=== PATIENT | female | born 1935 | race Caucasian/White ===

== ENCOUNTER 2019-10-23 10:55 | Observation (INO) | payer OTHER ==
[~2019-10-23] VITALS: Ht 160 cm; Wt 64.4 kg
--- OUTSIDE RECORDS SUMMARY | 2019-10-23 10:58 | XMS REPORT ---
Author Author [facility] Address Unknown Phone Unavailable Care Team Providers Care Hop Worker Name Role Phone Unavailable Unavailable Payers Payer Name Policy Type Policy Number Effective Date Expiration Date Problems This patient has no known problems. Allergies, Adverse Reactions, Alerts Allergy Name Allergy Type Status Severity Reaction(s) Onset Date Inactive Date Treating Clinician Comments codeine DA Active U 2018-05-11 00:00:00 alendronate sodium DA Active U 2018-05-11 00:00:00 ibandronate sodium DA Active U 2018-05-11 00:00:00 Medications This patient has no known medications. Results Test Description Test Time Test Comments Text Results Atomic Results Result Comments SCR MAMM BILATERAL JUDITH CAD DIGITAL 2018-09-28 16:03:52 - SCR MAMM BILATERAL JUDITH CAD DIGITALBILATERAL DIGITAL SCREENING MAMMOGRAM 3D/2D WITH CAD: 09/28/2018CLINICAL: Asymptomatic. Digital breast tomosynthesis was performed in addition to routine CC and MLO views. Current mammographic images were evaluated by either a [employer] M-Vu or a [employer] ImageChecker CAD (computer aided detection system). Comparison is made to exams dated 07/12/2017 mammogram, mammogram, and 12/11/2016 mammogram - [facility]. There are scattered fibroglandular tissues in both breasts. No suspicious mass, architectural distortion, malignant type calcification, or lymph node abnormality detected. Breast architecture is stable compared to prior exams.IMPRESSION: NEGATIVEThere is no mammographic evidence of malignancy. Resume annual screening mammography in one year. Elvi bustillo/candace:09/28/2018 16:03:52 copy to: Mario Marie MD, ph: [phone], fax: [phone] Technologist: Katharine Quintero , [facility]: BIRADS 1-2 Normal Mammogram BI-RADS: 1 Negative INTERVERTEBRAL DISC 2018-05-17 14:19:00 RUN DATE: 05/17/18 [place] - [facility] PAGE 1 RUN TIME: 1419 Specimen Inquiry RUN USER: INTERFACE PATIENT: SPENSER ARRINGTON LOC: CARLA U #: [id number] AGE/SX: 83/F ROOM: [facility] RE05/16/18REG DR: Mando Carlson MD : 35 BED: A DIS: 05/17/18 STATUS: DIS Dawood TLOC: SPEC #: [id number] RECD: 05/16/18-1203 STATUS: PATEL CLAYTON #: [id number] LUCILA: 05/16/18-[address]: Mando Carlson MD ENTERED: 05/16/18-1205 SP TYPE: INT DISC OTHR DR: Mario Marie MD ORDERED: GROSS [place]IES [place]: [place] [id number] [place] [address] Mando Carlson MD [id number] [address] PROCEDURES: GROSS (05/17/18-1406) TISSUES: CERVICAL VERTEBRA, NOS - DISC CLINICAL HISTORY COLLECTION DATE: 05/16/18 C3-4, C4-5M C5-6 SPONDYLOSIS FINAL DIAGNOSIS Cervical disc material, C3-C6, discectomy: FRAGMENTS OF CARTILAGE WITH DEGENERATIVE CHANGE NEGATIVE FOR MALIGNANCY RRB/sm D 64039, 04627 MACROSCOPIC The specimen is received in formalin, labeled with the patient's name and identified as "cervical disc". It consists of irregular fragments of moody to light pink fibrous tissue and possible fragments of bone measuring 4.0 X 4.0 X up to 0.9 cm in aggregate. Test Manager portions of tissue are submitted for histologic evaluation in a single cassette after decalcification. CONTINUED ON NEXT PAGE RUN DATE: 05/17/18 [facility] PAGE 2 RUN TIME: 1419 Specimen Inquiry RUN USER: INTERFACE SPEC #: [id number] PATIENT: SPENSER ARRINGTON #[id number] (Continued) MACROSCOPIC (Continued) GROSS PERFORMED AT [facility] [address] [place] [address] (p)[phone] MICROSCOPIC MICROSCOPIC PERFORMED AT [facility] All of the stains, including any controls performed, stain appropriately. [facility] [address] [facility], [place] [address] (p)[phone] PERFORMING SITE Processed at: [facility], [place] [address] [place] [address] Signed SIGNATURE ON FILE Zay Ch 05/17/18 1419 END OF REPORT
[2019-10-23] MEDS ORDERED: SODIUM CHLORIDE 0.9% 1000ML 1,000 ML IV STA (11:13)
[2019-10-23] MEDS ORDERED: PANTOPRAZOLE 40 MG 10ML VIAL IV ONE (11:30)
--- NOTE | 2019-10-23 11:32 | NUR ---
CATH PRN URINE SAMPLE PER MD ORDER
[2019-10-23] MEDS ORDERED: ULTRAM 50MG50 MG (11:36)
[2019-10-23] MEDS ORDERED: GABAPENTIN300 MG (11:36)
[2019-10-23] MEDS ORDERED: ALENDRONATE SOD70 MG PO (11:36)
[2019-10-23] MEDS ORDERED: PRAVASTATIN SOD20 MG PO (11:36)
[2019-10-23] MEDS ORDERED: MYRBETRIQ25 MG PO (11:36)
[2019-10-23] MEDS ORDERED: METOPROLOL TART50 MG PO (11:36)
[2019-10-23] MEDS ORDERED: DEXAMETHASONE4 MG (11:36)
[2019-10-23] MEDS ORDERED: DORZOLAMIDE-TIM10 ML (11:36)
[2019-10-23] MEDS ORDERED: LISINOPRIL10 MG PO (11:36)
[2019-10-23] MEDS ORDERED: ISOSORBIDE DINI20 MG (11:36)
[2019-10-23] MEDS ORDERED: LATANOPROST2.5 ML OP (11:36)
[2019-10-23] MEDS ORDERED: METFORMIN HCL500 MG PO (11:36)
[2019-10-23] MEDS ORDERED: NOVOLIN 70100 UNIT/3 (11:37)
[2019-10-23 11:46] LABS: BASOPHILS % 0.4 % (0.0-1.0); EOSINOPHILS # (AUTO) 0.2 (0.0-0.4); EOSINOPHILS % 3.2 % (0.0-6.0); HEMATOCRIT 42.3 % (34.2-44.1); HEMOGLOBIN 13.5 g/dL (12.0-16.0); LYMPHOCYTES # (AUTO) 0.7 (1.0-3.2); LYMPHOCYTES % 9.1 % (18.0-39.1); MEAN CORPUSCULAR HEMOGLOBIN 30.4 pg (28-32); MEAN CORPUSCULAR HGB CONC 31.9 g/dL (31-35); MEAN CORPUSCULAR VOLUME 95.3 fL (81-99); MONOCYTES # (AUTO) 0.8 (0.2-0.8); NEUTROPHILS # (AUTO) 5.7 (2.1-6.9); NEUTROPHILS % 75.9 % (38.7-80.0); PLATELET COUNT 148 x10e3/uL (140-360); RED BLOOD COUNT 4.44 x10e6/uL (3.6-5.1); RED CELL DISTRIBUTION WIDTH 13.5 % (11.7-14.4)
[2019-10-23 12:04] LABS: CLARITY,URINE CLEAR (CLEAR); COLOR,URINE YELLOW (YELLOW); LEUKOCYTE ESTERASE ,URINE MODERATE (NEGATIVE)
--- NOTE | 2019-10-23 12:04 | Diagnostic Imaging Report ---
CT BRAIN WO HISTORY: Headache, syncope. COMPARISON: None. Technique: Noncontrast axial scans were obtained from skull base to the vertex. Coronal and sagittal reconstructions obtained from the axial data. One or more of the following dose reduction techniques were used: Automated exposure control, adjustment of the mA and/or kV according to patient size, and/or utilization of iterative reconstruction technique. DISCUSSION: Scalp/Skull: Unremarkable. Brain sulci: Mildly prominent. Ventricles: Compensatory dilatation. Extra-axial spaces: No masses or fluid collections. Carotid and vertebral artery calcifications are present. Parenchyma: Mild bilateral deep white matter hypodensity is likely chronic microvascular ischemic change. Associated old small bilateral striatocapsular lacunar infarcts are present. There is an old small cortical infarct in the right posterior cerebellum. Otherwise, no masses, hemorrhage, or large vascular territory acute infarct. Dural sinuses: No abnormal densities. Sellar/Suprasellar region: Intact. Skull base: Intact. Incidental findings: Bilateral ocular lens replacement. Nonspecific right middle ear and right mastoid effusion. IMPRESSION: 1. No acute intracranial abnormalities. 2. 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 3. Mild generalized cerebral volume loss. 4. 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 Signed by: Dr. Armond Wise M.D. on 10/23/2019 12:02 PM
[2019-10-23 12:05] LABS: BILIRUBIN,URINE NEGATIVE (NEGATIVE); KETONES,URINE NEGATIVE (NEGATIVE); NITRITE,URINE POSITIVE (NEGATIVE); PROTEIN,URINE DIPSTICK NEGATIVE (NEGATIVE); URINE UROBILINOGEN 0.2 mg/dL (0.2 - 1)
[2019-10-23 12:06] LABS: BACTERIA,URINE FEW /HPF; EPITHELIAL CELLS,URINE FEW /LPF
[2019-10-23 12:07] LABS: INR 0.94; PROTHROMBIN TIME 12.7 seconds (11.9-14.5)
--- NOTE | 2019-10-23 12:07 | Diagnostic Imaging Report ---
EXAMINATION: CHEST SINGLE (PORTABLE) INDICATION: Syncope COMPARISON: None FINDINGS: LINES/TUBES:None LUNGS:The lungs are well-inflated. No focal consolidation or pulmonary edema. PLEURA:No pleural effusion or pneumothorax. MEDIASTINUM:The cardiomediastinal silhouette appears normal in size and shape. Atherosclerotic calcifications of the thoracic aorta. BONES/SOFT TISSUES:No acute osseous injury. ABDOMEN:No free air under the diaphragm. IMPRESSION: No focal pneumonia or pulmonary edema. Signed by: Cooper Hernandez MD on 10/23/2019 12:05 PM
[2019-10-23 12:08] LABS: PARTIAL THROMBOPLASTIN TIME 21.6 seconds (23.8-35.5)
[2019-10-23 12:19] LABS: ALANINE AMINOTRANSFERASE 17 IU/L (0-55); ALBUMIN 2.8 g/dL (3.5-5.0); ALBUMIN/GLOBULIN RATIO 1.3 (0.8-2.0); ALKALINE PHOSPHATASE 100 IU/L (40-150); BLOOD UREA NITROGEN 24 mg/dL (7-26); BUN/CREATININE RATIO 32 (6-25); CALCIUM 8.3 mg/dL (8.4-10.2); CHLORIDE 109 mmol/L (98-107); CREATINE KINASE 38 IU/L (29-168); CREATININE, SERUM 0.76 mg/dL (0.57-1.11); EST GLOMERULAR FILTRATION RATE > 60 ML/MIN (60-); GLUCOSE 188 mg/dL (74-118); MAGNESIUM 1.6 MG/DL (1.3-2.1); POTASSIUM 3.8 mmol/L (3.5-5.1); SODIUM 140 mmol/L (136-145)
[2019-10-23 12:31] LABS: ANION GAP 12.8 mmol/L (8-16); CARBON DIOXIDE 23 mmol/L (22-29)
[2019-10-23] MEDS ORDERED: SODIUM CHLORIDE 0.9% 1000ML 1,000 ML IV ONE (13:45)
[2019-10-23] MEDS ORDERED: ONDANSETRON HCL INJ 2MG/ML 2ML 2 MG/ML VIAL IV PRN (13:45)
[2019-10-23] MEDS: CEFTRIAXONE SOD 1 GM/NS 50 ML 50 ML IV SCH (15:03)
[2019-10-23] MEDS: FAMOTIDINE 20 MG/2 ML VIAL IV SCH (15:03)
[2019-10-23 19:24] LABS: CREATINE KINASE 28 IU/L (29-168)
[2019-10-23] MEDS ORDERED: DEXTROSE 50% SYRINGE 50 ML IV PRN (21:30)
[2019-10-23] MEDS: HYDROCODONE/APAP 5MG-325MG TAB PO PRN (21:46)
[2019-10-23] MEDS: INSULIN LISPRO 100 UNIT/1 ML 3ML VIAL SQ SCH (21:51)
[2019-10-23] MEDS ORDERED: HYDRALAZINE HCL 20 MG/ML VIAL IV PRN (22:15)
[2019-10-23] MEDS ORDERED: METOPROLOL TARTRATE 25 MG TAB ONE (22:30)
[2019-10-23] MEDS: METOPROLOL TARTRATE 50 MG TAB PO SCH (22:31)
[2019-10-24] VITALS (7 sets, daily range): BP systolic 153–197; BP diastolic 73–85
[2019-10-24 01:43] LABS: CREATINE KINASE MB 0.8 ng/mL (0-5.0)
--- NOTE | 2019-10-24 01:49 | NUR ---
PT PLACED IN HOSPITAL BED FOR PT COMFORT AND SAFETY. BED IS LOCKED AND IN LOWEST POSITION. CALL LIGHT IS WITHIN REACH IF IN NEED FOR ASSISTANCE. NAD NOTED AT THIS TIME. PT LAYING COMFORTABLY IN BED.
[2019-10-24] MEDS: CEFTRIAXONE SOD 1 GM/NS 50 ML 50 ML IV SCH ×2 (04:18→13:27)
[2019-10-24] MEDS: FAMOTIDINE 20 MG/2 ML VIAL IV SCH ×2 (04:18→13:27)
--- NOTE | 2019-10-24 07:08 | NUR ---
RECEIVED REPORT FROM OFF GOING NURSE. PATIENT IN ROOM IN HOSPITAL BED. AWAKE AND ALERT. NO S/S OF ACUTE DISTRESS. RESP EVEN AND NONLABORED. PENDING ROOM ASSIGNMENT FOR ADMISSION. BED DOWN, CALL LIGHT IN REACH, WILL CONTINUE TO MONITOR.
[2019-10-24 07:12] LABS: ANION GAP 12.9 mmol/L (8-16); BLOOD UREA NITROGEN 19 mg/dL (7-26); CARBON DIOXIDE 23 mmol/L (22-29); CHLORIDE 110 mmol/L (98-107); POTASSIUM 3.9 mmol/L (3.5-5.1); SODIUM 142 mmol/L (136-145)
[2019-10-24 07:13] LABS: ALANINE AMINOTRANSFERASE 15 IU/L (0-55); ALBUMIN 2.9 g/dL (3.5-5.0); ALBUMIN/GLOBULIN RATIO 1.3 (0.8-2.0); ALKALINE PHOSPHATASE 79 IU/L (40-150); BUN/CREATININE RATIO 25 (6-25); CALCIUM 8.6 mg/dL (8.4-10.2); CHOL/HDL RATIO 2.7 (3.0-3.6); CHOLESTEROL 136 MD/DL (0-199); CREATININE, SERUM 0.75 mg/dL (0.57-1.11); EST GLOMERULAR FILTRATION RATE > 60 ML/MIN (60-); GLUCOSE 134 mg/dL (74-118); HDL CHOLESTEROL 50 MG/DL (40-60); LDL CHOLESTEROL 77 MG/DL (60-130); TRIGLYCERIDES 46 MG/DL (0-149)
[2019-10-24] MEDS: INSULIN LISPRO 100 UNIT/1 ML 3ML VIAL SQ SCH ×4 (07:32→22:56)
[2019-10-24] MEDS: METOPROLOL TARTRATE 50 MG TAB PO SCH ×2 (08:06→17:46)
[2019-10-24 08:23] LABS: CREATINE KINASE 23 IU/L (29-168)
[2019-10-24 08:52] LABS: HEMOGLOBIN 13.9 g/dL (12.0-16.0); MEAN CORPUSCULAR HEMOGLOBIN 30.3 pg (28-32); MEAN CORPUSCULAR HGB CONC 32.3 g/dL (31-35); MEAN CORPUSCULAR VOLUME 93.7 fL (81-99); RED BLOOD COUNT 4.59 x10e6/uL (3.6-5.1)
[2019-10-24 08:53] LABS: BASOPHILS % 0.5 % (0.0-1.0); EOSINOPHILS # (AUTO) 0.2 (0.0-0.4); EOSINOPHILS % 2.3 % (0.0-6.0); LYMPHOCYTES # (AUTO) 1.4 (1.0-3.2); LYMPHOCYTES % 15.5 % (18.0-39.1); NEUTROPHILS # (AUTO) 6.1 (2.1-6.9); NEUTROPHILS % 70.4 % (38.7-80.0); PLATELET COUNT 146 x10e3/uL (140-360); RED CELL DISTRIBUTION WIDTH 13.8 % (11.7-14.4)
[2019-10-24] MEDS ORDERED: VITAMIN B122500 MCG PO (10:42)
[2019-10-24] MEDS ORDERED: preser vision OU (10:42)
[2019-10-24] MEDS ORDERED: GABAPENTIN300 MG PO (10:42)
[2019-10-24] MEDS ORDERED: [UNRECOGNIZED DRUG - OTHER] TOP (10:42)
[2019-10-24] MEDS ORDERED: NITROGLYCERIN0.4 MG SL (10:42)
[2019-10-24] MEDS ORDERED: LOW DOSE ASPIRI81 MG PO (10:42)
[2019-10-24] MEDS ORDERED: VITAMIN D32000 UNI1 PO (10:42)
[2019-10-24] MEDS ORDERED: BENADRYL25 M1 PO (10:42)
[2019-10-24] MEDS ORDERED: SODIUM CHLORIDE 0.9% 250ML 250 ML ONE (12:35)
[2019-10-24] MEDS ORDERED: VITAMIN C500 M1 PO (12:55)
[2019-10-24] MEDS ORDERED: NPH (12:55)
--- NOTE | 2019-10-24 13:08 | NUR ---
PATIENT ARRIVED ON THE UNIT AT 1150 PER BED FROM THE ER. PATIENT IS ALERT, AWAKE, AND IN STABLE CONDITION WITH NO S/S OF RESPIRATORY DISTRESS. PATIENT DENIES PAIN. TELEMETRY APPLIED. BRUISES NOTED TO UPPER EXTREMITIES. BED ALARM APPLIED. CALL LIGHT IS WITHIN REACH OF PATIENT- PATIENT INSTRUCTED TO CALL FOR ASSISTANCE NEEDED AND PRIOR TO GETTING OUT OF BED.
[2019-10-24] MEDS ORDERED: ALPRAZOLAM 0.5 MG TAB PO NR (14:30)
[2019-10-24] MEDS: HYDROCODONE/APAP 5MG-325MG TAB PO PRN ×2 (14:38→23:00)
[2019-10-24] MEDS: LOSARTAN POTASSIUM 100 MG TAB PO SCH (14:38)
[2019-10-24] MEDS ORDERED: DORZOLAMIDE-TIM10 ML OP (14:44)
--- NOTE | 2019-10-24 15:00 | NUR ---
Visit made by the Spiritual Care Department Pastoral Visitor, Paige Laurent. PV provided pastoral presence, prayer, hospitality, and supportive listening. Pastoral Visitor informed pt/family of the scope of [facility] and availability. CARLENE LARA Foreign Language Professor Spiritual Care Department O: [phone] Pager: [phone] ([phone] number calling from)
[2019-10-24] MEDS: ASCORBIC ACID 500 MG TAB PO SCH (17:46)
--- NOTE | 2019-10-24 19:05 | NUR ---
PATIENT REPOSITION IN BED- PATIENT IN STABLE CONDITION WITH NO S/S OF RESPIRATORY DISTRESS. NO PAIN VOICED. TELEMETRY APPLIED. BED ALARM APPLIED. CALL LIGHT IS WITHIN REACH, PATIENT INSTRUCTED TO CALL FOR ASSISTANCE NEEDED. BEDSIDE SHIFT REPORT GIVEN TO ONCOMING NURSE.
[2019-10-24] MEDS ORDERED: PRAVASTATIN 20 MG TAB PO SCH (21:00)
[2019-10-24] MEDS ORDERED: LATANOPROST(OPTH) 2.5 ML BTL OP SCH (21:00)
[2019-10-24] MEDS ORDERED: LISINOPRIL 10 MG TAB PO SCH (21:00)
--- NOTE | 2019-10-24 22:20 | History and Physical ---
CHIEF COMPLAINT: Syncopal episode. HISTORY OF PRESENT ILLNESS: This is an 84-year-old female, who presented to the ED with underlying syncopal episode occurred at home. Daughter at bedside reports that her mom this morning was found to be minimally responsive on examination. She reports that her father called her, noticed that her mom was not responsive. She did have a pulse. She was breathing with no issues. She called 911 and the patient became a little bit more responsive. The patient apparently was snoring. There was no reports of any history of seizure-like activity stroke-like symptoms, slurred speech or any facial drooping. No reports of any chest pain or palpitations with this occurred. The patient was seen and evaluated at bedside on the medical floor. She is currently doing well with no other issues at this time. The patient does take Benadryl at home for sleep, which could be contributing overall as well as gabapentin. The patient was evaluated at bedside. She reports doing much better today with no complaints. No reports of any chest pain or any palpitations. No fever, cough, or any recent infection. REVIEW OF SYSTEMS: Pertinent positives syncopal episodes. The rest of the 14-point review of systems have been reviewed with the patient and are negative. Denies any chest pain, palpitation, nausea, vomiting, diarrhea, dysuria, hematuria, frequency, urgency, lightheadedness, dizziness, abdominal pain, headaches, shortness of breath, cough, congestion, fever, or any other complaints. The rest of 14-point review of systems have been reviewed with the patient and are negative. ALLERGIES: NO KNOWN DRUG ALLERGIES. HOME MEDICATIONS: See med reconciliation form. PAST MEDICAL HISTORY: Type 2 diabetes, hypertension, peripheral neuropathy, osteoporosis. PAST SURGICAL HISTORY: Reports none. FAMILY HISTORY: Hypertension diabetes. SOCIAL HISTORY: No drugs, no alcohol, does not smoke. Good social support. PHYSICAL EXAMINATION: VITAL SIGNS: Temperature is 98.5, pulse is 77, respiratory rate is 19, blood pressure is 164/78, pulse ox 100% on room air. LABORATORY FINDINGS: Show white count 8.7, hemoglobin 13.8, hematocrit 43, platelets of 146. Coagulation PT 12, INR 0.94, PTT 21.6. Chemistry sodium 142, potassium 3.9, chloride 110, bicarb 23, anion gap of 12, BUN is 19, creatinine 0.75, glucose 134, calcium 8.6. LFTs within normal range. albumin 2.9, LDL 77. Urinalysis concerning for underlying urinary tract infection with positive nitrite, WBC 6-10. Flu was negative. Group A strep was negative. MICROBIOLOGY: Blood cultures were negative. Throat cultures so far negative. Urine culture shows gram-negative bacilli. IMAGING STUDIES: CT brain, no acute intracranial abnormalities. Mild supratentorial chronic microvascular ischemic changes with old small bilateral capsular lacunar infarct. Nothing acute seen. Mild generalized cerebral volume loss. 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 Chest x-ray was negative. PHYSICAL EXAMINATION: GENERAL: Not in acute distress, alert and oriented x3. Cooperative on examination. HEENT: Head is normocephalic, atraumatic. Eyes; pupils are equal, round, and reactive to light bilaterally. Extraocular movements intact bilaterally. NECK: Supple. Good range of motion. Throat; no evidence of erythema or exudates in the posterior pharynx. Has poor dentition. PULMONARY: Clear to auscultation bilaterally. No wheezing, rales, or rhonchi. No crackles appreciated. CARDIOVASCULAR: Positive S1, S2. No murmurs, rubs, or gallops. ABDOMEN: Soft, nondistended, nontender to palpation. Bowel sounds present. MUSCULOSKELETAL: Strength is 5/5 throughout. No evidence of any muscle deficits on examination. No weakness appreciated. NEUROLOGIC: Cranial nerves 2 through 12 grossly intact. No evidence of any neurologic deficits on exam. SKIN: Intact. Warm to touch. Good cap refill. PSYCHIATRIC: Normal affect and mood. EXTREMITIES: No edema. Good range of motion throughout. IMPRESSION: 1. Syncopal episode, likely secondary to underlying urinary tract infection. 2. Urinary tract infection. 3. Type 2 diabetes. 4. Hypertension. PLAN: At this time as per her syncopal episode it seems to be likely from her UTI despite she had no symptoms. We will monitor the urine culture which is gram-negative bacilli. Blood cultures are negative. IV antibiotic therapy has been initiated. We will go ahead and get a 2D echo. Continue with cardiac telemetry. Troponins have been negative. We will go ahead and consult with Cardiology as well. MRI of the brain and carotid ultrasound has been ordered as well to complete the workup. We will get PT and OT evaluation. Insulin sliding scale, Accu-Cheks, A1c. TSH level. Resume same home medications. Monitor very closely p.r.n. hydralazine. Lovenox for DVT prophylaxis. MD TRENT Johnson/GALINA /[id number]
--- NOTE | 2019-10-24 23:24 | Consultation ---
DATE OF CONSULTATION: 10/24/2019 Cardiology Consult HISTORY OF PRESENT ILLNESS: Myesha Jose is an 84-year-old female with a primary history of hypertension, hyperlipidemia, and diabetes, admitted after a syncopal episode after a walk from the dining room to the kitchen using her walker associated with loss of consciousness that lasted for minutes. Family has witnessed the event and denies any signs of seizure or jerking movements. No reports of incontinence or apnea. However, family reports low systolic blood pressure when EMS took the BP, but no loss of pulse. There is also no report of any complaints from the patient of any chest pains or palpitations or vomiting. The patient also complained of having fast heartbeat sometimes and also she was told she had a heart attack in 1996 from which she had an angioplasty, but never had any problems since then and have not seen any semiconductor engineer since 1996. MEDICAL HISTORY: Hypertension, diabetes, hyperlipidemia, osteoarthritis, heart disease or CAD. SURGICAL HISTORY: She had neck and back surgeries, cataract and tubal ligation. FAMILY HISTORY: Parents are . Dad of pneumonia and kidney problems. Mom of old age. SOCIAL HISTORY: She is nonsmoker. No alcohol or drug use. ALLERGIES: SHE HAS ALLERGY TO CODEINE. HOME MEDICATIONS: She takes: 1. Aspirin. 2. Lisinopril 10 mg daily. 3. Metoprolol 75 mg b.i.d. 4. Aspirin 81 mg daily. 5. Pravastatin 20 mg daily. 6. Metformin 500 mg daily. 7. Insulin NPH. 8. She also takes gabapentin 200 mg three times a day. 9. Vitamin B12. 10. Vitamin D3. 11. Ascorbic acid. PHYSICAL EXAMINATION: VITAL SIGNS: Blood pressure is 164/78, pulse rate of 77, respiratory rate of 19, temperature is 98.5, 100% on room air. GENERAL: The patient is well developed, well nourished, no acute respiratory distress. SKIN: Normal in appearance, texture, and temperature, warm and dry. HEENT: The patient's cranium is normocephalic and atraumatic. Pupils are equally round and reactive to light and accommodation. Sclera is nonicteric. Ears are normal. Mucosa is moist. Throat is clear. NECK: Supple. Full range of motion. No thyromegaly. No JVD. RESPIRATORY: Normal respiratory effort. LUNGS: Clear to auscultation bilaterally. No wheezing or rhonchi or rales or rubs. CARDIOVASCULAR: S1 and S2 audible. Regular rate and rhythm. No significant murmurs. GASTROINTESTINAL: Soft, nontender, nondistended. Bowel sounds are present. EXTREMITIES: No cyanosis or edema. NEUROVASCULAR: Motor is intact. Pulses are palpable 1+ throughout. NEUROLOGIC: Motor and sensory examination of the upper and lower extremities is normal. Reflexes are normal and symmetrical. ASSESSMENT AND PLAN: The patient is an 84-year-old admitted after a syncopal episode, it seems like a vasovagal reflex or maybe orthostatic hypotension or maybe a possible cardiac etiology. ED EKG showed normal sinus rhythm, non-ischemic and no evidence of any heart blocks. However, patient had five beats of ventricular run over night of which patient denies any symptoms. 1. We will monitor on telemetry and monitor hemodynamics and electrolyte imbalances and give replacement if necessary. Continue on aspirin, BUDDY and beta blockers. 2. Echocardiogram. 3. Carotid Doppler. Thank you for this consultation. Further recommendation will follow depending on clinical course. Dictated by Mary Jane Herrera NP MD LUCRECIA Solis/GALINA /[id number]
[2019-10-25] VITALS (9 sets, daily range): BP systolic 104–190; BP diastolic 49–78
[2019-10-25] MEDS: FAMOTIDINE 20 MG/2 ML VIAL IV SCH (01:23)
--- NOTE | 2019-10-25 04:25 | NUR ---
ROUTINE VITAL CHECK PERFORMED, REPORTED BY [facility] SNORKELLING INSTRUCTOR PATIENT BLOOD PRESSURE 190/77, RECHECKED BY THIS NURSE SBP 182/76, PRN HYDRALAZINE GIVEN ORDERED, WILL REASSESS VITALS CA PROTOCOL
[2019-10-25] MEDS: HYDROCODONE/APAP 5MG-325MG TAB PO PRN (04:57)
--- NOTE | 2019-10-25 05:00 | NUR ---
patient c/o chest pressure mid chest pain level 7/10, EKG STAT ORDERED PER PROTOCOL, MD CASTREJON PAGED, INFORMED OF PATIENT COMPLAINT, AND THE EKG RESULT, NO ORDERS GIVEN, STATES "I WILL SEE THE PATIENT DURING ROUNDING, PRN PAIN MEDICATION GIVEN PO FOR RELIEF
[2019-10-25 05:40] LABS: BASOPHILS % 0.4 % (0.0-1.0); EOSINOPHILS # (AUTO) 0.4 (0.0-0.4); EOSINOPHILS % 4.4 % (0.0-6.0); HEMATOCRIT 46.7 % (34.2-44.1); HEMOGLOBIN 15.7 g/dL (12.0-16.0); LYMPHOCYTES # (AUTO) 1.7 (1.0-3.2); LYMPHOCYTES % 18.8 % (18.0-39.1); MEAN CORPUSCULAR HEMOGLOBIN 30.5 pg (28-32); MEAN CORPUSCULAR HGB CONC 33.6 g/dL (31-35); MEAN CORPUSCULAR VOLUME 90.7 fL (81-99); MONOCYTES # (AUTO) 0.9 (0.2-0.8); MONOCYTES % 10.2 % (4.4-11.3); NEUTROPHILS # (AUTO) 5.9 (2.1-6.9); NEUTROPHILS % 65.9 % (38.7-80.0); PLATELET COUNT 166 x10e3/uL (140-360); RED BLOOD COUNT 5.15 x10e6/uL (3.6-5.1); RED CELL DISTRIBUTION WIDTH 13.8 % (11.7-14.4)
[2019-10-25 06:01] LABS: CALCIUM 8.8 mg/dL (8.4-10.2); CREATININE, SERUM 0.96 mg/dL (0.57-1.11)
[2019-10-25 06:24] LABS: THYROID STIMULATING HORMONE 1.642 uIU/mL (0.350-4.940)
--- NOTE | 2019-10-25 07:21 | NUR ---
SBAR REPORT GIVEN TO ONCOMING SHIFT RN CASSANDRA, INFORMED HER OF PATIENT C/O CHEST PAIN, AND MD CASTREJON TO SEE PT, EKG STRIP IN PT CHART
--- NOTE | 2019-10-25 07:45 | NUR ---
Paged Dr. Modesto barnhart for call back.
--- NOTE | 2019-10-25 07:54 | NUR ---
Dr. Juanito Walters here rounding made aware patient c/o of chest pain, and jaw pain, also made aware she c/o eariler of chest pain, ERG showed SR with PVC, received orders to give patient 1mg of Ativan IV.
[2019-10-25] MEDS ORDERED: LORAZEPAM INJ 2 MG/ML VIAL IV PRN (08:00)
[2019-10-25] MEDS: METOPROLOL TARTRATE 50 MG TAB PO SCH (08:17)
[2019-10-25] MEDS: LOSARTAN POTASSIUM 100 MG TAB PO SCH (08:18)
[2019-10-25] MEDS: ASCORBIC ACID 500 MG TAB PO SCH ×2 (08:21→12:02)
[2019-10-25] MEDS ORDERED: LORAZEPAM INJ 2 MG/ML VIAL IV ONE (08:30)
[2019-10-25] MEDS: INSULIN LISPRO 100 UNIT/1 ML 3ML VIAL SQ SCH ×2 (08:32→12:03)
[2019-10-25] MEDS ORDERED: CEFTRIAXONE SOD 1 GM/NS 50 ML 50 ML IV SCH (09:00)
[2019-10-25] MEDS ORDERED: ONDANSETRON HCL 4 MG ORAL DISINTEGRATING TAB PO PRN (09:30)
--- NOTE | 2019-10-25 11:26 | Diagnostic Imaging Report ---
EXAMINATION: MRI of the brain without contrast. HISTORY: Syncope COMPARISON: Head CT 10/23/2019 TECHNIQUE: Sagittal T2; axial DWI, T2, FLAIR, T1-IR, T2 gradient echo; coronal FLAIR. FINDINGS: Parenchyma: 1. Few scattered and mildly confluent periventricular matter T2 and FLAIR hyperintense foci, which most likely corresponds to nonspecific chronic microvascular ischemic changes. 2. Unchanged tiny bilateral striatocapsular lacunar infarcts. 3. Again noted small chronic cortical infarct in the right posterior cerebellum and left superior cerebellum. 4. No mass, hemorrhage, acute or chronic infarcts. Skull: Unremarkable. Vessels: Expected flow voids present in the major arteries and dural sinuses. Extra-axial spaces: No abnormal signal intensity or mass effect. Brain volume: Within normal limits for age. Ventricles: No hydrocephalus or displacement. Foramen magnum: Unremarkable. Sella: Unremarkable. Paranasal / mastoid sinuses: No significant inflammatory disease. Incidental findings: Partially visualized upper cervical spine fusion hardware and associated magnetic susceptibility artifact. IMPRESSION: 1. No acute infarcts, unchanged compared to head CT of 10/23/2019. 2. Stable mild nonspecific white matter chronic microvascular ischemic changes and small chronic infarcts as detail above. Signed by: Dr. Essie Martino M.D. on 10/25/2019 11:23 AM
--- NOTE | 2019-10-25 13:30 | NUR ---
Nutrition Screen Note RD Recommendation for Physician: - Continue current diet - BG and insulin management per MD Plan of Care: RD following, monitoring for tolerance and adequacy Nutrition reason for involvement: Nutrition risk trigger- MST3 Primary Diagnose(s): syncope PMH: DM2, HTN, osteoporosis, peripheral neuropathy Ht: 63 in Wt: 142 lb BMI: 25.2 kg/m2 IBW: [address] Assessment: (10/25/19) 84 YOF admitted for syncope, evaluated today MST screen. 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 Pt with no wt loss per family and no difficulties chewing or swallowing. No reported GI distress. Chart reviewed. Labs and meds reviewed, elevated BG trend- currently on humalog. Current Diet: 1800 ADA Malnutrition Evaluation (10/25/19) The patient does not meet criteria for a specified degree of malnutrition at this time. Will re-evaluate at follow-up as appropriate. Diet Education Needs Assessment: Diet education not indicated. Diet tolerance: tolerating po Nutrition Care Level: low Signed: Neema Camacho RD, LD, [facility]
--- NOTE | 2019-10-25 16:00 | NUR ---
Patient discharged home verbalized understanding of d/c instructions. IV access discontinued prior to discharge, escorted via wheel chair by nursing staff to meet ride in front of hospital.
[2019-10-25] MEDS ORDERED: METOPROLOL TARTRATE 50 MG TAB PO SCH (17:00)
[2019-10-25] MEDS ORDERED: ALPRAZOLAM 0.5 MG TAB PO ONE (18:00)
[2019-10-25] MEDS ORDERED: FAMOTIDINE 20 MG TAB PO SCH (21:00)
--- NOTE | 2019-10-26 05:38 | Discharge Summary ---
FINAL DISCHARGE DIAGNOSES: 1. Syncopal episode, likely vasovagal in nature. 2. Urinary tract infection, which also could explain underlying syncopal episode. 3. Type 2 diabetes. 4. Hypertension. CONSULTANTS: Cardiology. VITAL SIGNS: Temperature 96, pulse 86, respiratory rate is 18, blood pressure 147/65, pulse ox is 96% on room air. LABORATORY FINDINGS: Show white count 8.8, hemoglobin 15, hematocrit 46, platelets of 166. Coagulation; PT 12, INR 0.94, PTT 21. Chemistry; sodium 140, potassium 4, chloride 107, bicarb 20, anion gap of 17, BUN is 27, creatinine is 0.96, glucose is 217, calcium is 8.8, total bilirubin is 0.4. LFTs are within normal range. Ammonia level was 49. Troponins were all negative. LDL found to be 77. TSH is 1.6. Urinalysis concerning for UTI. Serology group A strep negative, influenza negative. MICROBIOLOGY: Urine culture positive for E coli, though cultures were found to be negative. Blood cultures were found to be negative greater than 48 hours. IMAGING STUDIES: Chest x-ray, no focal pneumonia or pulmonary edema. CT brain was found to be negative for any acute findings. MRI of the brain, no acute infarct seen. A 2D echo shows an EF of 45% to 50%. Carotid ultrasound shows no evidence of any carotid stenosis bilaterally. HOSPITAL COURSE: This is an 84-year-old female, who came into the ED after having a syncopal episode that occurred at home. The patient was admitted presumed to have underlying vasovagal nature, underlying urinary tract infection leading to underlying syncopal episode. Full workup was performed. The patient was under observation. MRI of the brain was found to be negative. CT brain found to be negative. Carotid ultrasound found to be negative. A 2D echo shows an EF of 45%. The patient was found to have urinary tract infection, which treated accordingly with IV antibiotics. It seems that the likely etiology of her syncope is likely due to urinary tract infection. She was discharged on oral Omnicef. Cardiology was consulted. As per Cardiology, cardiac enzymes were found to be negative. A 2D echo results above. No further cardiac workup was needed and was cleared for discharge by Cardiology. The patient worked with PT and OT. She was ambulating well with no complaints. She had no overnight events. She had no other complaints. The patient was back to normal baseline prior to being discharged home. I discussed with the family at bedside and they verbalized in agreement that the patient is ready for discharge home. On the day of discharge, vital signs were stable, labs reviewed and stable. The patient seen and evaluated, examined thoroughly on the day of discharge, no other complaints. The patient verbalized understanding and agrees to plan of care to follow up accordingly as an outpatient with primary care physician in 1 week and the paddock judge in 2 weeks' time. MEDICATIONS: See med reconciliation form. DISPOSITION: Home. CONDITION: Stable. DIET: Heart healthy. In the event of any worsening symptoms, the patient was advised to come back to the ED for further evaluation. Discharge summary took greater than 35 minutes. MD TRENT Johnson/MODL /[id number]
== END 2019-10-25 16:00 | disposition home or self-care (01) ==
LOC: ER 10:55 → ERHOLD 13:48 → MED/SURG3 10-24 11:50
PROVIDERS: ADMIT Internal Medicine; ATTEND Internal Medicine
DX: N39.0 Urinary tract infection, site not specified (principal); E11.9 Type 2 diabetes mellitus without complications; I10 Essential (primary) hypertension; E78.5 Hyperlipidemia, unspecified; M19.90 Unspecified osteoarthritis, unspecified site; I25.10 Atherosclerotic heart disease of native coronary artery without angina pectoris
CPT/HCPCS: 36415 ×3; 70450; 70551; 71045; 80048; 80053 ×2; 80061; 81001; 82140; 82550 ×2; 82553 ×2; 82948 ×3; 83518; 83605; 83735; 84443; 84484 ×2; 85025 ×3; 85610; 85730; 87040; 87070; 87086; 87186; 87400; 93005; 93041; 93306; 93880; 99285; C9113; G0378 ×3; J0360; J0696 ×3; J2060; J2405; J7030; J7050

== ENCOUNTER 2022-05-08 07:40 | Inpatient (IN) | payer MEDICARE, OTHER ==
[~2022-05-08] VITALS: Ht 160 cm; Wt 64.4 kg
[~2022-05-08 07:40] MED LIST: ALENDRONATE SOD70 MG PO; BENADRYL25 M1 PO; DEXAMETHASONE4 MG; DORZOLAMIDE-TIM10 ML; DORZOLAMIDE-TIM10 ML OP; GABAPENTIN300 MG; GABAPENTIN300 MG PO; ISOSORBIDE DINI20 MG; LATANOPROST2.5 ML OP; LISINOPRIL10 MG PO; LOW DOSE ASPIRI81 MG PO; METFORMIN HCL500 MG PO; METOPROLOL TART50 MG PO; MYRBETRIQ25 MG PO; NITROGLYCERIN0.4 MG SL; NOVOLIN 70100 UNIT/3; NPH; PRAVASTATIN SOD20 MG PO; ULTRAM 50MG50 MG; VITAMIN B122500 MCG PO; VITAMIN C500 M1 PO; VITAMIN D32000 UNI1 PO; [UNRECOGNIZED DRUG - OTHER] TOP; preser vision OU
[2022-05-08] MEDS ORDERED: SODIUM CHLORIDE 0.9% 1000ML 1,000 ML IV STA (07:57)
[2022-05-08 08:11] LABS: BASOPHILS % 0.1 % (0.0-1.0); LYMPHOCYTES # (AUTO) 0.8 (1.0-3.2); LYMPHOCYTES % 5.2 % (18.0-39.1); MEAN CORPUSCULAR HEMOGLOBIN 29.9 pg (28-32); MEAN CORPUSCULAR HGB CONC 31.8 g/dL (31-35); MONOCYTES # (AUTO) 0.5 (0.2-0.8); MONOCYTES % 3.6 % (4.4-11.3); NEUTROPHILS # (AUTO) 13.2 (2.1-6.9); NEUTROPHILS % 90.5 % (38.7-80.0); PLATELET COUNT 215 x10e3/uL (140-360); RED BLOOD COUNT 4.68 x10e6/uL (3.6-5.1); RED CELL DISTRIBUTION WIDTH 13.2 % (11.7-14.4)
[2022-05-08] MEDS ORDERED: ONDANSETRON HCL INJ 2MG/ML 2ML 2 MG/ML VIAL IV STA ×2 (08:15)
[2022-05-08] MEDS ORDERED: FENTANYL CITRATE/PF 100MCG/2 ML INJ IV ONE ×2 (08:30)
[2022-05-08] MEDS ORDERED: FENTANYL CITRATE/PF 100MCG/2 ML INJ ONE (08:31)
[2022-05-08] MEDS ORDERED: FLONASE ALLERG9.9 ML INH (09:05)
[2022-05-08] MEDS ORDERED: MYRBETRIQ50 MG PO (09:05)
[2022-05-08] MEDS ORDERED: ULTRAM50 MG PO (09:05)
[2022-05-08] MEDS ORDERED: LOSARTAN POTAS100 MG PO (09:05)
[2022-05-08] MEDS ORDERED: CARVEDILOL25 MG PO (09:05)
[2022-05-08 09:16] LABS: INR 0.96; PROTHROMBIN TIME 13.7 seconds (11.9-14.5)
[2022-05-08 09:17] LABS: ALBUMIN 3.7 g/dL (3.5-5.0); ALBUMIN/GLOBULIN RATIO 1.4 (0.8-2.0); ANION GAP 17.6 mmol/L (8-16); CALCIUM 8.8 mg/dL (8.4-10.2); CREATININE, SERUM 0.86 mg/dL (0.57-1.11); MAGNESIUM 2.1 MG/DL (1.3-2.1); PARTIAL THROMBOPLASTIN TIME 26.3 seconds (23.8-35.5); POTASSIUM 4.6 mmol/L (3.5-5.1)
[2022-05-08 09:40] LABS: CREATINE KINASE MB 2.6 ng/mL (0-5.0)
[2022-05-08 10:19] LABS: CLARITY,URINE CLOUDY (CLEAR); COLOR,URINE YELLOW (YELLOW)
[2022-05-08 10:20] LABS: KETONES,URINE NEGATIVE (NEGATIVE); LEUKOCYTE ESTERASE ,URINE NEGATIVE (NEGATIVE); NITRITE,URINE NEGATIVE (NEGATIVE); PROTEIN,URINE DIPSTICK NEGATIVE (NEGATIVE); URINE UROBILINOGEN 0.2 mg/dL (0.2 - 1)
[2022-05-08 10:30] LABS: BACTERIA,URINE MANY /HPF; EPITHELIAL CELLS,URINE RARE /LPF; RBC,URINE 0-5 /HPF (0-5)
[2022-05-08] MEDS: INSULIN LISPRO 100 UNIT/1 ML 3ML VIAL SQ SCH ×3 (12:08→21:00)
[2022-05-08] MEDS: SODIUM CHLORIDE 0.9% 1000ML 1,000 ML IV SCH ×2 (12:14→21:50)
[2022-05-08] MEDS: Morphine 2mg Syringe 2 MG/ML SYR IV PRN ×3 (12:29→21:50)
[2022-05-08] MEDS: ONDANSETRON HCL INJ 2MG/ML 2ML 2 MG/ML VIAL IV PRN ×3 (12:29→21:51)
[2022-05-08 17:05] LABS: CREATINE KINASE MB 2.8 ng/mL (0-5.0)
[2022-05-08 18:03] VITALS: BP 139/63
[2022-05-08 18:26] VITALS: BP 139/63
[2022-05-08 20:00] VITALS: BP 140/59
[2022-05-08 21:37] VITALS: BP 140/59
[2022-05-08] MEDS ORDERED: TRAMADOL/APAP 37.5MG-325MG TAB PO PRN (22:00)
[2022-05-08] MEDS: INSULIN GLARGINE 100 UNITS/ML VIAL SQ SCH (22:00)
[2022-05-08] MEDS: CARVEDILOL 12.5 MG TAB PO SCH (22:00)
[2022-05-09] VITALS (7 sets, daily range): BP systolic 117–172; BP diastolic 58–76
[2022-05-09] MEDS: ONDANSETRON HCL INJ 2MG/ML 2ML 2 MG/ML VIAL IV PRN ×4 (04:54→17:47)
[2022-05-09] MEDS: Morphine 2mg Syringe 2 MG/ML SYR IV PRN ×6 (04:54→21:49)
[2022-05-09] MEDS: HYDRALAZINE HCL 20 MG/ML VIAL IV PRN (04:55)
[2022-05-09 04:59] LABS: BASOPHILS % 0.1 % (0.0-1.0); HEMATOCRIT 43.9 % (34.2-44.1); LYMPHOCYTES # (AUTO) 0.8 (1.0-3.2); LYMPHOCYTES % 5.5 % (18.0-39.1); MEAN CORPUSCULAR HGB CONC 31.9 g/dL (31-35); MEAN CORPUSCULAR VOLUME 94.2 fL (81-99); MONOCYTES # (AUTO) 0.8 (0.2-0.8); MONOCYTES % 5.2 % (4.4-11.3); NEUTROPHILS # (AUTO) 12.9 (2.1-6.9); NEUTROPHILS % 88.4 % (38.7-80.0); PLATELET COUNT 176 x10e3/uL (140-360); RED BLOOD COUNT 4.66 x10e6/uL (3.6-5.1); RED CELL DISTRIBUTION WIDTH 13.2 % (11.7-14.4)
[2022-05-09 05:28] LABS: ALBUMIN/GLOBULIN RATIO 1.1 (0.8-2.0); ANION GAP 14.8 mmol/L (8-16); CALCIUM 7.8 mg/dL (8.4-10.2); CREATININE, SERUM 0.73 mg/dL (0.57-1.11); POTASSIUM 4.8 mmol/L (3.5-5.1)
[2022-05-09 05:58] LABS: CREATINE KINASE MB 1.9 ng/mL (0-5.0)
[2022-05-09] MEDS: SODIUM CHLORIDE 0.9% 1000ML 1,000 ML IV SCH ×2 (08:14→21:18)
[2022-05-09] MEDS: ASCORBIC ACID 500 MG TAB PO SCH ×3 (08:14→17:11)
[2022-05-09] MEDS: INSULIN LISPRO 100 UNIT/1 ML 3ML VIAL SQ SCH ×4 (08:16→21:22)
[2022-05-09] MEDS: DORZOLAMIDE/TIMOLOL (OPTH SOL) 10 ML DRPETTE OP SCH ×2 (09:00→17:10)
[2022-05-09] MEDS: FLUTICASONE PROPIONATE NASAL SPRAY NS SCH ×2 (09:00→17:11)
[2022-05-09] MEDS: MYRBETRIQ 50 MG PO SCH (09:00)
[2022-05-09] MEDS: CARVEDILOL 12.5 MG TAB PO SCH ×2 (09:06→17:12)
[2022-05-09] MEDS: LOSARTAN POTASSIUM 100 MG TAB PO SCH (09:07)
[2022-05-09] MEDS: GABAPENTIN 100 MG CAP PO SCH ×3 (09:07→21:13)
[2022-05-09 14:08] LABS: CREATINE KINASE MB 1.6 ng/mL (0-5.0)
[2022-05-09] MEDS ORDERED: ENOXAPARIN SOD INJ 40 MG/0.4 ML SYR SC SCH (17:00)
[2022-05-09] MEDS: PRAVASTATIN 20 MG TAB PO SCH (21:12)
[2022-05-09] MEDS: INSULIN GLARGINE 100 UNITS/ML VIAL SQ SCH (21:53)
[2022-05-10] VITALS (9 sets, daily range): BP systolic 119–174; BP diastolic 47–82
[2022-05-10] MEDS: ONDANSETRON HCL INJ 2MG/ML 2ML 2 MG/ML VIAL IV PRN (05:17)
[2022-05-10] MEDS: Morphine 2mg Syringe 2 MG/ML SYR IV PRN (05:18)
[2022-05-10] MEDS: SODIUM CHLORIDE 0.9% 1000ML 1,000 ML IV SCH ×6 (05:19→21:00)
[2022-05-10] MEDS ORDERED: ROPIVACAINE 246.25 MG, EPINEPHRINE HCL 1:1000 1ML 0.5 MG, CLONIDINE HCL 0.08 MG, KETORO... INJ NR ×5 (07:00)
[2022-05-10] MEDS: INSULIN LISPRO 100 UNIT/1 ML 3ML VIAL SQ SCH ×4 (07:30→21:36)
[2022-05-10] MEDS ORDERED: SODIUM CHLORIDE 0.9% 500ML 500 ML ONE (07:57)
[2022-05-10] MEDS ORDERED: Vancomycin IV 1 GM VIAL ONE (07:57)
[2022-05-10] MEDS ORDERED: TRANEXAMIC ACID 20 ML ONE (07:57)
[2022-05-10] MEDS: ASCORBIC ACID 500 MG TAB PO SCH ×3 (08:00→17:35)
[2022-05-10] MEDS: DORZOLAMIDE/TIMOLOL (OPTH SOL) 10 ML DRPETTE OP SCH ×2 (08:09→17:42)
[2022-05-10] MEDS: FLUTICASONE PROPIONATE NASAL SPRAY NS SCH ×2 (08:09→17:42)
[2022-05-10] MEDS: CARVEDILOL 12.5 MG TAB PO SCH ×2 (08:10→17:35)
[2022-05-10] MEDS: GABAPENTIN 100 MG CAP PO SCH ×3 (08:11→21:21)
[2022-05-10] MEDS ORDERED: INSULIN REGULAR, HUMAN 100 UNIT/1 ML ONE (08:29)
[2022-05-10] MEDS: MYRBETRIQ 50 MG PO SCH (09:00)
[2022-05-10] MEDS ORDERED: ACETAMINOPHEN 1000 MG/100 ML 100 ML IV ONE (09:48)
[2022-05-10] MEDS ORDERED: NALOXONE HCL INJ 0.4 MG/ML AMP IV PRN (11:00)
[2022-05-10] MEDS ORDERED: HYDROMORPHONE 0.2MG/ML-SOD CHL 30ML PCA SYRINGE IV PRN (11:00)
[2022-05-10] MEDS ORDERED: ONDANSETRON HCL INJ 2MG/ML 2ML 2 MG/ML VIAL IV PRN (11:00)
[2022-05-10] MEDS ORDERED: FENTANYL CITRATE/PF 100MCG/2 ML INJ ONE ×2 (11:20→13:15)
[2022-05-10] MEDS ORDERED: HYDROMORPHONE 0.2MG/ML-SOD CHL 30ML PCA SYRINGE IV ONE ×2 (11:27→11:48)
[2022-05-10] MEDS ORDERED: ACETAMINOPHEN 1000 MG/100 ML IV SCH (12:00)
[2022-05-10] MEDS: LOSARTAN POTASSIUM 100 MG TAB PO SCH (12:16)
[2022-05-10] MEDS: ACETAMINOPHEN 1000 MG/100 ML IV SCH ×3 (12:22→18:00)
[2022-05-10] MEDS ORDERED: NEOSTIGMINE 1 MG/ML 10ML VIAL ONE (12:41)
[2022-05-10] MEDS ORDERED: ROCURONIUM BROMIDE 10 MG/ML 5ML VIAL IV ONE (12:41)
[2022-05-10] MEDS ORDERED: PROPOFOL IV EMULSION 10 MG/ML 20 ML VIAL ONE (12:41)
[2022-05-10] MEDS ORDERED: DEXAMETHASONE SOD PHOS INJ 4 MG/ML SDV ONE (12:41)
[2022-05-10] MEDS ORDERED: PHENYLEPHRINE HCL 1% 10 MG/ML VIAL ONE (12:41)
[2022-05-10] MEDS ORDERED: POVIDONE IODINE 0.05% 0.05 % ML PO ONE (12:41)
[2022-05-10] MEDS ORDERED: GLYCOPYRROLATE INJ 0.2 MG/ML VIAL ONE (12:41)
[2022-05-10] MEDS ORDERED: ONDANSETRON HCL INJ 2MG/ML 2ML 2 MG/ML VIAL ONE (12:41)
[2022-05-10] MEDS ORDERED: SEVOFLURANE INHAL SOLN 250 ML PEN BTL ONE (12:41)
[2022-05-10] MEDS: PRAVASTATIN 20 MG TAB PO SCH (21:21)
[2022-05-10] MEDS: INSULIN GLARGINE 100 UNITS/ML VIAL SQ SCH (21:35)
[2022-05-11] VITALS (7 sets, daily range): BP systolic 117–151; BP diastolic 50–74
[2022-05-11] MEDS: ACETAMINOPHEN 1000 MG/100 ML IV SCH
[2022-05-11 05:38] LABS: HEMATOCRIT 34.7 % (34.2-44.1); HEMOGLOBIN 11.3 g/dL (12.0-16.0)
[2022-05-11] MEDS: SODIUM CHLORIDE 0.9% 1000ML 1,000 ML IV SCH ×3 (06:00→17:04)
[2022-05-11] MEDS: MYRBETRIQ 50 MG PO SCH (09:00)
[2022-05-11] MEDS: RIVAROXABAN 10 MG TABLET PO SCH ×2 (09:41→17:05)
[2022-05-11] MEDS: ASCORBIC ACID 500 MG TAB PO SCH ×3 (09:41→17:05)
[2022-05-11] MEDS: FLUTICASONE PROPIONATE NASAL SPRAY NS SCH ×2 (09:42→17:05)
[2022-05-11] MEDS: DORZOLAMIDE/TIMOLOL (OPTH SOL) 10 ML DRPETTE OP SCH ×2 (09:42→17:05)
[2022-05-11] MEDS: CARVEDILOL 12.5 MG TAB PO SCH ×2 (09:43→17:05)
[2022-05-11] MEDS: LOSARTAN POTASSIUM 100 MG TAB PO SCH (09:43)
[2022-05-11] MEDS: GABAPENTIN 100 MG CAP PO SCH ×3 (09:44→22:26)
[2022-05-11] MEDS: INSULIN LISPRO 100 UNIT/1 ML 3ML VIAL SQ SCH ×4 (10:06→22:32)
[2022-05-11] MEDS: PRAVASTATIN 20 MG TAB PO SCH (22:26)
[2022-05-11] MEDS: INSULIN GLARGINE 100 UNITS/ML VIAL SQ SCH (22:31)
[2022-05-12] VITALS (8 sets, daily range): BP systolic 113–151; BP diastolic 51–77
[2022-05-12 05:43] LABS: HEMATOCRIT 33.4 % (34.2-44.1); HEMOGLOBIN 10.5 g/dL (12.0-16.0)
[2022-05-12] MEDS ORDERED: POLYETHYLENE GLYCOL 3350 17 GM PACK PO ONE (09:15)
[2022-05-12] MEDS ORDERED: PANTOPRAZOLE SOD 40 MG TABEC PO ONE (09:30)
[2022-05-12] MEDS: ASCORBIC ACID 500 MG TAB PO SCH ×3 (10:04→16:25)
[2022-05-12] MEDS: FLUTICASONE PROPIONATE NASAL SPRAY NS SCH ×2 (10:05→16:31)
[2022-05-12] MEDS: CARVEDILOL 12.5 MG TAB PO SCH ×2 (10:05→16:25)
[2022-05-12] MEDS: SENNA-S TABLET PO SCH ×2 (10:06→16:24)
[2022-05-12] MEDS: LOSARTAN POTASSIUM 100 MG TAB PO SCH (10:06)
[2022-05-12] MEDS: MAGNESIUM HYDROXIDE 30 ML UDC PO PRN ×2 (10:06→16:24)
[2022-05-12] MEDS: MYRBETRIQ 50 MG PO SCH (10:17)
[2022-05-12] MEDS: DORZOLAMIDE/TIMOLOL (OPTH SOL) 10 ML DRPETTE OP SCH ×2 (10:18→16:31)
[2022-05-12] MEDS: INSULIN LISPRO 100 UNIT/1 ML 3ML VIAL SQ SCH ×4 (10:23→21:27)
[2022-05-12] MEDS: RIVAROXABAN 10 MG TABLET PO SCH (16:24)
[2022-05-12] MEDS: POLYETHYLENE GLYCOL 3350 17 GM PACK PO SCH (16:24)
[2022-05-12] MEDS: CELECOXIB 200 MG CAP PO SCH (16:24)
[2022-05-12] MEDS: HYDROCODONE/APAP 10MG-325MG TAB PO PRN ×2 (16:25→21:36)
[2022-05-12] MEDS: GABAPENTIN 300 MG CAP PO SCH ×2 (16:25→21:24)
[2022-05-12] MEDS: PRAVASTATIN 20 MG TAB PO SCH (21:24)
[2022-05-12] MEDS: INSULIN GLARGINE 100 UNITS/ML VIAL SQ SCH (21:27)
[2022-05-13] VITALS (13 sets, daily range): BP systolic 87–134; BP diastolic 38–84
[2022-05-13] MEDS: HYDROCODONE/APAP 10MG-325MG TAB PO PRN ×2 (04:03→15:12)
[2022-05-13 06:08] LABS: BASOPHILS % 0.1 % (0.0-1.0); EOSINOPHILS # (AUTO) 0.5 (0.0-0.4); EOSINOPHILS % 2.7 % (0.0-6.0); HEMATOCRIT 32.7 % (34.2-44.1); HEMOGLOBIN 10.4 g/dL (12.0-16.0); LYMPHOCYTES # (AUTO) 0.8 (1.0-3.2); LYMPHOCYTES % 4.2 % (18.0-39.1); MEAN CORPUSCULAR HEMOGLOBIN 30.2 pg (28-32); MEAN CORPUSCULAR HGB CONC 31.8 g/dL (31-35); MEAN CORPUSCULAR VOLUME 95.1 fL (81-99); MONOCYTES # (AUTO) 1.9 (0.2-0.8); MONOCYTES % 10.5 % (4.4-11.3); NEUTROPHILS # (AUTO) 15.1 (2.1-6.9); PLATELET COUNT 146 x10e3/uL (140-360); RED BLOOD COUNT 3.44 x10e6/uL (3.6-5.1); RED CELL DISTRIBUTION WIDTH 13.3 % (11.7-14.4)
[2022-05-13 06:36] LABS: ANION GAP 10.5 mmol/L (8-16); CALCIUM 7.3 mg/dL (8.4-10.2); CREATININE, SERUM 0.65 mg/dL (0.57-1.11); POTASSIUM 5.5 mmol/L (3.5-5.1)
[2022-05-13] MEDS ORDERED: PANTOPRAZOLE SOD 40 MG TABEC PO SCH (07:30)
[2022-05-13] MEDS: LOSARTAN POTASSIUM 100 MG TAB PO SCH (09:00)
[2022-05-13] MEDS: MYRBETRIQ 50 MG PO SCH ×2 (09:00→09:27)
[2022-05-13] MEDS ORDERED: ONDANSETRON HCL 4 MG ORAL DISINTEGRATING TAB PO PRN (09:00)
[2022-05-13] MEDS: CARVEDILOL 12.5 MG TAB PO SCH ×2 (09:00→17:00)
[2022-05-13] MEDS: CELECOXIB 200 MG CAP PO SCH ×2 (09:10→17:39)
[2022-05-13] MEDS: SENNA-S TABLET PO SCH ×2 (09:11→17:38)
[2022-05-13] MEDS: GABAPENTIN 300 MG CAP PO SCH ×2 (09:12→14:49)
[2022-05-13] MEDS: POLYETHYLENE GLYCOL 3350 17 GM PACK PO SCH ×2 (09:12→17:00)
[2022-05-13] MEDS: ASCORBIC ACID 500 MG TAB PO SCH ×3 (09:12→17:38)
[2022-05-13] MEDS: DORZOLAMIDE/TIMOLOL (OPTH SOL) 10 ML DRPETTE OP SCH ×2 (09:24→17:37)
[2022-05-13] MEDS: FLUTICASONE PROPIONATE NASAL SPRAY NS SCH ×2 (09:24→17:37)
[2022-05-13] MEDS: INSULIN LISPRO 100 UNIT/1 ML 3ML VIAL SQ SCH ×3 (09:25→17:40)
[2022-05-13 17:30] LABS: BASOPHILS % 0.1 % (0.0-1.0); EOSINOPHILS # (AUTO) 0.3 (0.0-0.4); EOSINOPHILS % 1.6 % (0.0-6.0); LYMPHOCYTES % 5.1 % (18.0-39.1); MEAN CORPUSCULAR HGB CONC 31.3 g/dL (31-35); MEAN CORPUSCULAR VOLUME 96.1 fL (81-99); MONOCYTES # (AUTO) 2.3 (0.2-0.8); MONOCYTES % 11.8 % (4.4-11.3); NEUTROPHILS # (AUTO) 15.5 (2.1-6.9); NEUTROPHILS % 80.7 % (38.7-80.0); PLATELET COUNT 168 x10e3/uL (140-360); RED BLOOD COUNT 3.33 x10e6/uL (3.6-5.1); RED CELL DISTRIBUTION WIDTH 13.5 % (11.7-14.4)
[2022-05-13] MEDS: RIVAROXABAN 10 MG TABLET PO SCH (17:38)
[2022-05-13 17:42] LABS: ANION GAP 12.9 mmol/L (8-16); CALCIUM 7.3 mg/dL (8.4-10.2); CREATININE, SERUM 0.75 mg/dL (0.57-1.11)
[2022-05-13 17:46] LABS: POTASSIUM 5.9 mmol/L (3.5-5.1)
[2022-05-13] MEDS ORDERED: SOD POLYSTYRENE SULFONATE SUSP 15 GM/60 ML BTL PO NR (20:00)
[2022-05-13] MEDS: SODIUM BICARBONATE 8.4% 100 ML in DEXTROSE 5% 1,000 ML IV SCH (20:05)
[2022-05-13] MEDS ORDERED: SODIUM CHLORIDE 0.9% 1000ML 1,000 ML IV ONE (21:15)
[2022-05-13] MEDS ORDERED: SODIUM CHLORIDE 0.9% 1000ML 0 ML ONE (21:33)
[2022-05-13 21:38] LABS: CLARITY,URINE CLEAR (CLEAR); COLOR,URINE YELLOW (YELLOW); KETONES,URINE NEGATIVE (NEGATIVE); LEUKOCYTE ESTERASE ,URINE NEGATIVE (NEGATIVE); NITRITE,URINE NEGATIVE (NEGATIVE); PROTEIN,URINE DIPSTICK NEGATIVE (NEGATIVE); URINE UROBILINOGEN 0.2 mg/dL (0.2 - 1)
[2022-05-13 21:43] LABS: BACTERIA,URINE RARE /HPF; EPITHELIAL CELLS,URINE FEW /LPF; RBC,URINE 0-5 /HPF (0-5); WBC,URINE (MAN) 0-5 /HPF (0-5)
[2022-05-13] MEDS ORDERED: SODIUM CHLORIDE 0.9% 1000ML 1,000 ML ONE (21:44)
[2022-05-13] MEDS ORDERED: ONDANSETRON HCL INJ 2MG/ML 2ML 2 MG/ML VIAL IV PRN (22:30)
[2022-05-14] VITALS (24 sets, daily range): BP systolic 70–142; BP diastolic 28–81
[2022-05-14] MEDS: INSULIN LISPRO 100 UNIT/1 ML 3ML VIAL SQ SCH ×5 (00:13→20:36)
[2022-05-14] MEDS: Vancomycin IV 1 GM in SODIUM CHLORIDE 0.9% 250ML 250 ML IV SCH ×2 (00:15→11:30)
[2022-05-14] MEDS ORDERED: SODIUM CHLORIDE 0.9% 250ML 250 ML ONE (00:15)
[2022-05-14] MEDS: INSULIN GLARGINE 100 UNITS/ML VIAL SQ SCH ×2 (00:15→20:35)
[2022-05-14] MEDS: Morphine 2mg Syringe 2 MG/ML SYR IV PRN ×2 (00:25→05:40)
[2022-05-14] MEDS ORDERED: IOPAMIDOL 370 MG/ML 100 ML INFUS..BTL INJ ONE (02:06)
[2022-05-14 04:58] LABS: BASOPHILS % 0.1 % (0.0-1.0); EOSINOPHILS # (AUTO) 0.6 (0.0-0.4); EOSINOPHILS % 3.1 % (0.0-6.0); HEMATOCRIT 32.7 % (34.2-44.1); HEMOGLOBIN 9.5 g/dL (12.0-16.0); LYMPHOCYTES # (AUTO) 0.7 (1.0-3.2); MEAN CORPUSCULAR HEMOGLOBIN 30.4 pg (28-32); MEAN CORPUSCULAR HGB CONC 29.1 g/dL (31-35); MEAN CORPUSCULAR VOLUME 104.5 fL (81-99); MONOCYTES # (AUTO) 1.9 (0.2-0.8); MONOCYTES % 10.3 % (4.4-11.3); NEUTROPHILS # (AUTO) 14.8 (2.1-6.9); NEUTROPHILS % 81.5 % (38.7-80.0); PLATELET COUNT 151 x10e3/uL (140-360); RED BLOOD COUNT 3.13 x10e6/uL (3.6-5.1); RED CELL DISTRIBUTION WIDTH 13.8 % (11.7-14.4)
[2022-05-14 05:23] LABS: ANION GAP 13.6 mmol/L (8-16); CREATININE, SERUM 0.68 mg/dL (0.57-1.11); POTASSIUM 5.6 mmol/L (3.5-5.1)
[2022-05-14] MEDS ORDERED: SOD POLYSTYRENE SULFONATE SUSP 15 GM/60 ML BTL PO ONE (08:30)
[2022-05-14] MEDS: ASCORBIC ACID 500 MG TAB PO SCH ×3 (08:44→17:03)
[2022-05-14] MEDS: CARVEDILOL 12.5 MG TAB PO SCH ×2 (08:46→16:47)
[2022-05-14] MEDS: POLYETHYLENE GLYCOL 3350 17 GM PACK PO SCH ×2 (08:54→16:49)
[2022-05-14] MEDS: SENNA-S TABLET PO SCH ×2 (08:55→16:49)
[2022-05-14] MEDS: FLUTICASONE PROPIONATE NASAL SPRAY NS SCH ×2 (09:26→17:02)
[2022-05-14] MEDS: DORZOLAMIDE/TIMOLOL (OPTH SOL) 10 ML DRPETTE OP SCH ×2 (09:26→17:02)
[2022-05-14] MEDS: SODIUM BICARBONATE 8.4% 100 ML in DEXTROSE 5% 1,000 ML IV SCH (10:34)
[2022-05-14] MEDS: HYDROCODONE/APAP 10MG-325MG TAB PO PRN (11:31)
[2022-05-14 12:13] LABS: ALBUMIN 1.8 g/dL (3.5-5.0); ALBUMIN/GLOBULIN RATIO 0.7 (0.8-2.0); ANION GAP 13.3 mmol/L (8-16); CREATININE, SERUM 0.66 mg/dL (0.57-1.11); POTASSIUM 5.3 mmol/L (3.5-5.1)
[2022-05-14] MEDS: SODIUM CHLORIDE 0.9% 1000ML 1,000 ML IV SCH ×2 (13:14→22:36)
[2022-05-14 16:47] LABS: AMYLASE 23 U/L (25-125); LIPASE 45 U/L (8-78)
[2022-05-14] MEDS: RIVAROXABAN 10 MG TABLET PO SCH (17:03)
[2022-05-14] MEDS: TRAMADOL HCL 50 MG TAB PO PRN (17:39)
[2022-05-14 18:03] LABS: ANION GAP 14.2 mmol/L (8-16); CALCIUM 7.2 mg/dL (8.4-10.2); CREATININE, SERUM 0.7 mg/dL (0.57-1.11); POTASSIUM 5.2 mmol/L (3.5-5.1)
[2022-05-14] MEDS: HYDROCODONE/APAP 5MG-325MG TAB PO PRN (18:37)
[2022-05-15] VITALS (20 sets, daily range): BP systolic 112–165; BP diastolic 45–133
[2022-05-15] MEDS: ACETAMINOPHEN 1000 MG/100 ML IV PRN ×3 (00:11→20:08)
[2022-05-15] MEDS: HYDROCODONE/APAP 5MG-325MG TAB PO PRN (02:34)
[2022-05-15 05:52] LABS: BASOPHILS % 0.1 % (0.0-1.0); EOSINOPHILS # (AUTO) 0.6 (0.0-0.4); EOSINOPHILS % 3.6 % (0.0-6.0); HEMATOCRIT 30.3 % (34.2-44.1); HEMOGLOBIN 9.5 g/dL (12.0-16.0); LYMPHOCYTES % 6.3 % (18.0-39.1); MEAN CORPUSCULAR HEMOGLOBIN 29.9 pg (28-32); MEAN CORPUSCULAR HGB CONC 31.4 g/dL (31-35); MEAN CORPUSCULAR VOLUME 95.3 fL (81-99); MONOCYTES # (AUTO) 1.2 (0.2-0.8); MONOCYTES % 7.8 % (4.4-11.3); NEUTROPHILS % 81.9 % (38.7-80.0); PLATELET COUNT 223 x10e3/uL (140-360); RED BLOOD COUNT 3.18 x10e6/uL (3.6-5.1); RED CELL DISTRIBUTION WIDTH 13.2 % (11.7-14.4)
[2022-05-15 06:12] LABS: ANION GAP 12.7 mmol/L (8-16); CALCIUM 7.2 mg/dL (8.4-10.2); CREATININE, SERUM 0.63 mg/dL (0.57-1.11); POTASSIUM 4.7 mmol/L (3.5-5.1)
[2022-05-15] MEDS: INSULIN LISPRO 100 UNIT/1 ML 3ML VIAL SQ SCH ×4 (07:49→20:23)
[2022-05-15] MEDS: ASCORBIC ACID 500 MG TAB PO SCH ×3 (07:56→16:52)
[2022-05-15] MEDS: CARVEDILOL 12.5 MG TAB PO SCH ×2 (08:59→16:52)
[2022-05-15] MEDS: POLYETHYLENE GLYCOL 3350 17 GM PACK PO SCH ×2 (09:00→16:49)
[2022-05-15] MEDS: SENNA-S TABLET PO SCH ×2 (09:00→16:49)
[2022-05-15] MEDS: FLUTICASONE PROPIONATE NASAL SPRAY NS SCH ×2 (09:01→16:53)
[2022-05-15] MEDS: DORZOLAMIDE/TIMOLOL (OPTH SOL) 10 ML DRPETTE OP SCH ×2 (09:01→16:52)
[2022-05-15] MEDS: SODIUM CHLORIDE 0.9% 1000ML 1,000 ML IV SCH (13:46)
[2022-05-15] MEDS: KETOROLAC TROMETHAMINE 30 MG/ML VIAL IM PRN ×2 (14:39→22:10)
[2022-05-15] MEDS: RIVAROXABAN 10 MG TABLET PO SCH (16:52)
[2022-05-15] MEDS: TRAMADOL HCL 50 MG TAB PO PRN (18:43)
[2022-05-15] MEDS: INSULIN GLARGINE 100 UNITS/ML VIAL SQ SCH (20:24)
[2022-05-16] VITALS (12 sets, daily range): BP systolic 107–164; BP diastolic 45–71
[2022-05-16] MEDS: SODIUM CHLORIDE 0.9% 1000ML 1,000 ML IV SCH (02:58)
[2022-05-16] MEDS: TRAMADOL HCL 50 MG TAB PO PRN ×2 (05:49→17:41)
[2022-05-16 07:07] LABS: BASOPHILS % 0.2 % (0.0-1.0); EOSINOPHILS # (AUTO) 0.4 (0.0-0.4); HEMATOCRIT 27.3 % (34.2-44.1); HEMOGLOBIN 8.9 g/dL (12.0-16.0); LYMPHOCYTES # (AUTO) 0.8 (1.0-3.2); LYMPHOCYTES % 6.4 % (18.0-39.1); MEAN CORPUSCULAR HEMOGLOBIN 30.1 pg (28-32); MEAN CORPUSCULAR HGB CONC 32.6 g/dL (31-35); MEAN CORPUSCULAR VOLUME 92.2 fL (81-99); MONOCYTES % 7.7 % (4.4-11.3); NEUTROPHILS # (AUTO) 10.7 (2.1-6.9); NEUTROPHILS % 81.9 % (38.7-80.0); PLATELET COUNT 239 x10e3/uL (140-360); RED BLOOD COUNT 2.96 x10e6/uL (3.6-5.1); RED CELL DISTRIBUTION WIDTH 13.7 % (11.7-14.4)
[2022-05-16] MEDS: INSULIN LISPRO 100 UNIT/1 ML 3ML VIAL SQ SCH ×4 (07:30→21:00)
[2022-05-16 07:54] LABS: ALBUMIN 1.7 g/dL (3.5-5.0); ALBUMIN/GLOBULIN RATIO 0.6 (0.8-2.0); ANION GAP 10.5 mmol/L (8-16); CALCIUM 7.1 mg/dL (8.4-10.2); CREATININE, SERUM 0.62 mg/dL (0.57-1.11); POTASSIUM 4.5 mmol/L (3.5-5.1)
[2022-05-16] MEDS: POLYETHYLENE GLYCOL 3350 17 GM PACK PO SCH ×2 (09:00→17:00)
[2022-05-16] MEDS: SENNA-S TABLET PO SCH ×2 (09:00→17:00)
[2022-05-16] MEDS: LIDOCAINE 4% PATCH TP SCH (09:20)
[2022-05-16] MEDS: CARVEDILOL 12.5 MG TAB PO SCH ×2 (09:26→17:00)
[2022-05-16] MEDS: ASCORBIC ACID 500 MG TAB PO SCH ×3 (09:26→17:00)
[2022-05-16] MEDS: FLUTICASONE PROPIONATE NASAL SPRAY NS SCH ×2 (09:27→17:00)
[2022-05-16] MEDS: DORZOLAMIDE/TIMOLOL (OPTH SOL) 10 ML DRPETTE OP SCH ×2 (09:27→17:00)
[2022-05-16] MEDS: KETOROLAC TROMETHAMINE 30 MG/ML VIAL IM PRN ×2 (09:39→21:51)
[2022-05-16] MEDS: ACETAMINOPHEN 325 MG TAB PO PRN (09:40)
[2022-05-16] MEDS: RIVAROXABAN 10 MG TABLET PO SCH (17:00)
[2022-05-16] MEDS: INSULIN GLARGINE 100 UNITS/ML VIAL SQ SCH (21:00)
[2022-05-16] MEDS ORDERED: SODIUM CHLORIDE 0.9% 250ML 250 ML ONE (21:14)
[2022-05-17] VITALS: BP 157/71
[2022-05-17 04:00] VITALS: BP 171/74
[2022-05-17] MEDS: HYDRALAZINE HCL 20 MG/ML VIAL IV PRN (06:39)
[2022-05-17] MEDS: INSULIN LISPRO 100 UNIT/1 ML 3ML VIAL SQ SCH ×4 (07:30→20:03)
[2022-05-17 08:03] VITALS: BP 164/66
[2022-05-17 08:15] LABS: EOSINOPHILS # (AUTO) 0.5 (0.0-0.4); EOSINOPHILS % 5.2 % (0.0-6.0); HEMATOCRIT 28.6 % (34.2-44.1); HEMOGLOBIN 8.9 g/dL (12.0-16.0); LYMPHOCYTES # (AUTO) 0.9 (1.0-3.2); LYMPHOCYTES % 8.9 % (18.0-39.1); MEAN CORPUSCULAR HEMOGLOBIN 30.4 pg (28-32); MEAN CORPUSCULAR HGB CONC 31.1 g/dL (31-35); MEAN CORPUSCULAR VOLUME 97.6 fL (81-99); MONOCYTES % 10.3 % (4.4-11.3); NEUTROPHILS # (AUTO) 7.3 (2.1-6.9); NEUTROPHILS % 75.1 % (38.7-80.0); PLATELET COUNT 252 x10e3/uL (140-360); RED BLOOD COUNT 2.93 x10e6/uL (3.6-5.1); RED CELL DISTRIBUTION WIDTH 13.6 % (11.7-14.4)
[2022-05-17 08:40] LABS: ALBUMIN 1.7 g/dL (3.5-5.0); ALBUMIN/GLOBULIN RATIO 0.6 (0.8-2.0); ANION GAP 9.8 mmol/L (8-16); CALCIUM 7.4 mg/dL (8.4-10.2); CREATININE, SERUM 0.61 mg/dL (0.57-1.11); POTASSIUM 4.8 mmol/L (3.5-5.1)
[2022-05-17] MEDS: SENNA-S TABLET PO SCH ×2 (08:51→16:43)
[2022-05-17] MEDS: ASCORBIC ACID 500 MG TAB PO SCH ×3 (08:51→16:43)
[2022-05-17] MEDS: CARVEDILOL 12.5 MG TAB PO SCH ×2 (08:51→16:42)
[2022-05-17] MEDS: SODIUM CHLORIDE 0.9% 1000ML 1,000 ML IV SCH (08:54)
[2022-05-17] MEDS: POLYETHYLENE GLYCOL 3350 17 GM PACK PO SCH ×2 (08:54→16:43)
[2022-05-17] MEDS: DORZOLAMIDE/TIMOLOL (OPTH SOL) 10 ML DRPETTE OP SCH ×2 (09:14→16:42)
[2022-05-17] MEDS: LIDOCAINE 4% PATCH TP SCH (09:14)
[2022-05-17] MEDS: FLUTICASONE PROPIONATE NASAL SPRAY NS SCH ×2 (09:14→16:42)
[2022-05-17] MEDS: TRAMADOL HCL 50 MG TAB PO PRN ×2 (11:30→18:23)
[2022-05-17] MEDS: FUROSEMIDE INJ 10 MG/ML 4 ML VIAL IV SCH ×2 (11:40→16:42)
[2022-05-17 11:55] VITALS: BP 152/57
[2022-05-17 16:16] VITALS: BP 150/61
[2022-05-17] MEDS: POTASSIUM CHLORIDE 10MEQ EA PO SCH (16:42)
[2022-05-17] MEDS: RIVAROXABAN 10 MG TABLET PO SCH (16:43)
[2022-05-17 20:00] VITALS: BP 141/57
[2022-05-17] MEDS: INSULIN GLARGINE 100 UNITS/ML VIAL SQ SCH (20:04)
[2022-05-17] MEDS: KETOROLAC TROMETHAMINE 30 MG/ML VIAL IM PRN (22:10)
[2022-05-18] VITALS (8 sets, daily range): BP systolic 115–174; BP diastolic 45–75
[2022-05-18] MEDS: HYDRALAZINE HCL 20 MG/ML VIAL IV PRN (01:55)
[2022-05-18] MEDS: DEXTROSE 50% SYRINGE 50 ML IV PRN ×2 (01:55→04:35)
[2022-05-18] MEDS ORDERED: FUROSEMIDE 40 MG TAB PO ONE (02:15)
[2022-05-18 06:40] LABS: BASOPHILS % 0.2 % (0.0-1.0); EOSINOPHILS # (AUTO) 0.1 (0.0-0.4); EOSINOPHILS % 0.5 % (0.0-6.0); HEMATOCRIT 35.3 % (34.2-44.1); HEMOGLOBIN 10.9 g/dL (12.0-16.0); LYMPHOCYTES # (AUTO) 1.1 (1.0-3.2); LYMPHOCYTES % 7.1 % (18.0-39.1); MEAN CORPUSCULAR HEMOGLOBIN 29.5 pg (28-32); MEAN CORPUSCULAR HGB CONC 30.9 g/dL (31-35); MEAN CORPUSCULAR VOLUME 95.7 fL (81-99); MONOCYTES # (AUTO) 1.6 (0.2-0.8); MONOCYTES % 9.9 % (4.4-11.3); NEUTROPHILS % 81.2 % (38.7-80.0); PLATELET COUNT 321 x10e3/uL (140-360); RED BLOOD COUNT 3.69 x10e6/uL (3.6-5.1); RED CELL DISTRIBUTION WIDTH 13.3 % (11.7-14.4)
[2022-05-18 07:20] LABS: ANION GAP 14.2 mmol/L (8-16); CALCIUM 8.2 mg/dL (8.4-10.2); CREATININE, SERUM 0.67 mg/dL (0.57-1.11); POTASSIUM 4.2 mmol/L (3.5-5.1)
[2022-05-18] MEDS: INSULIN LISPRO 100 UNIT/1 ML 3ML VIAL SQ SCH ×4 (07:30→21:22)
[2022-05-18] MEDS ORDERED: ONDANSETRON HCL 4 MG ORAL DISINTEGRATING TAB SL PRN (07:45)
[2022-05-18] MEDS: FLUTICASONE PROPIONATE NASAL SPRAY NS SCH ×2 (09:00→16:26)
[2022-05-18] MEDS: POLYETHYLENE GLYCOL 3350 17 GM PACK PO SCH ×2 (09:05→16:25)
[2022-05-18] MEDS: PANTOPRAZOLE SOD 40 MG TABEC PO SCH (09:07)
[2022-05-18] MEDS: ASCORBIC ACID 500 MG TAB PO SCH ×3 (09:07→16:27)
[2022-05-18] MEDS: FUROSEMIDE INJ 10 MG/ML 4 ML VIAL IV SCH ×2 (09:07→17:19)
[2022-05-18] MEDS: SENNA-S TABLET PO SCH ×2 (09:07→16:27)
[2022-05-18] MEDS: POTASSIUM CHLORIDE 10MEQ EA PO SCH ×2 (09:07→16:26)
[2022-05-18] MEDS: CARVEDILOL 12.5 MG TAB PO SCH ×2 (09:08→16:27)
[2022-05-18] MEDS: LIDOCAINE 4% PATCH TP SCH (09:08)
[2022-05-18] MEDS: DORZOLAMIDE/TIMOLOL (OPTH SOL) 10 ML DRPETTE OP SCH ×2 (09:10→16:26)
[2022-05-18] MEDS: TRAMADOL HCL 50 MG TAB PO PRN ×2 (10:08→17:20)
[2022-05-18] MEDS: KETOROLAC TROMETHAMINE 30 MG/ML VIAL IM PRN (12:24)
[2022-05-18] MEDS: RIVAROXABAN 10 MG TABLET PO SCH (16:27)
[2022-05-18] MEDS ORDERED: CELECOXIB 100 MG CAP PO ONE (20:30)
[2022-05-18] MEDS ORDERED: TRAMADOL HCL 50 MG TAB PO ONE (21:00)
[2022-05-18] MEDS: INSULIN GLARGINE 100 UNITS/ML VIAL SQ SCH (21:23)
[2022-05-19] VITALS (10 sets, daily range): BP systolic 91–159; BP diastolic 49–74
[2022-05-19] MEDS: TRAMADOL HCL 50 MG TAB PO PRN ×4 (03:17→22:35)
[2022-05-19 06:11] LABS: BASOPHILS % 0.3 % (0.0-1.0); EOSINOPHILS # (AUTO) 0.2 (0.0-0.4); EOSINOPHILS % 1.9 % (0.0-6.0); HEMATOCRIT 29.6 % (34.2-44.1); HEMOGLOBIN 9.8 g/dL (12.0-16.0); LYMPHOCYTES % 8.9 % (18.0-39.1); MEAN CORPUSCULAR HEMOGLOBIN 30.1 pg (28-32); MEAN CORPUSCULAR HGB CONC 33.1 g/dL (31-35); MEAN CORPUSCULAR VOLUME 90.8 fL (81-99); MONOCYTES # (AUTO) 1.2 (0.2-0.8); NEUTROPHILS % 77.9 % (38.7-80.0); PLATELET COUNT 295 x10e3/uL (140-360); RED BLOOD COUNT 3.26 x10e6/uL (3.6-5.1); RED CELL DISTRIBUTION WIDTH 13.7 % (11.7-14.4)
[2022-05-19 06:46] LABS: ANION GAP 12.7 mmol/L (8-16); CALCIUM 8.2 mg/dL (8.4-10.2); CREATININE, SERUM 0.72 mg/dL (0.57-1.11); POTASSIUM 4.7 mmol/L (3.5-5.1)
[2022-05-19] MEDS: INSULIN LISPRO 100 UNIT/1 ML 3ML VIAL SQ SCH ×4 (07:30→21:47)
[2022-05-19] MEDS: POLYETHYLENE GLYCOL 3350 17 GM PACK PO SCH ×2 (09:00→17:32)
[2022-05-19] MEDS: SENNA-S TABLET PO SCH ×3 (09:00→17:32)
[2022-05-19] MEDS: LIDOCAINE 4% PATCH TP SCH (10:20)
[2022-05-19] MEDS: CARVEDILOL 12.5 MG TAB PO SCH ×2 (10:21→17:32)
[2022-05-19] MEDS: CELECOXIB 100 MG CAP PO SCH ×2 (10:21→17:31)
[2022-05-19] MEDS: ASCORBIC ACID 500 MG TAB PO SCH ×3 (10:22→17:32)
[2022-05-19] MEDS: FUROSEMIDE INJ 10 MG/ML 2 ML VIAL IV SCH ×2 (10:22→17:31)
[2022-05-19] MEDS: PANTOPRAZOLE SOD 40 MG TABEC PO SCH (10:22)
[2022-05-19] MEDS: POTASSIUM CHLORIDE 10MEQ EA PO SCH ×2 (10:23→17:32)
[2022-05-19] MEDS: DORZOLAMIDE/TIMOLOL (OPTH SOL) 10 ML DRPETTE OP SCH ×2 (10:40→17:31)
[2022-05-19] MEDS: FLUTICASONE PROPIONATE NASAL SPRAY NS SCH ×2 (10:40→17:31)
[2022-05-19] MEDS: RIVAROXABAN 10 MG TABLET PO SCH (17:32)
[2022-05-19] MEDS: INSULIN GLARGINE 100 UNITS/ML VIAL SQ SCH (21:00)
[2022-05-20] VITALS (7 sets, daily range): BP systolic 111–156; BP diastolic 48–61
[2022-05-20 05:36] LABS: BASOPHILS % 0.1 % (0.0-1.0); EOSINOPHILS # (AUTO) 0.4 (0.0-0.4); EOSINOPHILS % 3.5 % (0.0-6.0); HEMATOCRIT 31.1 % (34.2-44.1); HEMOGLOBIN 9.7 g/dL (12.0-16.0); LYMPHOCYTES # (AUTO) 1.1 (1.0-3.2); LYMPHOCYTES % 11.5 % (18.0-39.1); MEAN CORPUSCULAR HEMOGLOBIN 29.8 pg (28-32); MEAN CORPUSCULAR HGB CONC 31.2 g/dL (31-35); MEAN CORPUSCULAR VOLUME 95.4 fL (81-99); MONOCYTES % 10.4 % (4.4-11.3); NEUTROPHILS # (AUTO) 7.2 (2.1-6.9); NEUTROPHILS % 73.5 % (38.7-80.0); PLATELET COUNT 287 x10e3/uL (140-360); RED BLOOD COUNT 3.26 x10e6/uL (3.6-5.1); RED CELL DISTRIBUTION WIDTH 13.5 % (11.7-14.4)
[2022-05-20 06:01] LABS: CALCIUM 8.7 mg/dL (8.4-10.2); CREATININE, SERUM 0.76 mg/dL (0.57-1.11)
[2022-05-20 06:02] LABS: PHOSPHORUS 3.9 MG/DL (2.3-4.7)
[2022-05-20] MEDS: TRAMADOL HCL 50 MG TAB PO PRN ×3 (07:22→18:51)
[2022-05-20] MEDS ORDERED: SOD POLYSTYRENE SULFONATE SUSP 15 GM/60 ML BTL PO ONE ×4 (08:30→15:30)
[2022-05-20] MEDS: PANTOPRAZOLE SOD 40 MG TABEC PO SCH (08:42)
[2022-05-20] MEDS: CELECOXIB 100 MG CAP PO SCH ×2 (08:42→17:09)
[2022-05-20] MEDS: POLYETHYLENE GLYCOL 3350 17 GM PACK PO SCH ×2 (08:45→17:09)
[2022-05-20] MEDS: CARVEDILOL 12.5 MG TAB PO SCH ×2 (08:45→17:07)
[2022-05-20] MEDS: SENNA-S TABLET PO SCH ×2 (08:45→17:07)
[2022-05-20] MEDS: ASCORBIC ACID 500 MG TAB PO SCH ×3 (08:45→17:07)
[2022-05-20] MEDS: DORZOLAMIDE/TIMOLOL (OPTH SOL) 10 ML DRPETTE OP SCH ×2 (08:45→17:09)
[2022-05-20] MEDS: FLUTICASONE PROPIONATE NASAL SPRAY NS SCH ×2 (08:45→17:09)
[2022-05-20] MEDS: FUROSEMIDE INJ 10 MG/ML 2 ML VIAL IV SCH (08:45)
[2022-05-20] MEDS: LIDOCAINE 4% PATCH TP SCH (08:46)
[2022-05-20] MEDS: POTASSIUM CHLORIDE 10MEQ EA PO SCH (08:50)
[2022-05-20] MEDS ORDERED: SODIUM BICARBONATE 650 MG TAB PO SCH (09:00)
[2022-05-20] MEDS: INSULIN LISPRO 100 UNIT/1 ML 3ML VIAL SQ SCH ×4 (11:34→21:40)
[2022-05-20] MEDS: CEFEPIME 2 GM in SODIUM CHLORIDE 0.9% 100 ML IV SCH (17:06)
[2022-05-20] MEDS: RIVAROXABAN 10 MG TABLET PO SCH (17:06)
[2022-05-20] MEDS: FUROSEMIDE 20 MG TAB PO SCH (17:08)
[2022-05-20] MEDS: Vancomycin IV 1 GM in SODIUM CHLORIDE 0.9% 250ML 250 ML IV SCH (17:16)
[2022-05-20] MEDS: INSULIN GLARGINE 100 UNITS/ML VIAL SQ SCH (21:38)
[2022-05-21] VITALS (8 sets, daily range): BP systolic 134–154; BP diastolic 54–84
[2022-05-21] MEDS: TRAMADOL HCL 50 MG TAB PO PRN (01:33)
[2022-05-21] MEDS: CEFEPIME 2 GM in SODIUM CHLORIDE 0.9% 100 ML IV SCH ×2 (03:56→16:00)
[2022-05-21] MEDS: Vancomycin IV 1 GM in SODIUM CHLORIDE 0.9% 250ML 250 ML IV SCH ×2 (05:21→17:11)
[2022-05-21] MEDS: FUROSEMIDE 20 MG TAB PO SCH ×2 (05:24→09:45)
[2022-05-21] MEDS: ACETAMINOPHEN 325 MG TAB PO PRN ×2 (06:13→17:58)
[2022-05-21 06:26] LABS: ANION GAP 12.2 mmol/L (8-16); CALCIUM 8.4 mg/dL (8.4-10.2); CREATININE, SERUM 0.66 mg/dL (0.57-1.11); POTASSIUM 4.2 mmol/L (3.5-5.1)
[2022-05-21] MEDS: INSULIN LISPRO 100 UNIT/1 ML 3ML VIAL SQ SCH ×4 (07:30→21:31)
[2022-05-21] MEDS: PANTOPRAZOLE SOD 40 MG TABEC PO SCH (07:30)
[2022-05-21] MEDS: CELECOXIB 100 MG CAP PO SCH ×2 (08:00→17:00)
[2022-05-21] MEDS: ASCORBIC ACID 500 MG TAB PO SCH ×3 (08:00→17:00)
[2022-05-21] MEDS: CARVEDILOL 12.5 MG TAB PO SCH ×2 (09:00→17:00)
[2022-05-21] MEDS: SENNA-S TABLET PO SCH ×2 (09:00→17:00)
[2022-05-21] MEDS: POLYETHYLENE GLYCOL 3350 17 GM PACK PO SCH ×2 (09:00→17:00)
[2022-05-21] MEDS: FLUTICASONE PROPIONATE NASAL SPRAY NS SCH ×2 (09:00→17:00)
[2022-05-21] MEDS: DORZOLAMIDE/TIMOLOL (OPTH SOL) 10 ML DRPETTE OP SCH ×2 (09:00→17:00)
[2022-05-21] MEDS: LIDOCAINE 4% PATCH TP SCH (09:00)
[2022-05-21] MEDS: RIVAROXABAN 10 MG TABLET PO SCH (17:00)
[2022-05-21] MEDS: INSULIN GLARGINE 100 UNITS/ML VIAL SQ SCH (21:35)
[2022-05-22] VITALS (7 sets, daily range): BP systolic 110–169; BP diastolic 50–60
[2022-05-22] MEDS: ACETAMINOPHEN 325 MG TAB PO PRN (03:46)
[2022-05-22] MEDS: CEFEPIME 2 GM in SODIUM CHLORIDE 0.9% 100 ML IV SCH ×2 (03:46→16:11)
[2022-05-22] MEDS: Vancomycin IV 1 GM in SODIUM CHLORIDE 0.9% 250ML 250 ML IV SCH ×2 (06:51→17:14)
[2022-05-22 07:20] LABS: ANION GAP 12.4 mmol/L (8-16); CALCIUM 8.4 mg/dL (8.4-10.2); CREATININE, SERUM 0.77 mg/dL (0.57-1.11); POTASSIUM 3.4 mmol/L (3.5-5.1)
[2022-05-22] MEDS: SENNA-S TABLET PO SCH ×2 (09:25→17:00)
[2022-05-22] MEDS: CELECOXIB 100 MG CAP PO SCH ×2 (09:25→17:05)
[2022-05-22] MEDS: ASCORBIC ACID 500 MG TAB PO SCH ×3 (09:25→17:05)
[2022-05-22] MEDS: POLYETHYLENE GLYCOL 3350 17 GM PACK PO SCH ×2 (09:25→17:00)
[2022-05-22] MEDS: PANTOPRAZOLE SOD 40 MG TABEC PO SCH (09:25)
[2022-05-22] MEDS: FUROSEMIDE 20 MG TAB PO SCH (09:26)
[2022-05-22] MEDS: CARVEDILOL 12.5 MG TAB PO SCH ×2 (09:26→17:06)
[2022-05-22] MEDS: LIDOCAINE 4% PATCH TP SCH (09:27)
[2022-05-22] MEDS: DORZOLAMIDE/TIMOLOL (OPTH SOL) 10 ML DRPETTE OP SCH ×2 (09:27→17:06)
[2022-05-22] MEDS: FLUTICASONE PROPIONATE NASAL SPRAY NS SCH ×2 (09:27→17:06)
[2022-05-22] MEDS: INSULIN LISPRO 100 UNIT/1 ML 3ML VIAL SQ SCH ×4 (09:31→21:45)
[2022-05-22] MEDS: RIVAROXABAN 10 MG TABLET PO SCH (17:05)
[2022-05-22] MEDS: INSULIN GLARGINE 100 UNITS/ML VIAL SQ SCH (21:39)
[2022-05-23] VITALS (8 sets, daily range): BP systolic 123–165; BP diastolic 45–76
[2022-05-23] MEDS: CEFEPIME 2 GM in SODIUM CHLORIDE 0.9% 100 ML IV SCH ×2 (03:24→16:50)
[2022-05-23] MEDS: Vancomycin IV 1 GM in SODIUM CHLORIDE 0.9% 250ML 250 ML IV SCH ×2 (05:03→18:10)
[2022-05-23] MEDS: PANTOPRAZOLE SOD 40 MG TABEC PO SCH (08:35)
[2022-05-23] MEDS: DORZOLAMIDE/TIMOLOL (OPTH SOL) 10 ML DRPETTE OP SCH ×2 (08:35→16:52)
[2022-05-23] MEDS: SENNA-S TABLET PO SCH ×2 (08:35→16:51)
[2022-05-23] MEDS: FUROSEMIDE 20 MG TAB PO SCH (08:35)
[2022-05-23] MEDS: FLUTICASONE PROPIONATE NASAL SPRAY NS SCH ×2 (08:35→16:53)
[2022-05-23] MEDS: ASCORBIC ACID 500 MG TAB PO SCH ×3 (08:35→16:50)
[2022-05-23] MEDS: POLYETHYLENE GLYCOL 3350 17 GM PACK PO SCH ×2 (08:36→16:55)
[2022-05-23] MEDS: CARVEDILOL 12.5 MG TAB PO SCH ×2 (08:36→16:51)
[2022-05-23] MEDS: LIDOCAINE 4% PATCH TP SCH (08:37)
[2022-05-23] MEDS: INSULIN LISPRO 100 UNIT/1 ML 3ML VIAL SQ SCH ×4 (08:38→20:27)
[2022-05-23] MEDS: CELECOXIB 100 MG CAP PO SCH ×2 (08:43→16:50)
[2022-05-23] MEDS: RIVAROXABAN 10 MG TABLET PO SCH (16:51)
[2022-05-23] MEDS: INSULIN GLARGINE 100 UNITS/ML VIAL SQ SCH (20:26)
[2022-05-24] VITALS (8 sets, daily range): BP systolic 145–157; BP diastolic 58–69
[2022-05-24] MEDS: CEFEPIME 2 GM in SODIUM CHLORIDE 0.9% 100 ML IV SCH ×2 (04:50→15:33)
[2022-05-24 06:27] LABS: BASOPHILS % 0.4 % (0.0-1.0); EOSINOPHILS # (AUTO) 0.4 (0.0-0.4); EOSINOPHILS % 5.9 % (0.0-6.0); HEMATOCRIT 32.1 % (34.2-44.1); HEMOGLOBIN 10.2 g/dL (12.0-16.0); LYMPHOCYTES % 13.9 % (18.0-39.1); MEAN CORPUSCULAR HEMOGLOBIN 30.3 pg (28-32); MEAN CORPUSCULAR HGB CONC 31.8 g/dL (31-35); MEAN CORPUSCULAR VOLUME 95.3 fL (81-99); MONOCYTES # (AUTO) 0.7 (0.2-0.8); MONOCYTES % 10.7 % (4.4-11.3); NEUTROPHILS # (AUTO) 4.7 (2.1-6.9); NEUTROPHILS % 68.4 % (38.7-80.0); PLATELET COUNT 219 x10e3/uL (140-360); RED BLOOD COUNT 3.37 x10e6/uL (3.6-5.1); RED CELL DISTRIBUTION WIDTH 14.4 % (11.7-14.4)
[2022-05-24 06:52] LABS: ANION GAP 12.6 mmol/L (8-16); CALCIUM 8.2 mg/dL (8.4-10.2); CREATININE, SERUM 0.65 mg/dL (0.57-1.11); POTASSIUM 3.6 mmol/L (3.5-5.1)
[2022-05-24] MEDS: Vancomycin IV 1 GM in SODIUM CHLORIDE 0.9% 250ML 250 ML IV SCH (07:29)
[2022-05-24] MEDS: INSULIN LISPRO 100 UNIT/1 ML 3ML VIAL SQ SCH ×4 (08:30→20:23)
[2022-05-24] MEDS: CELECOXIB 100 MG CAP PO SCH ×2 (08:51→16:37)
[2022-05-24] MEDS: FLUTICASONE PROPIONATE NASAL SPRAY NS SCH ×2 (08:51→16:37)
[2022-05-24] MEDS: FUROSEMIDE 20 MG TAB PO SCH (08:51)
[2022-05-24] MEDS: POLYETHYLENE GLYCOL 3350 17 GM PACK PO SCH ×2 (08:51→16:27)
[2022-05-24] MEDS: ASCORBIC ACID 500 MG TAB PO SCH ×3 (08:51→16:38)
[2022-05-24] MEDS: PANTOPRAZOLE SOD 40 MG TABEC PO SCH (08:51)
[2022-05-24] MEDS: DORZOLAMIDE/TIMOLOL (OPTH SOL) 10 ML DRPETTE OP SCH ×2 (08:51→16:37)
[2022-05-24] MEDS: SENNA-S TABLET PO SCH ×2 (08:52→16:27)
[2022-05-24] MEDS: LIDOCAINE 4% PATCH TP SCH (08:52)
[2022-05-24] MEDS: CARVEDILOL 12.5 MG TAB PO SCH ×2 (08:54→16:38)
[2022-05-24] MEDS ORDERED: Vancomycin IV 1.5 GM in SODIUM CHLORIDE 0.9% 250ML 300 ML IV ONE (11:00)
[2022-05-24] MEDS: RIVAROXABAN 10 MG TABLET PO SCH (16:38)
[2022-05-24] MEDS: INSULIN GLARGINE 100 UNITS/ML VIAL SQ SCH (20:23)
[2022-05-25] VITALS (8 sets, daily range): BP systolic 123–151; BP diastolic 57–72
[2022-05-25] MEDS: CEFEPIME 2 GM in SODIUM CHLORIDE 0.9% 100 ML IV SCH ×2 (03:55→16:57)
[2022-05-25] MEDS: CELECOXIB 100 MG CAP PO SCH ×2 (09:01→16:58)
[2022-05-25] MEDS: POLYETHYLENE GLYCOL 3350 17 GM PACK PO SCH ×2 (09:01→16:58)
[2022-05-25] MEDS: CARVEDILOL 12.5 MG TAB PO SCH ×2 (09:02→16:58)
[2022-05-25] MEDS: PANTOPRAZOLE SOD 40 MG TABEC PO SCH (09:02)
[2022-05-25] MEDS: ASCORBIC ACID 500 MG TAB PO SCH ×3 (09:02→16:58)
[2022-05-25] MEDS: FLUTICASONE PROPIONATE NASAL SPRAY NS SCH ×2 (09:02→16:58)
[2022-05-25] MEDS: FUROSEMIDE 20 MG TAB PO SCH (09:02)
[2022-05-25] MEDS: SENNA-S TABLET PO SCH ×2 (09:02→16:58)
[2022-05-25] MEDS: LIDOCAINE 4% PATCH TP SCH (09:03)
[2022-05-25] MEDS: DORZOLAMIDE/TIMOLOL (OPTH SOL) 10 ML DRPETTE OP SCH ×2 (09:03→16:58)
[2022-05-25] MEDS: INSULIN LISPRO 100 UNIT/1 ML 3ML VIAL SQ SCH ×4 (09:13→20:43)
[2022-05-25] MEDS: RIVAROXABAN 10 MG TABLET PO SCH (16:58)
[2022-05-25] MEDS: INSULIN GLARGINE 100 UNITS/ML VIAL SQ SCH (20:44)
[2022-05-26] VITALS (8 sets, daily range): BP systolic 106–144; BP diastolic 51–87
[2022-05-26] MEDS: CEFEPIME 2 GM in SODIUM CHLORIDE 0.9% 100 ML IV SCH ×2 (03:48→16:59)
[2022-05-26 05:41] LABS: BASOPHILS % 0.3 % (0.0-1.0); EOSINOPHILS # (AUTO) 0.4 (0.0-0.4); EOSINOPHILS % 5.7 % (0.0-6.0); HEMATOCRIT 33.5 % (34.2-44.1); HEMOGLOBIN 10.7 g/dL (12.0-16.0); LYMPHOCYTES # (AUTO) 0.9 (1.0-3.2); LYMPHOCYTES % 12.4 % (18.0-39.1); MEAN CORPUSCULAR HEMOGLOBIN 30.5 pg (28-32); MEAN CORPUSCULAR HGB CONC 31.9 g/dL (31-35); MEAN CORPUSCULAR VOLUME 95.4 fL (81-99); MONOCYTES # (AUTO) 0.8 (0.2-0.8); MONOCYTES % 10.5 % (4.4-11.3); NEUTROPHILS # (AUTO) 5.3 (2.1-6.9); NEUTROPHILS % 70.8 % (38.7-80.0); PLATELET COUNT 214 x10e3/uL (140-360); RED BLOOD COUNT 3.51 x10e6/uL (3.6-5.1); RED CELL DISTRIBUTION WIDTH 14.6 % (11.7-14.4)
[2022-05-26 06:07] LABS: ANION GAP 12.1 mmol/L (8-16); CALCIUM 8.1 mg/dL (8.4-10.2); CREATININE, SERUM 0.66 mg/dL (0.57-1.11); POTASSIUM 4.1 mmol/L (3.5-5.1)
[2022-05-26] MEDS: POLYETHYLENE GLYCOL 3350 17 GM PACK PO SCH ×2 (09:24→17:00)
[2022-05-26] MEDS: LIDOCAINE 4% PATCH TP SCH (09:24)
[2022-05-26] MEDS: FUROSEMIDE 20 MG TAB PO SCH (09:24)
[2022-05-26] MEDS: ASCORBIC ACID 500 MG TAB PO SCH ×3 (09:24→17:00)
[2022-05-26] MEDS: PANTOPRAZOLE SOD 40 MG TABEC PO SCH (09:24)
[2022-05-26] MEDS: SENNA-S TABLET PO SCH ×2 (09:24→17:00)
[2022-05-26] MEDS: CELECOXIB 100 MG CAP PO SCH ×2 (09:24→17:00)
[2022-05-26] MEDS: FLUTICASONE PROPIONATE NASAL SPRAY NS SCH ×2 (09:25→16:59)
[2022-05-26] MEDS: CARVEDILOL 12.5 MG TAB PO SCH ×2 (09:25→17:01)
[2022-05-26] MEDS: DORZOLAMIDE/TIMOLOL (OPTH SOL) 10 ML DRPETTE OP SCH ×2 (09:25→17:00)
[2022-05-26] MEDS: INSULIN LISPRO 100 UNIT/1 ML 3ML VIAL SQ SCH ×4 (10:08→20:52)
[2022-05-26] MEDS: Vancomycin IV 1.5 GM in SODIUM CHLORIDE 0.9% 250ML 300 ML IV SCH (13:48)
[2022-05-26] MEDS: RIVAROXABAN 10 MG TABLET PO SCH (17:00)
[2022-05-26] MEDS: INSULIN GLARGINE 100 UNITS/ML VIAL SQ SCH (20:52)
[2022-05-27] VITALS (7 sets, daily range): BP systolic 104–143; BP diastolic 48–92
[2022-05-27] MEDS: CEFEPIME 2 GM in SODIUM CHLORIDE 0.9% 100 ML IV SCH ×2 (04:24→16:49)
[2022-05-27] MEDS: CELECOXIB 100 MG CAP PO SCH ×2 (08:57→16:52)
[2022-05-27] MEDS: PANTOPRAZOLE SOD 40 MG TABEC PO SCH (08:58)
[2022-05-27] MEDS: DORZOLAMIDE/TIMOLOL (OPTH SOL) 10 ML DRPETTE OP SCH ×2 (08:58→16:51)
[2022-05-27] MEDS: FUROSEMIDE 20 MG TAB PO SCH (08:58)
[2022-05-27] MEDS: SENNA-S TABLET PO SCH ×2 (08:58→16:49)
[2022-05-27] MEDS: ASCORBIC ACID 500 MG TAB PO SCH ×3 (08:58→16:49)
[2022-05-27] MEDS: FLUTICASONE PROPIONATE NASAL SPRAY NS SCH ×2 (08:58→16:50)
[2022-05-27] MEDS: CARVEDILOL 12.5 MG TAB PO SCH ×2 (08:58→16:49)
[2022-05-27] MEDS: Vancomycin IV 1.5 GM in SODIUM CHLORIDE 0.9% 250ML 300 ML IV SCH (08:59)
[2022-05-27] MEDS: POLYETHYLENE GLYCOL 3350 17 GM PACK PO SCH ×2 (09:00→16:49)
[2022-05-27] MEDS: INSULIN LISPRO 100 UNIT/1 ML 3ML VIAL SQ SCH ×4 (09:01→21:15)
[2022-05-27] MEDS: LIDOCAINE 4% PATCH TP SCH (09:10)
[2022-05-27] MEDS: ACETAMINOPHEN 325 MG TAB PO PRN (11:34)
[2022-05-27] MEDS: RIVAROXABAN 10 MG TABLET PO SCH (16:49)
[2022-05-27] MEDS: INSULIN GLARGINE 100 UNITS/ML VIAL SQ SCH (21:16)
[2022-05-28] VITALS: BP 145/52
[2022-05-28 04:00] VITALS: BP 146/59
[2022-05-28] MEDS: CEFEPIME 2 GM in SODIUM CHLORIDE 0.9% 100 ML IV SCH (04:39)
[2022-05-28 08:16] VITALS: BP 168/69
[2022-05-28] MEDS: LIDOCAINE 4% PATCH TP SCH (08:35)
[2022-05-28] MEDS: CELECOXIB 100 MG CAP PO SCH (08:35)
[2022-05-28] MEDS: SENNA-S TABLET PO SCH (08:35)
[2022-05-28] MEDS: CARVEDILOL 12.5 MG TAB PO SCH (08:36)
[2022-05-28] MEDS: PANTOPRAZOLE SOD 40 MG TABEC PO SCH (08:36)
[2022-05-28] MEDS: POLYETHYLENE GLYCOL 3350 17 GM PACK PO SCH (08:37)
[2022-05-28] MEDS: DORZOLAMIDE/TIMOLOL (OPTH SOL) 10 ML DRPETTE OP SCH (08:37)
[2022-05-28] MEDS: FUROSEMIDE 20 MG TAB PO SCH (08:37)
[2022-05-28] MEDS: ASCORBIC ACID 500 MG TAB PO SCH (08:37)
[2022-05-28] MEDS: FLUTICASONE PROPIONATE NASAL SPRAY NS SCH (08:38)
[2022-05-28] MEDS: INSULIN LISPRO 100 UNIT/1 ML 3ML VIAL SQ SCH (08:45)
[2022-05-28] MEDS: ACETAMINOPHEN 325 MG TAB PO PRN (10:46)
[2022-05-28 11:47] VITALS: BP 113/62
== END 2022-05-28 12:38 | DRG 521 ==
LOC: ER 07:47 → ERHOLD 11:11 → MED/SURG3 15:19 → ICU 05-13 21:56 → MED/SURG3 05-16 15:55
PROVIDERS: ADMIT Internal Medicine; ATTEND Internal Medicine
PROC: 0SRS019 Replacement of Left Hip Joint, Femoral Surface with Metal Synthetic Substitute, Cemented, Open Approach (ICD-10-PCS; principal; 2022-05-10 08:17)
DX: S72.142A Displaced intertrochanteric fracture of left femur, initial encounter for closed fracture (principal); G93.41 Metabolic encephalopathy; N17.0 Acute kidney failure with tubular necrosis; N39.0 Urinary tract infection, site not specified; N30.00 Acute cystitis without hematuria; B96.20 Unspecified Escherichia coli [E. coli] as the cause of diseases classified elsewhere; D64.9 Anemia, unspecified; N25.89 Other disorders resulting from impaired renal tubular function; E11.65 Type 2 diabetes mellitus with hyperglycemia; I50.9 Heart failure, unspecified; I11.0 Hypertensive heart disease with heart failure; E66.9 Obesity, unspecified; I25.10 Atherosclerotic heart disease of native coronary artery without angina pectoris; K59.00 Constipation, unspecified; R62.7 Adult failure to thrive; Z68.25 Body mass index [BMI] 25.0-25.9, adult; E87.5 Hyperkalemia; W01.0XXA Fall on same level from slipping, tripping and stumbling without subsequent striking against object, initial encounter; Y93.89 Activity, other specified; Y92.019 Unspecified place in single-family (private) house as the place of occurrence of the external cause; I25.2 Old myocardial infarction; Z87.440 Personal history of urinary (tract) infections; Z88.5 Allergy status to narcotic agent; Z98.61 Coronary angioplasty status; Z90.49 Acquired absence of other specified parts of digestive tract; Z82.49 Family history of ischemic heart disease and other diseases of the circulatory system; E87.6 Hypokalemia; Z20.822 Contact with and (suspected) exposure to COVID-19; Z79.82 Long term (current) use of aspirin; Z79.84 Long term (current) use of oral hypoglycemic drugs
CPT/HCPCS: 0223U; 36415; 51700; 70450; 71045; 72125; 72170; 74177; 74230; 80048; 80053; 80202; 81001; 82150; 82550; 82553; 82948; 83036; 83605; 83690; 83735; 83880; 84100; 84443; 84484; 85014; 85018; 85025; 85610; 85730; 86850; 86900; 87040; 87086; 87186; 93005; 93306; 94799; 96372; 99251; 99284; C1713; C1776; J0171; J0360; J0690; J0692; J0696; J1100; J1815; J1817; J1885; J1940; J2270; J2370; J2405; J2543; J2710; J2795; J3010; J3370; J7030; J7040; J7050; J7070; J7799; Q9967

== ENCOUNTER 2022-10-19 09:31 | Inpatient (IN) | payer MEDICARE ==
[~2022-10-19] VITALS: Ht 160 cm; Wt 64.4 kg
[~2022-10-19 09:31] MED LIST changes: +CARVEDILOL25 MG PO; +FLONASE ALLERG9.9 ML INH; +LOSARTAN POTAS100 MG PO; +MYRBETRIQ50 MG PO; +ULTRAM50 MG PO
[2022-10-19] MEDS ORDERED: SODIUM CHLORIDE 0.9% 1000ML 1,000 ML IV STA (09:49)
[2022-10-19] MEDS ORDERED: MEROPENEM 1 GM in SODIUM CHLORIDE 0.9% 100 ML IV ONE (10:00)
[2022-10-19 10:04] LABS: BASOPHILS # (AUTO) 0.1 (0.0-0.1); BASOPHILS % 0.6 % (0.0-1.0); EOSINOPHILS # (AUTO) 0.5 (0.0-0.4); EOSINOPHILS % 4.4 % (0.0-6.0); HEMATOCRIT 35.1 % (34.2-44.1); HEMOGLOBIN 10.4 g/dL (12.0-16.0); LYMPHOCYTES # (AUTO) 1.5 (1.0-3.2); LYMPHOCYTES % 13.7 % (18.0-39.1); MEAN CORPUSCULAR HEMOGLOBIN 28.7 pg (28-32); MEAN CORPUSCULAR HGB CONC 29.6 g/dL (31-35); MEAN CORPUSCULAR VOLUME 96.7 fL (81-99); NEUTROPHILS # (AUTO) 7.7 (2.1-6.9); PLATELET COUNT 366 x10e3/uL (140-360); RED BLOOD COUNT 3.63 x10e6/uL (3.6-5.1); RED CELL DISTRIBUTION WIDTH 15.3 % (11.7-14.4)
[2022-10-19 10:26] LABS: ALANINE AMINOTRANSFERASE 6 IU/L (0-55); ALBUMIN 2.1 g/dL (3.5-5.0); ALBUMIN/GLOBULIN RATIO 0.6 (0.8-2.0); ALKALINE PHOSPHATASE 99 IU/L (40-150); ANION GAP 11.8 mmol/L (8-16); BLOOD UREA NITROGEN 25 mg/dL (7-26); BUN/CREATININE RATIO 23 (6-25); CALCIUM 8.9 mg/dL (8.4-10.2); CARBON DIOXIDE 32 mmol/L (22-29); CHLORIDE 100 mmol/L (98-107); CREATININE, SERUM 1.11 mg/dL (0.57-1.11); GLUCOSE 180 mg/dL (74-118); MAGNESIUM 1.9 MG/DL (1.3-2.1); POTASSIUM 4.8 mmol/L (3.5-5.1); SODIUM 139 mmol/L (136-145)
[2022-10-19 10:32] LABS: INR 2.13
[2022-10-19 10:33] LABS: CREATINE KINASE < 7 IU/L (29-168); PARTIAL THROMBOPLASTIN TIME 38.3 seconds (23.8-35.5)
[2022-10-19 11:43] LABS: CLARITY,URINE TURBID (CLEAR); COLOR,URINE YELLOW (YELLOW); KETONES,URINE TRACE (NEGATIVE); LEUKOCYTE ESTERASE ,URINE LARGE (NEGATIVE); NITRITE,URINE NEGATIVE (NEGATIVE); PROTEIN,URINE DIPSTICK TRACE (NEGATIVE)
[2022-10-19 11:44] LABS: BACTERIA,URINE MANY /HPF; EPITHELIAL CELLS,URINE FEW /LPF; RBC,URINE >50 /HPF (0-5); URINE UROBILINOGEN 0.2 mg/dL (0.2 - 1); WBC,URINE (MAN) >50 /HPF (0-5)
[2022-10-19] MEDS ORDERED: IOPAMIDOL 370 MG/ML 100 ML INFUS..BTL INJ ONE (12:25)
[2022-10-19] MEDS ORDERED: ONDANSETRON HCL INJ 2MG/ML 2ML 2 MG/ML VIAL IV PRN (12:45)
[2022-10-19] MEDS: SODIUM CHLORIDE 0.9% 1000ML 1,000 ML IV SCH ×2 (13:40→22:40)
[2022-10-19] MEDS ORDERED: FUROSEMIDE INJ 10 MG/ML 2 ML VIAL IV ONE (15:45)
[2022-10-19 16:33] LABS: CREATINE KINASE MB 0.5 ng/mL (0-5.0)
[2022-10-19] MEDS ORDERED: ENOXAPARIN SOD INJ 40 MG/0.4 ML SYR SC SCH (17:00)
[2022-10-19] MEDS: GABAPENTIN 100 MG CAP PO SCH (17:00)
[2022-10-19] MEDS: ASCORBIC ACID 500 MG TAB PO SCH (17:00)
[2022-10-19] MEDS: DORZOLAMIDE/TIMOLOL (OPTH SOL) 10 ML DRPETTE OP SCH (19:03)
[2022-10-19] MEDS ORDERED: ACETAMINOPHEN 1000 MG/100 ML IV ONE (19:43)
[2022-10-19] MEDS: ALBUTEROL/IPRATROPIUM 3 ML NEB NEB SCH (19:50)
[2022-10-19 20:00] VITALS: BP 132/70
[2022-10-19] MEDS ORDERED: ACETAMINOPHEN 1000 MG/100 ML 100 ML IV ONE (20:01)
[2022-10-19 20:52] VITALS: BP 138/46
[2022-10-19] MEDS: PRAVASTATIN 20 MG TAB PO SCH (21:00)
[2022-10-19] MEDS: ASPIRIN 81 MG ENTERIC COATED PO SCH (21:00)
[2022-10-19] MEDS: MEROPENEM 1 GM in SODIUM CHLORIDE 0.9% 100 ML IV SCH (22:40)
[2022-10-19] MEDS ORDERED: BISACODYL 10 MG SUPP PR ONE (23:30)
[2022-10-19 23:35] LABS: CREATINE KINASE < 7 IU/L (29-168)
[2022-10-20] VITALS (7 sets, daily range): BP systolic 125–143; BP diastolic 51–59
[2022-10-20] MEDS: ALBUTEROL/IPRATROPIUM 3 ML NEB NEB SCH ×4 (01:00→19:05)
[2022-10-20 06:18] LABS: BASOPHILS # (AUTO) 0.1 (0.0-0.1); BASOPHILS % 0.4 % (0.0-1.0); EOSINOPHILS # (AUTO) 0.1 (0.0-0.4); EOSINOPHILS % 1.2 % (0.0-6.0); HEMATOCRIT 35.6 % (34.2-44.1); HEMOGLOBIN 10.4 g/dL (12.0-16.0); LYMPHOCYTES # (AUTO) 1.3 (1.0-3.2); LYMPHOCYTES % 11.4 % (18.0-39.1); MEAN CORPUSCULAR HEMOGLOBIN 28.3 pg (28-32); MEAN CORPUSCULAR HGB CONC 29.2 g/dL (31-35); MEAN CORPUSCULAR VOLUME 96.7 fL (81-99); MONOCYTES # (AUTO) 0.6 (0.2-0.8); MONOCYTES % 5.7 % (4.4-11.3); NEUTROPHILS # (AUTO) 9.1 (2.1-6.9); NEUTROPHILS % 80.4 % (38.7-80.0); PLATELET COUNT 370 x10e3/uL (140-360); RED BLOOD COUNT 3.68 x10e6/uL (3.6-5.1); RED CELL DISTRIBUTION WIDTH 15.3 % (11.7-14.4)
[2022-10-20 06:39] LABS: ALBUMIN 2.3 g/dL (3.5-5.0); ALBUMIN/GLOBULIN RATIO 0.6 (0.8-2.0); ANION GAP 13.6 mmol/L (8-16); CREATININE, SERUM 0.88 mg/dL (0.57-1.11); POTASSIUM 4.6 mmol/L (3.5-5.1)
[2022-10-20 06:53] LABS: % IRON SATURATION 26 % (15-50); IRON 67 ug/dL (50-170); TOTAL IRON BINDING CAPACITY 259 ug/dL (261-478); TRANSFERRIN 185 mg/dL (180-382)
[2022-10-20 07:07] LABS: CREATINE KINASE MB 0.6 ng/mL (0-5.0)
[2022-10-20] MEDS ORDERED: FUROSEMIDE INJ 10 MG/ML 2 ML VIAL IV ONE ×2 (09:00→15:00)
[2022-10-20] MEDS ORDERED: LOSARTAN POTASSIUM 100 MG TAB PO SCH (09:00)
[2022-10-20] MEDS: MEROPENEM 1 GM in SODIUM CHLORIDE 0.9% 100 ML IV SCH ×2 (09:37→21:40)
[2022-10-20] MEDS: DORZOLAMIDE/TIMOLOL (OPTH SOL) 10 ML DRPETTE OP SCH ×2 (09:42→17:22)
[2022-10-20] MEDS ORDERED: DEXTROSE 50% SYRINGE 50 ML IV PRN (10:00)
[2022-10-20] MEDS ORDERED: ONDANSETRON HCL 4 MG ORAL DISINTEGRATING TAB PO PRN (10:00)
[2022-10-20] MEDS ORDERED: HYDRALAZINE HCL 20 MG/ML VIAL IV PRN (10:15)
[2022-10-20] MEDS: GABAPENTIN 100 MG CAP PO SCH ×2 (11:27→17:12)
[2022-10-20] MEDS: ASCORBIC ACID 500 MG TAB PO SCH ×3 (11:28→17:12)
[2022-10-20] MEDS: INSULIN LISPRO 100 UNIT/1 ML 3ML VIAL SQ SCH ×3 (12:28→21:00)
[2022-10-20] MEDS: ASPIRIN 81 MG ENTERIC COATED PO SCH (21:41)
[2022-10-20] MEDS: PRAVASTATIN 20 MG TAB PO SCH (21:41)
[2022-10-21] VITALS (8 sets, daily range): BP systolic 118–160; BP diastolic 46–58
[2022-10-21] MEDS: ALBUTEROL/IPRATROPIUM 3 ML NEB NEB SCH ×4 (01:45→20:15)
[2022-10-21 06:08] LABS: INR 1.16
[2022-10-21] MEDS: GABAPENTIN 100 MG CAP PO SCH ×2 (08:29→17:03)
[2022-10-21] MEDS: FUROSEMIDE 20 MG TAB PO SCH (08:29)
[2022-10-21] MEDS: MEROPENEM 1 GM in SODIUM CHLORIDE 0.9% 100 ML IV SCH (08:29)
[2022-10-21] MEDS: ASCORBIC ACID 500 MG TAB PO SCH ×3 (08:29→17:03)
[2022-10-21] MEDS: DORZOLAMIDE/TIMOLOL (OPTH SOL) 10 ML DRPETTE OP SCH ×2 (08:30→17:05)
[2022-10-21] MEDS: INSULIN LISPRO 100 UNIT/1 ML 3ML VIAL SQ SCH ×4 (08:41→22:00)
[2022-10-21] MEDS: BALSAM PERU/CASTOR OIL 60 GM OINT...G. TP SCH (12:20)
[2022-10-21] MEDS: PRAVASTATIN 20 MG TAB PO SCH (21:55)
[2022-10-21] MEDS: ASPIRIN 81 MG ENTERIC COATED PO SCH (21:55)
[2022-10-22] VITALS (7 sets, daily range): BP systolic 107–140; BP diastolic 48–68
[2022-10-22] MEDS ORDERED: MAGNESIUM HYDROXIDE 30 ML UDC PO STA (00:38)
[2022-10-22] MEDS: ALBUTEROL/IPRATROPIUM 3 ML NEB NEB SCH ×4 (01:45→19:10)
[2022-10-22] MEDS: INSULIN LISPRO 100 UNIT/1 ML 3ML VIAL SQ SCH ×4 (07:30→21:11)
[2022-10-22] MEDS: ASCORBIC ACID 500 MG TAB PO SCH ×3 (09:07→16:40)
[2022-10-22] MEDS: FUROSEMIDE 20 MG TAB PO SCH (09:07)
[2022-10-22] MEDS: BALSAM PERU/CASTOR OIL 60 GM OINT...G. TP SCH (09:07)
[2022-10-22] MEDS: GABAPENTIN 100 MG CAP PO SCH ×2 (09:07→16:41)
[2022-10-22] MEDS: DORZOLAMIDE/TIMOLOL (OPTH SOL) 10 ML DRPETTE OP SCH ×2 (12:42→16:40)
[2022-10-22] MEDS: ASPIRIN 81 MG ENTERIC COATED PO SCH (21:06)
[2022-10-22] MEDS: PRAVASTATIN 20 MG TAB PO SCH (21:06)
[2022-10-23] VITALS (9 sets, daily range): BP systolic 119–148; BP diastolic 44–69
[2022-10-23] MEDS: ALBUTEROL/IPRATROPIUM 3 ML NEB NEB SCH ×4 (00:15→20:30)
[2022-10-23] MEDS ORDERED: KETOROLAC TROMETHAMINE 30 MG/ML VIAL IV ONE (02:30)
[2022-10-23 05:50] LABS: BASOPHILS # (AUTO) 0.1 (0.0-0.1); BASOPHILS % 0.6 % (0.0-1.0); EOSINOPHILS # (AUTO) 0.3 (0.0-0.4); HEMATOCRIT 32.7 % (34.2-44.1); HEMOGLOBIN 9.6 g/dL (12.0-16.0); LYMPHOCYTES # (AUTO) 1.7 (1.0-3.2); LYMPHOCYTES % 20.8 % (18.0-39.1); MEAN CORPUSCULAR HGB CONC 29.4 g/dL (31-35); MEAN CORPUSCULAR VOLUME 95.3 fL (81-99); MONOCYTES # (AUTO) 0.7 (0.2-0.8); MONOCYTES % 8.4 % (4.4-11.3); NEUTROPHILS # (AUTO) 5.4 (2.1-6.9); NEUTROPHILS % 65.5 % (38.7-80.0); PLATELET COUNT 304 x10e3/uL (140-360); RED BLOOD COUNT 3.43 x10e6/uL (3.6-5.1); RED CELL DISTRIBUTION WIDTH 15.4 % (11.7-14.4)
[2022-10-23 06:13] LABS: ANION GAP 12.2 mmol/L (8-16); CALCIUM 8.5 mg/dL (8.4-10.2); CREATININE, SERUM 0.88 mg/dL (0.57-1.11); POTASSIUM 4.2 mmol/L (3.5-5.1)
[2022-10-23 06:29] LABS: PHOSPHORUS 1.9 MG/DL (2.3-4.7)
[2022-10-23] MEDS: INSULIN LISPRO 100 UNIT/1 ML 3ML VIAL SQ SCH ×4 (08:12→21:00)
[2022-10-23] MEDS: ASCORBIC ACID 500 MG TAB PO SCH ×3 (08:14→17:46)
[2022-10-23] MEDS: FUROSEMIDE 20 MG TAB PO SCH (08:14)
[2022-10-23] MEDS: LUBIPROSTONE 24 MCG CAP PO SCH ×2 (08:14→17:46)
[2022-10-23] MEDS: DORZOLAMIDE/TIMOLOL (OPTH SOL) 10 ML DRPETTE OP SCH ×2 (08:15→17:46)
[2022-10-23] MEDS: GABAPENTIN 100 MG CAP PO SCH ×2 (08:15→17:46)
[2022-10-23] MEDS: BALSAM PERU/CASTOR OIL 60 GM OINT...G. TP SCH (11:50)
[2022-10-23] MEDS: ALPRAZOLAM 0.25 MG TAB PO PRN ×2 (14:08→20:56)
[2022-10-23] MEDS: LIDOCAINE 4% PATCH TP SCH (19:19)
[2022-10-23] MEDS: ACETAMINOPHEN 325 MG TAB PO PRN (19:21)
[2022-10-23] MEDS: PRAVASTATIN 20 MG TAB PO SCH (20:56)
[2022-10-23] MEDS: ASPIRIN 81 MG ENTERIC COATED PO SCH (20:56)
[2022-10-24] VITALS (7 sets, daily range): BP systolic 100–143; BP diastolic 49–57
[2022-10-24] MEDS ORDERED: BISACODYL 5 MG TAB EC PO ONE (00:45)
[2022-10-24] MEDS: ALBUTEROL/IPRATROPIUM 3 ML NEB NEB SCH ×4 (04:20→18:45)
[2022-10-24] MEDS: INSULIN LISPRO 100 UNIT/1 ML 3ML VIAL SQ SCH ×4 (09:56→21:28)
[2022-10-24] MEDS: GABAPENTIN 100 MG CAP PO SCH ×2 (09:56→18:55)
[2022-10-24] MEDS: LUBIPROSTONE 24 MCG CAP PO SCH ×2 (09:56→18:55)
[2022-10-24] MEDS: FUROSEMIDE 20 MG TAB PO SCH (09:57)
[2022-10-24] MEDS: LIDOCAINE 4% PATCH TP SCH (09:57)
[2022-10-24] MEDS: ASCORBIC ACID 500 MG TAB PO SCH ×3 (09:57→18:55)
[2022-10-24] MEDS: NYSTATIN 15 GM POWDER UD BTL TOP SCH (09:57)
[2022-10-24] MEDS: DORZOLAMIDE/TIMOLOL (OPTH SOL) 10 ML DRPETTE OP SCH ×2 (09:58→18:57)
[2022-10-24] MEDS: BALSAM PERU/CASTOR OIL 60 GM OINT...G. TP SCH (09:58)
[2022-10-24] MEDS: ALPRAZOLAM 0.25 MG TAB PO PRN (21:19)
[2022-10-24] MEDS: ACETAMINOPHEN 325 MG TAB PO PRN (21:19)
[2022-10-24] MEDS: PRAVASTATIN 20 MG TAB PO SCH (21:20)
[2022-10-24] MEDS: ASPIRIN 81 MG ENTERIC COATED PO SCH (21:20)
[2022-10-25] VITALS (7 sets, daily range): BP systolic 103–153; BP diastolic 50–82
[2022-10-25] MEDS: ALBUTEROL/IPRATROPIUM 3 ML NEB NEB SCH ×4 (00:50→20:40)
[2022-10-25] MEDS: ASCORBIC ACID 500 MG TAB PO SCH ×3 (09:16→17:19)
[2022-10-25] MEDS: INSULIN LISPRO 100 UNIT/1 ML 3ML VIAL SQ SCH ×4 (09:16→22:14)
[2022-10-25] MEDS: LUBIPROSTONE 24 MCG CAP PO SCH ×2 (09:16→17:10)
[2022-10-25] MEDS: GABAPENTIN 100 MG CAP PO SCH ×2 (09:17→17:10)
[2022-10-25] MEDS: NYSTATIN 15 GM POWDER UD BTL TOP SCH (09:17)
[2022-10-25] MEDS: LIDOCAINE 4% PATCH TP SCH (09:17)
[2022-10-25] MEDS: FUROSEMIDE 20 MG TAB PO SCH (09:17)
[2022-10-25] MEDS: BALSAM PERU/CASTOR OIL 60 GM OINT...G. TP SCH (09:18)
[2022-10-25] MEDS: DORZOLAMIDE/TIMOLOL (OPTH SOL) 10 ML DRPETTE OP SCH ×2 (09:18→17:22)
[2022-10-25] MEDS: ALPRAZOLAM 0.25 MG TAB PO PRN (14:46)
[2022-10-25] MEDS: ACETAMINOPHEN 325 MG TAB PO PRN ×2 (17:11→22:09)
[2022-10-25] MEDS: PRAVASTATIN 20 MG TAB PO SCH (22:04)
[2022-10-25] MEDS: ASPIRIN 81 MG ENTERIC COATED PO SCH (22:04)
[2022-10-26] VITALS: BP 105/51
[2022-10-26] MEDS: ALBUTEROL/IPRATROPIUM 3 ML NEB NEB SCH ×3 (00:35→14:15)
[2022-10-26 04:00] VITALS: BP 126/67
[2022-10-26] MEDS: INSULIN LISPRO 100 UNIT/1 ML 3ML VIAL SQ SCH ×2 (07:30→12:00)
[2022-10-26 08:00] VITALS: BP 152/77
[2022-10-26] MEDS: GABAPENTIN 100 MG CAP PO SCH (08:12)
[2022-10-26] MEDS: ASCORBIC ACID 500 MG TAB PO SCH ×2 (08:12→12:25)
[2022-10-26] MEDS: LIDOCAINE 4% PATCH TP SCH (08:12)
[2022-10-26] MEDS: LUBIPROSTONE 24 MCG CAP PO SCH (08:12)
[2022-10-26] MEDS: FUROSEMIDE 20 MG TAB PO SCH (08:12)
[2022-10-26] MEDS: NYSTATIN 15 GM POWDER UD BTL TOP SCH (08:13)
[2022-10-26] MEDS: BALSAM PERU/CASTOR OIL 60 GM OINT...G. TP SCH (08:13)
[2022-10-26] MEDS: DORZOLAMIDE/TIMOLOL (OPTH SOL) 10 ML DRPETTE OP SCH (08:13)
[2022-10-26 09:46] VITALS: BP 152/77
[2022-10-26 12:44] VITALS: BP 102/70
== END 2022-10-26 14:41 | disposition home or self-care (01) | DRG 91 ==
LOC: ER 09:42 → ERHOLD 12:54 → MED/SURG2 20:39
PROVIDERS: ADMIT Internal Medicine; ATTEND Internal Medicine
DX: G92.9 Unspecified toxic encephalopathy (principal); J69.0 Pneumonitis due to inhalation of food and vomit; N39.0 Urinary tract infection, site not specified; D68.9 Coagulation defect, unspecified; R33.9 Retention of urine, unspecified; H70.90 Unspecified mastoiditis, unspecified ear; I10 Essential (primary) hypertension; I25.10 Atherosclerotic heart disease of native coronary artery without angina pectoris; E78.5 Hyperlipidemia, unspecified; J32.9 Chronic sinusitis, unspecified; M19.90 Unspecified osteoarthritis, unspecified site; D64.9 Anemia, unspecified; E11.65 Type 2 diabetes mellitus with hyperglycemia; N19 Unspecified kidney failure; R60.0 Localized edema; R53.81 Other malaise; F03.90 Unspecified dementia, unspecified severity, without behavioral disturbance, psychotic disturbance, mood disturbance, and anxiety; R79.89 Other specified abnormal findings of blood chemistry; N39.490 Overflow incontinence; N39.46 Mixed incontinence; N63.10 Unspecified lump in the right breast, unspecified quadrant; K56.41 Fecal impaction; R13.10 Dysphagia, unspecified; N95.2 Postmenopausal atrophic vaginitis; Z90.49 Acquired absence of other specified parts of digestive tract; Z98.51 Tubal ligation status; Z98.890 Other specified postprocedural states; Z98.49 Cataract extraction status, unspecified eye; Z88.5 Allergy status to narcotic agent; Z66 Do not resuscitate; Z79.82 Long term (current) use of aspirin; Z79.84 Long term (current) use of oral hypoglycemic drugs; Z79.899 Other long term (current) drug therapy; Z79.891 Long term (current) use of opiate analgesic; Z87.81 Personal history of (healed) traumatic fracture; Z86.16 Personal history of COVID-19; Z95.5 Presence of coronary angioplasty implant and graft; Z90.89 Acquired absence of other organs; Z87.891 Personal history of nicotine dependence; Z74.01 Bed confinement status
CPT/HCPCS: 0223U; 36415; 70450; 71045; 74177; 74230; 80048; 80053; 81001; 82550; 82553; 82948; 83540; 83605; 83690; 83735; 83880; 84100; 84466; 84484; 85025; 85610; 85730; 87040; 87086; 93005; 93306; 94640; 94799; 99252; 99285; J1650; J1885; J1940; J2185; J7030; J7050; Q9967

== ENCOUNTER 2022-12-01 10:57 | Inpatient (IN) | payer MEDICARE, OTHER ==
[~2022-12-01] VITALS: Ht 160 cm; Wt 68.0 kg
[2022-12-01] MEDS ORDERED: SODIUM CHLORIDE 0.9% 500ML 500 ML IV ONE (11:30)
[2022-12-01 11:45] LABS: BASOPHILS # (AUTO) 0.1 (0.0-0.1); BASOPHILS % 0.7 % (0.0-1.0); EOSINOPHILS # (AUTO) 0.6 (0.0-0.4); HEMATOCRIT 34.2 % (34.2-44.1); HEMOGLOBIN 10.7 g/dL (12.0-16.0); LYMPHOCYTES # (AUTO) 1.6 (1.0-3.2); LYMPHOCYTES % 16.5 % (18.0-39.1); MEAN CORPUSCULAR HGB CONC 31.3 g/dL (31-35); MEAN CORPUSCULAR VOLUME 92.7 fL (81-99); MONOCYTES # (AUTO) 0.7 (0.2-0.8); MONOCYTES % 7.1 % (4.4-11.3); NEUTROPHILS # (AUTO) 6.6 (2.1-6.9); NEUTROPHILS % 69.5 % (38.7-80.0); PLATELET COUNT 283 x10e3/uL (140-360); RED BLOOD COUNT 3.69 x10e6/uL (3.6-5.1); RED CELL DISTRIBUTION WIDTH 15.6 % (11.7-14.4)
[2022-12-01 11:57] LABS: INR 2.39; PROTHROMBIN TIME 26.5 seconds (11.9-14.5)
[2022-12-01 11:58] LABS: PARTIAL THROMBOPLASTIN TIME 39.3 seconds (23.8-35.5)
[2022-12-01 12:39] LABS: CLARITY,URINE CLOUDY (CLEAR); COLOR,URINE STRAW (YELLOW); KETONES,URINE NEGATIVE (NEGATIVE); LEUKOCYTE ESTERASE ,URINE MODERATE (NEGATIVE); NITRITE,URINE NEGATIVE (NEGATIVE); PROTEIN,URINE DIPSTICK 1+ (NEGATIVE); URINE UROBILINOGEN 0.2 mg/dL (0.2 - 1)
[2022-12-01 12:41] LABS: BACTERIA,URINE MODERATE /HPF; WBC,URINE (MAN) >50 /HPF (0-5)
[2022-12-01 12:42] LABS: EPITHELIAL CELLS,URINE FEW /LPF
[2022-12-01] MEDS ORDERED: MEROPENEM 1 GM in SODIUM CHLORIDE 0.9% 100 ML IV ONE (13:30)
[2022-12-01 13:33] LABS: ALANINE AMINOTRANSFERASE 7 IU/L (0-55); ALBUMIN 2.5 g/dL (3.5-5.0); ALBUMIN/GLOBULIN RATIO 0.8 (0.8-2.0); ALKALINE PHOSPHATASE 81 IU/L (40-150); ANION GAP 17.3 mmol/L (8-16); BLOOD UREA NITROGEN 55 mg/dL (7-26); BUN/CREATININE RATIO 18 (6-25); CALCIUM 8.8 mg/dL (8.4-10.2); CARBON DIOXIDE 18 mmol/L (22-29); CHLORIDE 109 mmol/L (98-107); CREATINE KINASE 19 IU/L (29-168); CREATININE, SERUM 3.08 mg/dL (0.57-1.11); GLUCOSE 203 mg/dL (74-118); MAGNESIUM 2.2 MG/DL (1.3-2.1); POTASSIUM 5.3 mmol/L (3.5-5.1); SODIUM 139 mmol/L (136-145)
[2022-12-01] MEDS ORDERED: ONDANSETRON HCL INJ 2MG/ML 2ML 2 MG/ML VIAL IV PRN (15:15)
[2022-12-01] MEDS ORDERED: SODIUM CHLORIDE 0.9% 1000ML 1,000 ML IV SCH (15:15)
[2022-12-01] MEDS ORDERED: POLYETHYLENE GLYCOL 3350 17 GM PACK PO PRN (15:45)
[2022-12-01] MEDS ORDERED: HYDRALAZINE HCL 20 MG/ML VIAL IV PRN (15:45)
[2022-12-01] MEDS ORDERED: FAMOTIDINE 20 MG/2 ML VIAL IV SCH (16:00)
[2022-12-01 16:30] VITALS: BP 121/84
[2022-12-01] MEDS: DOCUSATE SODIUM 100 MG CAP PO SCH (17:31)
[2022-12-01] MEDS ORDERED: SOD POLYSTYRENE SULFONATE SUSP 15 GM/60 ML BTL PO ONE (19:00)
[2022-12-01 19:04] LABS: CREATININE,URINE RANDOM 16.07 mg/dL (47-110)
[2022-12-01 19:06] LABS: TOTAL PROTEIN, URINE < 6.8 mg/dL (1-14)
[2022-12-01 20:00] VITALS: BP 167/81
[2022-12-01] MEDS: SODIUM BICARBONATE 8.4% 75 ML in SODIUM CHLORIDE 0.45% 1,000 ML IV SCH (20:29)
[2022-12-01] MEDS ORDERED: SODIUM CHLORIDE 0.45% 0 ML ONE (20:33)
[2022-12-02] VITALS (9 sets, daily range): BP systolic 119–182; BP diastolic 67–89
[2022-12-02] MEDS ORDERED: MELATONIN3 MG PO (02:26)
[2022-12-02] MEDS ORDERED: BIOFREEZE SQ (02:26)
[2022-12-02] MEDS ORDERED: TYLENOL325 MG PO (02:26)
[2022-12-02] MEDS ORDERED: PEPCID20 MG PO (02:26)
[2022-12-02] MEDS ORDERED: ONDANSETRON ODT4 MG PO (02:26)
[2022-12-02] MEDS ORDERED: IPRAT-ALBUT 0.5-3 ML IH (02:26)
[2022-12-02] MEDS ORDERED: CELEBREX100 MG PO (02:26)
[2022-12-02] MEDS ORDERED: LANTUS 3ML100 UNITS/ SQ (02:26)
[2022-12-02] MEDS ORDERED: LATANOPROST2.5 ML OP (02:26)
[2022-12-02] MEDS ORDERED: VESICARE5 MG PO (02:26)
[2022-12-02] MEDS ORDERED: LIDOCAINE HCL1 EACH (02:26)
[2022-12-02] MEDS ORDERED: LACTULOSE20 GM/30 M PO (02:26)
[2022-12-02] MEDS ORDERED: MILK OF MA400 MG/5 M PO (02:26)
[2022-12-02] MEDS ORDERED: XARELTO10 MG PO (02:26)
[2022-12-02] MEDS ORDERED: MIRALAX17 GM PO (02:26)
[2022-12-02] MEDS ORDERED: ACETAMIN-CODE12.5 ML PO (02:26)
[2022-12-02] MEDS ORDERED: BENZONATATE100 MG PO (02:26)
[2022-12-02] MEDS ORDERED: ANALPRAM HC 2.530 GM PR (02:26)
[2022-12-02] MEDS ORDERED: NOVOLOG100 UNIT/1 SC (02:26)
[2022-12-02] MEDS ORDERED: SENOKOT-S TABL1 EACH PO (02:26)
[2022-12-02 05:34] LABS: BASOPHILS # (AUTO) 0.1 (0.0-0.1); BASOPHILS % 0.7 % (0.0-1.0); EOSINOPHILS # (AUTO) 0.6 (0.0-0.4); EOSINOPHILS % 6.9 % (0.0-6.0); HEMOGLOBIN 10.5 g/dL (12.0-16.0); LYMPHOCYTES # (AUTO) 1.4 (1.0-3.2); LYMPHOCYTES % 17.7 % (18.0-39.1); MEAN CORPUSCULAR HEMOGLOBIN 28.8 pg (28-32); MEAN CORPUSCULAR HGB CONC 30.9 g/dL (31-35); MEAN CORPUSCULAR VOLUME 93.4 fL (81-99); MONOCYTES # (AUTO) 0.8 (0.2-0.8); MONOCYTES % 10.1 % (4.4-11.3); NEUTROPHILS # (AUTO) 5.2 (2.1-6.9); NEUTROPHILS % 64.4 % (38.7-80.0); PLATELET COUNT 256 x10e3/uL (140-360); RED BLOOD COUNT 3.64 x10e6/uL (3.6-5.1); RED CELL DISTRIBUTION WIDTH 14.9 % (11.7-14.4)
[2022-12-02 06:00] LABS: ALBUMIN 2.2 g/dL (3.5-5.0); ALBUMIN/GLOBULIN RATIO 0.7 (0.8-2.0); ANION GAP 14.8 mmol/L (8-16); CALCIUM 8.7 mg/dL (8.4-10.2); CREATININE, SERUM 2.84 mg/dL (0.57-1.11); POTASSIUM 4.8 mmol/L (3.5-5.1)
[2022-12-02 06:18] LABS: MAGNESIUM 2.1 MG/DL (1.3-2.1)
[2022-12-02] MEDS: DOCUSATE SODIUM 100 MG CAP PO SCH ×2 (09:40→20:58)
[2022-12-02] MEDS: SODIUM BICARBONATE 8.4% 75 ML in SODIUM CHLORIDE 0.45% 1,000 ML IV SCH ×2 (09:44→21:00)
[2022-12-02] MEDS: ACETAMINOPHEN 325 MG TAB PO PRN (10:42)
[2022-12-02] MEDS ORDERED: DEXTROSE 50% SYRINGE 50 ML IV PRN (13:00)
[2022-12-02] MEDS: SODIUM BICARBONATE 650 MG TAB PO SCH ×3 (13:55→20:58)
[2022-12-02] MEDS: INSULIN REGULAR, HUMAN 100 UNIT/1 ML SQ SCH ×2 (16:30→21:00)
[2022-12-02] MEDS ORDERED: CARBAMIDE PEROXIDE 15 ML BTL OT SCH (17:00)
[2022-12-02] MEDS ORDERED: ALBUTEROL SULF 0.083% NEB SOLN 3 ML NEB INH PRN (17:15)
[2022-12-02] MEDS ORDERED: LACTULOSE SYRUP 20 GM/30 ML UDC PO PRN (17:15)
[2022-12-02] MEDS: METOPROLOL TARTRATE INJ 1 MG/ML VIAL IV PRN (17:19)
[2022-12-02] MEDS ORDERED: IPRATROPIUM BROMIDE 0.02% 2.5 ML NEB NEB PRN (18:15)
[2022-12-02] MEDS: ACETAMINOPHEN/CODEINE 300MG - 30MG TAB PO PRN (18:24)
[2022-12-02] MEDS: MELATONIN 5 MG TABLET PO SCH (20:58)
[2022-12-02] MEDS: LATANOPROST(OPTH) 2.5 ML BTL OP SCH (21:03)
[2022-12-02] MEDS: CARBAMIDE PEROXIDE 15 ML BTL OT SCH (21:04)
[2022-12-03] VITALS (9 sets, daily range): BP systolic 148–172; BP diastolic 64–90
[2022-12-03 05:21] LABS: ALBUMIN/GLOBULIN RATIO 0.8 (0.8-2.0); ALKALINE PHOSPHATASE 57 IU/L (40-150); ANION GAP 14.1 mmol/L (8-16); BLOOD UREA NITROGEN 44 mg/dL (7-26); BUN/CREATININE RATIO 17 (6-25); CALCIUM 8.2 mg/dL (8.4-10.2); CARBON DIOXIDE 24 mmol/L (22-29); CHLORIDE 111 mmol/L (98-107); CREATININE, SERUM 2.66 mg/dL (0.57-1.11); GLUCOSE 132 mg/dL (74-118); POTASSIUM 4.1 mmol/L (3.5-5.1); SODIUM 145 mmol/L (136-145)
[2022-12-03 05:36] LABS: ALANINE AMINOTRANSFERASE < 6 IU/L (0-55)
[2022-12-03 08:39] LABS: INR 1.19; PROTHROMBIN TIME 15.6 seconds (11.9-14.5)
[2022-12-03] MEDS: DOCUSATE SODIUM 100 MG CAP PO SCH ×2 (09:00→18:00)
[2022-12-03] MEDS: SENNA-S TABLET PO SCH ×2 (09:00→15:22)
[2022-12-03] MEDS: CARBAMIDE PEROXIDE 15 ML BTL OT SCH ×2 (09:00→18:00)
[2022-12-03] MEDS: HYDROCORTISONE 2.5% PR CRM 1 OZ TUBE PR SCH ×2 (09:00→17:00)
[2022-12-03] MEDS: SOLIFENACIN SUCCINATE 5 MG TAB PO SCH (09:41)
[2022-12-03] MEDS: SODIUM BICARBONATE 650 MG TAB PO SCH ×3 (09:41→15:22)
[2022-12-03] MEDS: CARVEDILOL 12.5 MG TAB PO SCH ×2 (09:42→18:00)
[2022-12-03] MEDS: FLUTICASONE PROPIONATE NASAL SPRAY NS SCH ×2 (09:49→18:00)
[2022-12-03] MEDS: DORZOLAMIDE/TIMOLOL (OPTH SOL) 10 ML DRPETTE OP SCH ×2 (09:51→18:00)
[2022-12-03] MEDS: INSULIN GLARGINE 100 UNITS/ML VIAL SQ SCH (09:58)
[2022-12-03] MEDS: INSULIN REGULAR, HUMAN 100 UNIT/1 ML SQ SCH ×4 (10:00→22:20)
[2022-12-03] MEDS: ACETAMINOPHEN/CODEINE 300MG - 30MG TAB PO PRN ×2 (10:02→22:05)
[2022-12-03] MEDS ORDERED: ONDANSETRON HCL 4 MG ORAL DISINTEGRATING TAB PO PRN (11:15)
[2022-12-03] MEDS: BUMETANIDE INJ 0.25MG/ML 4ML VIAL IV SCH ×2 (13:52→22:06)
[2022-12-03] MEDS: LIDOCAINE 4% PATCH TP SCH ×2 (13:53→15:23)
[2022-12-03] MEDS: RIVAROXABAN 10 MG TABLET PO SCH (15:22)
[2022-12-03] MEDS: BALSAM PERU/CASTOR OIL 60 GM OINT...G. TP SCH (15:24)
[2022-12-03] MEDS: MELATONIN 5 MG TABLET PO SCH (22:07)
[2022-12-03] MEDS: LATANOPROST(OPTH) 2.5 ML BTL OP SCH (22:20)
[2022-12-04] VITALS (8 sets, daily range): BP systolic 141–186; BP diastolic 55–88
[2022-12-04] MEDS: BUMETANIDE INJ 0.25MG/ML 4ML VIAL IV SCH (04:01)
[2022-12-04] MEDS: ACETAMINOPHEN/CODEINE 300MG - 30MG TAB PO PRN ×3 (06:00→21:33)
[2022-12-04] MEDS: INSULIN GLARGINE 100 UNITS/ML VIAL SQ SCH (09:00)
[2022-12-04] MEDS: INSULIN REGULAR, HUMAN 100 UNIT/1 ML SQ SCH ×4 (09:00→21:00)
[2022-12-04] MEDS: HYDROCORTISONE 2.5% PR CRM 1 OZ TUBE PR SCH ×2 (09:00→17:00)
[2022-12-04] MEDS: CARBAMIDE PEROXIDE 15 ML BTL OT SCH ×2 (09:00→16:43)
[2022-12-04] MEDS: LIDOCAINE 4% PATCH TP SCH (09:00)
[2022-12-04] MEDS: DORZOLAMIDE/TIMOLOL (OPTH SOL) 10 ML DRPETTE OP SCH ×2 (09:00→16:42)
[2022-12-04] MEDS: SOLIFENACIN SUCCINATE 5 MG TAB PO SCH (09:25)
[2022-12-04] MEDS: SODIUM BICARBONATE 650 MG TAB PO SCH ×3 (09:25→21:25)
[2022-12-04] MEDS: SENNA-S TABLET PO SCH ×2 (09:26→16:41)
[2022-12-04] MEDS: CARVEDILOL 12.5 MG TAB PO SCH ×2 (09:26→16:42)
[2022-12-04] MEDS: LATANOPROST(OPTH) 2.5 ML BTL OP SCH (09:26)
[2022-12-04] MEDS: DOCUSATE SODIUM 100 MG CAP PO SCH ×2 (09:26→16:40)
[2022-12-04] MEDS: FLUTICASONE PROPIONATE NASAL SPRAY NS SCH ×2 (09:28→16:43)
[2022-12-04] MEDS: RIVAROXABAN 10 MG TABLET PO SCH (09:29)
[2022-12-04] MEDS: BALSAM PERU/CASTOR OIL 60 GM OINT...G. TP SCH (09:30)
[2022-12-04] MEDS: METOPROLOL TARTRATE INJ 1 MG/ML VIAL IV PRN (13:07)
[2022-12-04] MEDS: BUMETANIDE 1 MG TAB PO SCH (16:43)
[2022-12-04] MEDS: MELATONIN 5 MG TABLET PO SCH (21:25)
[2022-12-05] VITALS (8 sets, daily range): BP systolic 131–186; BP diastolic 57–100
[2022-12-05] MEDS: ACETAMINOPHEN 325 MG TAB PO PRN ×2 (01:36→17:24)
[2022-12-05] MEDS: ACETAMINOPHEN/CODEINE 300MG - 30MG TAB PO PRN ×2 (03:38→13:05)
[2022-12-05] MEDS: METOPROLOL TARTRATE INJ 1 MG/ML VIAL IV PRN (05:59)
[2022-12-05] MEDS: BALSAM PERU/CASTOR OIL 60 GM OINT...G. TP SCH (08:49)
[2022-12-05] MEDS: DOCUSATE SODIUM 100 MG CAP PO SCH ×2 (08:49→16:03)
[2022-12-05] MEDS: RIVAROXABAN 10 MG TABLET PO SCH (08:49)
[2022-12-05] MEDS: BUMETANIDE 1 MG TAB PO SCH ×2 (08:50→16:03)
[2022-12-05] MEDS: SENNA-S TABLET PO SCH ×2 (08:50→16:03)
[2022-12-05] MEDS: SOLIFENACIN SUCCINATE 5 MG TAB PO SCH (08:50)
[2022-12-05] MEDS: AMLODIPINE BESYLATE 10 MG TAB PO SCH (08:50)
[2022-12-05] MEDS: CARVEDILOL 12.5 MG TAB PO SCH ×2 (08:50→16:02)
[2022-12-05] MEDS: SODIUM BICARBONATE 650 MG TAB PO SCH ×3 (08:50→21:00)
[2022-12-05] MEDS: LIDOCAINE 4% PATCH TP SCH (08:51)
[2022-12-05] MEDS: HYDROCORTISONE 2.5% PR CRM 1 OZ TUBE PR SCH ×2 (09:00→16:04)
[2022-12-05] MEDS: FLUTICASONE PROPIONATE NASAL SPRAY NS SCH ×2 (09:03→16:06)
[2022-12-05] MEDS: DORZOLAMIDE/TIMOLOL (OPTH SOL) 10 ML DRPETTE OP SCH ×2 (09:03→16:05)
[2022-12-05] MEDS: INSULIN REGULAR, HUMAN 100 UNIT/1 ML SQ SCH ×4 (09:10→20:21)
[2022-12-05] MEDS: INSULIN GLARGINE 100 UNITS/ML VIAL SQ SCH (09:11)
[2022-12-05] MEDS: CARBAMIDE PEROXIDE 15 ML BTL OT SCH ×2 (10:28→16:07)
[2022-12-05] MEDS: HYDRALAZINE HCL 25 MG TAB PO SCH ×2 (16:02→21:00)
[2022-12-05] MEDS: MELATONIN 5 MG TABLET PO SCH (21:00)
[2022-12-05] MEDS: LATANOPROST(OPTH) 2.5 ML BTL OP SCH (22:00)
[2022-12-06] VITALS: BP 143/71
[2022-12-06] MEDS: ACETAMINOPHEN/CODEINE 300MG - 30MG TAB PO PRN ×3 (03:49→16:04)
[2022-12-06] MEDS: METOPROLOL TARTRATE INJ 1 MG/ML VIAL IV PRN (03:49)
[2022-12-06 05:43] LABS: BASOPHILS # (AUTO) 0.1 (0.0-0.1); BASOPHILS % 0.8 % (0.0-1.0); EOSINOPHILS # (AUTO) 0.2 (0.0-0.4); EOSINOPHILS % 2.3 % (0.0-6.0); HEMATOCRIT 32.5 % (34.2-44.1); HEMOGLOBIN 10.5 g/dL (12.0-16.0); LYMPHOCYTES # (AUTO) 1.3 (1.0-3.2); LYMPHOCYTES % 16.9 % (18.0-39.1); MEAN CORPUSCULAR HGB CONC 32.3 g/dL (31-35); MEAN CORPUSCULAR VOLUME 89.8 fL (81-99); MONOCYTES # (AUTO) 0.6 (0.2-0.8); MONOCYTES % 7.5 % (4.4-11.3); NEUTROPHILS # (AUTO) 5.6 (2.1-6.9); NEUTROPHILS % 72.2 % (38.7-80.0); PLATELET COUNT 230 x10e3/uL (140-360); RED BLOOD COUNT 3.62 x10e6/uL (3.6-5.1); RED CELL DISTRIBUTION WIDTH 14.2 % (11.7-14.4)
[2022-12-06 06:11] LABS: ALBUMIN 2.3 g/dL (3.5-5.0); ALBUMIN/GLOBULIN RATIO 0.9 (0.8-2.0); ANION GAP 17.3 mmol/L (8-16); CALCIUM 8.5 mg/dL (8.4-10.2); CREATININE, SERUM 2.24 mg/dL (0.57-1.11); POTASSIUM 3.3 mmol/L (3.5-5.1)
[2022-12-06] MEDS: INSULIN REGULAR, HUMAN 100 UNIT/1 ML SQ SCH ×3 (07:30→16:14)
[2022-12-06 08:08] VITALS: BP 157/68
[2022-12-06 08:22] VITALS: BP 157/68
[2022-12-06] MEDS: RIVAROXABAN 10 MG TABLET PO SCH (08:51)
[2022-12-06] MEDS: SENNA-S TABLET PO SCH ×2 (08:51→16:13)
[2022-12-06] MEDS: CARVEDILOL 12.5 MG TAB PO SCH ×2 (08:51→16:13)
[2022-12-06] MEDS: HYDRALAZINE HCL 25 MG TAB PO SCH ×2 (08:51→15:34)
[2022-12-06] MEDS: BUMETANIDE 1 MG TAB PO SCH ×2 (08:51→16:10)
[2022-12-06] MEDS: DOCUSATE SODIUM 100 MG CAP PO SCH ×2 (08:51→16:13)
[2022-12-06] MEDS: AMLODIPINE BESYLATE 10 MG TAB PO SCH (08:52)
[2022-12-06] MEDS: SODIUM BICARBONATE 650 MG TAB PO SCH ×2 (08:52→15:33)
[2022-12-06] MEDS: SOLIFENACIN SUCCINATE 5 MG TAB PO SCH (08:52)
[2022-12-06] MEDS: BALSAM PERU/CASTOR OIL 60 GM OINT...G. TP SCH (08:55)
[2022-12-06] MEDS: DORZOLAMIDE/TIMOLOL (OPTH SOL) 10 ML DRPETTE OP SCH ×2 (08:55→16:13)
[2022-12-06] MEDS: LIDOCAINE 4% PATCH TP SCH (08:55)
[2022-12-06] MEDS: FLUTICASONE PROPIONATE NASAL SPRAY NS SCH ×2 (08:55→16:13)
[2022-12-06] MEDS: HYDROCORTISONE 2.5% PR CRM 1 OZ TUBE PR SCH ×2 (08:57→16:14)
[2022-12-06] MEDS: CARBAMIDE PEROXIDE 15 ML BTL OT SCH ×2 (09:11→16:14)
[2022-12-06] MEDS: INSULIN GLARGINE 100 UNITS/ML VIAL SQ SCH (09:13)
[2022-12-06 11:44] VITALS: BP 119/49
[2022-12-06] MEDS ORDERED: POTASSIUM CHLORIDE 20 MEQ TAB CR PO STA (13:00)
[2022-12-06 15:44] VITALS: BP 145/65
[2022-12-07] MEDS ORDERED: ALENDRONATE SODIUM 70 MG TAB PO SCH (06:00)
== END 2022-12-06 19:48 | DRG 690 ==
LOC: ER 11:03 → ERHOLD 15:10 → MED/SURG3 16:20
PROVIDERS: ADMIT Internal Medicine; ATTEND Internal Medicine
PROC: 0W993ZZ Drainage of Right Pleural Cavity, Percutaneous Approach (ICD-10-PCS; principal; 2022-12-03)
DX: N39.0 Urinary tract infection, site not specified (principal); N17.9 Acute kidney failure, unspecified; J90 Pleural effusion, not elsewhere classified; E87.20 Acidosis, unspecified; L97.429 Non-pressure chronic ulcer of left heel and midfoot with unspecified severity; L97.419 Non-pressure chronic ulcer of right heel and midfoot with unspecified severity; E11.22 Type 2 diabetes mellitus with diabetic chronic kidney disease; I12.9 Hypertensive chronic kidney disease with stage 1 through stage 4 chronic kidney disease, or unspecified chronic kidney disease; N18.9 Chronic kidney disease, unspecified; E87.5 Hyperkalemia; D63.1 Anemia in chronic kidney disease; E78.5 Hyperlipidemia, unspecified; H91.90 Unspecified hearing loss, unspecified ear; I25.2 Old myocardial infarction; I25.10 Atherosclerotic heart disease of native coronary artery without angina pectoris; M19.90 Unspecified osteoarthritis, unspecified site; R29.6 Repeated falls; M51.36 Other intervertebral disc degeneration, lumbar region; E66.9 Obesity, unspecified; H40.9 Unspecified glaucoma; R00.0 Tachycardia, unspecified; R60.1 Generalized edema; B96.1 Klebsiella pneumoniae [K. pneumoniae] as the cause of diseases classified elsewhere; B96.20 Unspecified Escherichia coli [E. coli] as the cause of diseases classified elsewhere; Z66 Do not resuscitate; Z20.822 Contact with and (suspected) exposure to COVID-19; Z79.82 Long term (current) use of aspirin; Z79.4 Long term (current) use of insulin; Z79.01 Long term (current) use of anticoagulants; Z96.642 Presence of left artificial hip joint; Z74.01 Bed confinement status; Z86.16 Personal history of COVID-19; Z95.5 Presence of coronary angioplasty implant and graft
CPT/HCPCS: 0223U; 32555; 36415; 71045; 71250; 74470; 76770; 78580; 80053; 81001; 82550; 82553; 82570; 82948; 83735; 83880; 84100; 84156; 84484; 85025; 85610; 85730; 87086; 87186; 93005; 93306; 93970; 94799; 99252; 99285; A9540; J1815; J2185; J7030; J7040; J7050

== ENCOUNTER 2023-07-13 14:40 | Inpatient (IN) | payer MEDICARE, OTHER ==
[~2023-07-13] VITALS: Ht 160 cm; Wt 68.0 kg
[~2023-07-13 14:40] MED LIST changes: +ACETAMIN-CODE12.5 ML PO; +ALBUTEROL0.63 MG/3 NEB; +AMLODIPINE BESY10 MG PO; +ANALPRAM HC 2.530 GM PR; +BASAGLAR K100 UNIT/1; +BENZONATATE100 MG PO; +BIOFREEZE SQ; +BRIMONIDINE TART5 ML OP; +BUTRANS1 EACH; +CELEBREX100 MG PO; +DOCUSATE SODIU100 MG PO; +FLONASE ALLERG9.9 ML; -FLONASE ALLERG9.9 ML INH; +IPRAT-ALBUT 0.5-3 ML IH; +LACTULOSE20 GM/30 M PO; +LANTUS 3ML100 UNITS/ SQ; +LIDOCAINE HCL1 EACH; +MELATONIN3 MG PO; +MILK OF MA400 MG/5 M PO; +MIRALAX17 GM PO; +NOVOLOG100 UNIT/1 SC; +OCUVITE LUTEIN1 EACH PO; +ONDANSETRON ODT4 MG PO; +OXYBUTYNIN CHLOR5 MG PO; +PEPCID20 MG PO; +SENOKOT-S TABL1 EACH PO; +SODIUM BICARBO650 MG PO; +TIMOPTIC 0.25%1 EACH OD; +TORSEMIDE20 MG PO; +TRAZODONE HCL50 MG PO; +TYLENOL325 MG PO; +ULTRAM 50MG50 MG PO; +VESICARE5 MG PO; +XARELTO10 MG PO; +ZOLOFT50 MG PO
[2023-07-13 16:16] LABS: BASOPHILS # (AUTO) 0.1 (0.0-0.1); BASOPHILS % 0.5 % (0.0-1.0); EOSINOPHILS % 0.1 % (0.0-6.0); HEMATOCRIT 37.6 % (34.2-44.1); LYMPHOCYTES # (AUTO) 1.5 (1.0-3.2); LYMPHOCYTES % 9.8 % (18.0-39.1); MEAN CORPUSCULAR HEMOGLOBIN 28.8 pg (28-32); MEAN CORPUSCULAR HGB CONC 31.9 g/dL (31-35); MEAN CORPUSCULAR VOLUME 90.2 fL (81-99); MONOCYTES # (AUTO) 0.6 (0.2-0.8); MONOCYTES % 4.3 % (4.4-11.3); NEUTROPHILS # (AUTO) 12.5 (2.1-6.9); NEUTROPHILS % 84.7 % (38.7-80.0); PLATELET COUNT 320 x10e3/uL (140-360); RED BLOOD COUNT 4.17 x10e6/uL (3.6-5.1); RED CELL DISTRIBUTION WIDTH 16.1 % (11.7-14.4); WHITE BLOOD COUNT 14.77 x10e3/uL (4.8-10.8)
[2023-07-13 16:18] LABS: CLARITY,URINE CLOUDY (CLEAR); COLOR,URINE YELLOW (YELLOW); GLUCOSE, URINE NEGATIVE (NEGATIVE); LEUKOCYTE ESTERASE ,URINE SMALL (NEGATIVE); NITRITE,URINE NEGATIVE (NEGATIVE); PH,URINE 5.5 (5 - 7); PROTEIN,URINE DIPSTICK 1+ (NEGATIVE)
[2023-07-13 16:19] LABS: BILIRUBIN,URINE NEGATIVE (NEGATIVE); KETONES,URINE >=160 (NEGATIVE); URINE UROBILINOGEN 0.2 mg/dL (0.2 - 1)
[2023-07-13] MEDS ORDERED: DEXTROSE 5%/0.45% SOD CHL 1,000 ML IV ONE (16:30)
[2023-07-13 16:34] LABS: AMORPHOUS SEDIMENT,URINE MODERATE (FEW); BACTERIA,URINE MANY /HPF; EPITHELIAL CELLS,URINE FEW /LPF; WBC,URINE (MAN) 21-50 /HPF (0-5)
[2023-07-13 16:41] LABS: ALBUMIN 2.7 g/dL (3.5-5.0); ALBUMIN/GLOBULIN RATIO 0.8 (0.8-2.0); ANION GAP 25.1 mmol/L (8-16); BILIRUBIN,TOTAL 0.3 mg/dL (0.2-1.2); CALCIUM 9.1 mg/dL (8.4-10.2); CREATININE, SERUM 1.37 mg/dL (0.57-1.11); MAGNESIUM 2.3 MG/DL (1.3-2.1); POTASSIUM 5.1 mmol/L (3.5-5.1); TOTAL PROTEIN 6.2 g/dL (6.5-8.1)
[2023-07-13] MEDS ORDERED: LACTATED RINGER'S 1,000 ML IV ONE (17:00)
[2023-07-13] MEDS ORDERED: INSULIN REGULAR, HUMAN 100 UNIT/1 ML IV ONE (17:00)
[2023-07-13 17:29] LABS: TROPONIN I 0.08 ng/mL (0.0-0.40)
[2023-07-13] MEDS ORDERED: ACETAMINOPHEN 1000 MG/100 ML IV STA (19:30)
[2023-07-13 20:00] VITALS: BP 94/52; PULSE 104; RESP 21; TEMP 97.7; O2SAT 99
[2023-07-13] MEDS ORDERED: ONDANSETRON HCL INJ 2MG/ML 2ML 2 MG/ML VIAL IV PRN (20:30)
[2023-07-13] MEDS ORDERED: METOPROLOL TARTRATE INJ 1 MG/ML VIAL IV PRN (20:30)
[2023-07-13] MEDS ORDERED: ACETAMINOPHEN 650 MG SUPP PR PRN (21:00)
[2023-07-13 22:22] LABS: CREATININE,URINE RANDOM 25.17 mg/dL (47-110); TOTAL PROTEIN, URINE 19.9 mg/dL (1-14)
[2023-07-14] VITALS (12 sets, daily range): BP systolic 94–135; BP diastolic 48–69; PULSE 104–116; RESP 16–21; TEMP 97.3–98.1; O2SAT 98–100
[2023-07-14] MEDS ORDERED: LANTUS 3ML100 UNITS/ SC (02:28)
[2023-07-14] MEDS: SODIUM BICARBONATE 8.4% 75 ML in SODIUM CHLORIDE 0.45% 1,000 ML IV SCH ×2 (03:29→15:58)
[2023-07-14 04:57] LABS: BASOPHILS # (AUTO) 0.1 (0.0-0.1); BASOPHILS % 0.5 % (0.0-1.0); EOSINOPHILS % 0.1 % (0.0-6.0); HEMOGLOBIN 11.1 g/dL (12.0-16.0); LYMPHOCYTES # (AUTO) 1.6 (1.0-3.2); LYMPHOCYTES % 11.4 % (18.0-39.1); MEAN CORPUSCULAR HEMOGLOBIN 28.6 pg (28-32); MEAN CORPUSCULAR HGB CONC 31.7 g/dL (31-35); MEAN CORPUSCULAR VOLUME 90.2 fL (81-99); MONOCYTES # (AUTO) 1.1 (0.2-0.8); MONOCYTES % 7.7 % (4.4-11.3); NEUTROPHILS % 79.6 % (38.7-80.0); PLATELET COUNT 284 x10e3/uL (140-360); RED BLOOD COUNT 3.88 x10e6/uL (3.6-5.1); RED CELL DISTRIBUTION WIDTH 16.6 % (11.7-14.4); WHITE BLOOD COUNT 13.81 x10e3/uL (4.8-10.8)
[2023-07-14 05:23] LABS: ANION GAP 25.8 mmol/L (8-16); CREATININE, SERUM 1.46 mg/dL (0.57-1.11); POTASSIUM 4.8 mmol/L (3.5-5.1)
[2023-07-14 05:24] LABS: CHOL/HDL RATIO 4.8 (3.0-3.6); MAGNESIUM 2.1 MG/DL (1.3-2.1); PHOSPHORUS 4.4 MG/DL (2.3-4.7)
[2023-07-14 05:47] LABS: FREE T4 (FREE THYROXINE) 1.12 ng/dL (0.8-1.8); THYROID STIMULATING HORMONE 1.96 uIU/mL (0.350-4.940)
[2023-07-14] MEDS ORDERED: ACETAMIN/BUTALBITAL/CAFFEINE TAB PO PRN (09:15)
[2023-07-14] MEDS: FAMOTIDINE 20 MG/2 ML VIAL IV SCH ×2 (10:01→17:45)
[2023-07-14] MEDS: KETOROLAC TROMETHAMINE 30 MG/ML VIAL IV PRN ×2 (10:01→19:57)
[2023-07-14] MEDS: BISACODYL 10 MG SUPP PR SCH (17:45)
[2023-07-14 18:32] LABS: ANION GAP 22.5 mmol/L (8-16); CREATININE, SERUM 1.43 mg/dL (0.57-1.11); POTASSIUM 4.5 mmol/L (3.5-5.1)
[2023-07-14] MEDS ORDERED: SODIUM CHLORIDE 0.9% 250ML 250 ML ONE (18:33)
[2023-07-14] MEDS: SODIUM CHLORIDE 0.45% 1,000 ML IV SCH (19:57)
[2023-07-14] MEDS ORDERED: DEXTROSE 50% SYRINGE 50 ML IV PRN (20:00)
[2023-07-14 20:54] LABS: ANION GAP 24.5 mmol/L (8-16); CALCIUM 9.1 mg/dL (8.4-10.2); CREATININE, SERUM 1.4 mg/dL (0.57-1.11); POTASSIUM 4.5 mmol/L (3.5-5.1)
[2023-07-14] MEDS ORDERED: INSULIN GLARGINE 100 UNITS/ML VIAL SQ SCH (21:00)
[2023-07-14] MEDS: INSULIN REGULAR, HUMAN 100 UNIT/1 ML SQ SCH (21:47)
[2023-07-15] VITALS (9 sets, daily range): BP systolic 117–133; BP diastolic 41–59; PULSE 90–105; RESP 16–20; TEMP 97.2–98.6; O2SAT 98–100
[2023-07-15 06:23] LABS: ANION GAP 18.9 mmol/L (8-16); CALCIUM 8.9 mg/dL (8.4-10.2); CREATININE, SERUM 1.3 mg/dL (0.57-1.11); MAGNESIUM 2.1 MG/DL (1.3-2.1); POTASSIUM 3.9 mmol/L (3.5-5.1)
[2023-07-15] MEDS: FAMOTIDINE 20 MG/2 ML VIAL IV SCH ×2 (08:49→17:34)
[2023-07-15] MEDS: SODIUM CHLORIDE 0.45% 1,000 ML IV SCH (08:49)
[2023-07-15] MEDS: BISACODYL 10 MG SUPP PR SCH (08:49)
[2023-07-15] MEDS ORDERED: INSULIN GLARGINE 100 UNITS/ML VIAL SQ SCH (09:00)
[2023-07-15] MEDS: INSULIN REGULAR, HUMAN 100 UNIT/1 ML SQ SCH ×4 (09:01→21:00)
[2023-07-15] MEDS ORDERED: SODIUM CHLORIDE 0.9% 250ML 250 ML ONE (14:50)
[2023-07-15] MEDS: ACETAMINOPHEN 1000 MG/100 ML IV PRN (14:58)
[2023-07-15 16:13] LABS: ANION GAP 12.6 mmol/L (8-16); CALCIUM 8.6 mg/dL (8.4-10.2); CREATININE, SERUM 1.15 mg/dL (0.57-1.11); POTASSIUM 3.6 mmol/L (3.5-5.1)
[2023-07-15] MEDS: DEXTROSE 5%/0.45% SOD CHL 1,000 ML IV SCH (18:08)
[2023-07-15] MEDS: LATANOPROST(OPTH) 2.5 ML BTL OP SCH (20:42)
[2023-07-15] MEDS: DORZOLAMIDE/TIMOLOL (OPTH SOL) 10 ML DRPETTE OP SCH (20:42)
[2023-07-15] MEDS ORDERED: BRIMONIDINE TARTRATE 0.15% OPTH DRPS 10ML BTL OP SCH (21:00)
[2023-07-15] MEDS ORDERED: TIMOLOL MALEATE 0.25% OPTHLAMIC DROPS 5 ML OD SCH (21:00)
[2023-07-15 22:49] LABS: ANION GAP 13.6 mmol/L (8-16); CALCIUM 8.5 mg/dL (8.4-10.2); CREATININE, SERUM 1.09 mg/dL (0.57-1.11); POTASSIUM 3.6 mmol/L (3.5-5.1)
[2023-07-16] VITALS (10 sets, daily range): BP systolic 112–131; BP diastolic 48–69; PULSE 73–103; RESP 16–22; TEMP 97.6–98.3; O2SAT 95–100
[2023-07-16 07:06] LABS: ANION GAP 9.3 mmol/L (8-16); CALCIUM 8.2 mg/dL (8.4-10.2); CREATININE, SERUM 0.98 mg/dL (0.57-1.11); MAGNESIUM 1.9 MG/DL (1.3-2.1); POTASSIUM 3.3 mmol/L (3.5-5.1)
[2023-07-16] MEDS: BISACODYL 10 MG SUPP PR SCH (09:00)
[2023-07-16] MEDS: DEXTROSE 5%/0.45% SOD CHL 1,000 ML IV SCH (10:00)
[2023-07-16] MEDS: ACETAMINOPHEN 1000 MG/100 ML IV PRN (10:01)
[2023-07-16] MEDS: FAMOTIDINE 20 MG/2 ML VIAL IV SCH ×2 (10:02→18:56)
[2023-07-16] MEDS: INSULIN REGULAR, HUMAN 100 UNIT/1 ML SQ SCH ×4 (10:14→21:00)
[2023-07-16] MEDS ORDERED: POTASSIUM CHLORIDE 10MEQ EA PO ONE (12:15)
[2023-07-16] MEDS: DORZOLAMIDE/TIMOLOL (OPTH SOL) 10 ML DRPETTE OP SCH ×2 (13:11→21:21)
[2023-07-16] MEDS: BALSAM PERU/CASTOR OIL 60 GM OINT...G. TP SCH (13:12)
[2023-07-16 13:28] LABS: ANION GAP 9.2 mmol/L (8-16); CREATININE, SERUM 0.93 mg/dL (0.57-1.11); MAGNESIUM 1.9 MG/DL (1.3-2.1); POTASSIUM 3.2 mmol/L (3.5-5.1)
[2023-07-16 16:44] LABS: CLARITY,URINE SL CLOUDY (CLEAR); LEUKOCYTE ESTERASE ,URINE MODERATE (NEGATIVE); NITRITE,URINE NEGATIVE (NEGATIVE); PH,URINE 5.5 (5 - 7)
[2023-07-16 16:45] LABS: BILIRUBIN,URINE NEGATIVE (NEGATIVE); COLOR,URINE YELLOW (YELLOW); GLUCOSE, URINE NEGATIVE (NEGATIVE); KETONES,URINE NEGATIVE (NEGATIVE); PROTEIN,URINE DIPSTICK NEGATIVE (NEGATIVE); URINE UROBILINOGEN 0.2 mg/dL (0.2 - 1)
[2023-07-16 17:01] LABS: AMORPHOUS SEDIMENT,URINE MODERATE (FEW); BACTERIA,URINE FEW /HPF
[2023-07-16] MEDS: LATANOPROST(OPTH) 2.5 ML BTL OP SCH (21:20)
[2023-07-16] MEDS: D5.45%NS/KCL 20MEQ 1,000 ML IV SCH (21:24)
[2023-07-16 23:48] LABS: ANION GAP 10.3 mmol/L (8-16); CALCIUM 8.1 mg/dL (8.4-10.2); CREATININE, SERUM 0.88 mg/dL (0.57-1.11); MAGNESIUM 1.9 MG/DL (1.3-2.1); POTASSIUM 3.3 mmol/L (3.5-5.1)
[2023-07-17] VITALS (8 sets, daily range): BP systolic 121–147; BP diastolic 50–68; PULSE 83–100; RESP 17–20; TEMP 97.8–99.1; O2SAT 97–100
[2023-07-17 05:28] LABS: ANION GAP 8.3 mmol/L (8-16); CALCIUM 7.8 mg/dL (8.4-10.2); CREATININE, SERUM 0.87 mg/dL (0.57-1.11); MAGNESIUM 1.8 MG/DL (1.3-2.1); POTASSIUM 3.3 mmol/L (3.5-5.1)
[2023-07-17 06:25] LABS: BASOPHILS # (AUTO) 0.1 (0.0-0.1); BASOPHILS % 0.4 % (0.0-1.0); EOSINOPHILS # (AUTO) 0.5 (0.0-0.4); EOSINOPHILS % 2.6 % (0.0-6.0); HEMATOCRIT 32.7 % (34.2-44.1); HEMOGLOBIN 10.8 g/dL (12.0-16.0); LYMPHOCYTES # (AUTO) 1.5 (1.0-3.2); LYMPHOCYTES % 7.2 % (18.0-39.1); MEAN CORPUSCULAR HEMOGLOBIN 29.7 pg (28-32); MEAN CORPUSCULAR VOLUME 89.8 fL (81-99); MONOCYTES # (AUTO) 0.9 (0.2-0.8); MONOCYTES % 4.4 % (4.4-11.3); NEUTROPHILS # (AUTO) 17.2 (2.1-6.9); NEUTROPHILS % 84.9 % (38.7-80.0); PLATELET COUNT 218 x10e3/uL (140-360); RED BLOOD COUNT 3.64 x10e6/uL (3.6-5.1); RED CELL DISTRIBUTION WIDTH 16.9 % (11.7-14.4)
[2023-07-17] MEDS: INSULIN REGULAR, HUMAN 100 UNIT/1 ML SQ SCH ×4 (08:13→21:36)
[2023-07-17] MEDS: FAMOTIDINE 20 MG/2 ML VIAL IV SCH ×2 (08:14→16:59)
[2023-07-17] MEDS: BISACODYL 10 MG SUPP PR SCH (08:14)
[2023-07-17] MEDS: DORZOLAMIDE/TIMOLOL (OPTH SOL) 10 ML DRPETTE OP SCH ×2 (08:15→22:03)
[2023-07-17 09:22] LABS: ANION GAP 8.4 mmol/L (8-16); CREATININE, SERUM 0.87 mg/dL (0.57-1.11); POTASSIUM 3.4 mmol/L (3.5-5.1)
[2023-07-17] MEDS: D5.45%NS/KCL 20MEQ 1,000 ML IV SCH (11:31)
[2023-07-17 12:57] LABS: ANION GAP 9.4 mmol/L (8-16); CALCIUM 7.9 mg/dL (8.4-10.2); CREATININE, SERUM 0.84 mg/dL (0.57-1.11); MAGNESIUM 1.9 MG/DL (1.3-2.1); POTASSIUM 3.4 mmol/L (3.5-5.1)
[2023-07-17] MEDS: BALSAM PERU/CASTOR OIL 60 GM OINT...G. TP SCH (15:22)
[2023-07-17 18:14] LABS: ANION GAP 10.2 mmol/L (8-16); CALCIUM 7.8 mg/dL (8.4-10.2); CREATININE, SERUM 0.94 mg/dL (0.57-1.11); MAGNESIUM 1.8 MG/DL (1.3-2.1); POTASSIUM 3.2 mmol/L (3.5-5.1)
[2023-07-17] MEDS ORDERED: ACETAMINOPHEN 325 MG TAB PO PRN (18:45)
[2023-07-17] MEDS: LATANOPROST(OPTH) 2.5 ML BTL OP SCH (22:03)
[2023-07-17] MEDS: KETOROLAC TROMETHAMINE 30 MG/ML VIAL IV PRN (22:18)
[2023-07-18] VITALS (8 sets, daily range): BP systolic 104–135; BP diastolic 45–85; PULSE 61–104; RESP 18–20; TEMP 98.2–98.7; O2SAT 96–100
[2023-07-18] MEDS: SOD CHL 0.45%/POT CHL 20MEQ 1,000 ML IV SCH (06:21)
[2023-07-18 06:55] LABS: BASOPHILS # (AUTO) 0.1 (0.0-0.1); BASOPHILS % 0.3 % (0.0-1.0); EOSINOPHILS # (AUTO) 0.8 (0.0-0.4); EOSINOPHILS % 4.4 % (0.0-6.0); HEMATOCRIT 33.1 % (34.2-44.1); LYMPHOCYTES # (AUTO) 1.1 (1.0-3.2); MEAN CORPUSCULAR HEMOGLOBIN 29.6 pg (28-32); MEAN CORPUSCULAR HGB CONC 33.2 g/dL (31-35); MONOCYTES # (AUTO) 1.1 (0.2-0.8); MONOCYTES % 5.8 % (4.4-11.3); NEUTROPHILS # (AUTO) 15.4 (2.1-6.9); NEUTROPHILS % 82.9 % (38.7-80.0); PLATELET COUNT 195 x10e3/uL (140-360); RED BLOOD COUNT 3.72 x10e6/uL (3.6-5.1); RED CELL DISTRIBUTION WIDTH 16.6 % (11.7-14.4); WHITE BLOOD COUNT 18.59 x10e3/uL (4.8-10.8)
[2023-07-18 07:25] LABS: ALBUMIN 1.7 g/dL (3.5-5.0); ALBUMIN/GLOBULIN RATIO 0.7 (0.8-2.0); ANION GAP 8.3 mmol/L (8-16); BILIRUBIN,TOTAL 0.4 mg/dL (0.2-1.2); CALCIUM 7.7 mg/dL (8.4-10.2); CREATININE, SERUM 0.94 mg/dL (0.57-1.11); MAGNESIUM 1.7 MG/DL (1.3-2.1); PHOSPHORUS 1.1 MG/DL (2.3-4.7); POTASSIUM 3.3 mmol/L (3.5-5.1); TOTAL PROTEIN 4.3 g/dL (6.5-8.1)
[2023-07-18] MEDS: INSULIN REGULAR, HUMAN 100 UNIT/1 ML SQ SCH ×4 (07:30→21:59)
[2023-07-18] MEDS: BISACODYL 10 MG SUPP PR SCH (09:00)
[2023-07-18] MEDS: FAMOTIDINE 20 MG/2 ML VIAL IV SCH ×2 (10:19→17:16)
[2023-07-18] MEDS: DORZOLAMIDE/TIMOLOL (OPTH SOL) 10 ML DRPETTE OP SCH ×2 (10:20→21:50)
[2023-07-18] MEDS: BALSAM PERU/CASTOR OIL 60 GM OINT...G. TP SCH (10:20)
[2023-07-18] MEDS ORDERED: BISMUTH SUBSALICYLATE 262 MG/15 ML 8OZ BTL PO PRN (11:30)
[2023-07-18] MEDS: POTASSIUM PHOSPHATE 30 MM in SODIUM CHLORIDE 0.9% 500ML 500 ML IV ONE ×2 (15:04→17:16)
[2023-07-18] MEDS: VANCOMYCIN HCL 125 MG CAPSULE PO SCH (17:16)
[2023-07-18] MEDS: LATANOPROST(OPTH) 2.5 ML BTL OP SCH (21:50)
[2023-07-18] MEDS: KETOROLAC TROMETHAMINE 30 MG/ML VIAL IV PRN (23:13)
[2023-07-19] VITALS (7 sets, daily range): BP systolic 127–142; BP diastolic 39–72; PULSE 94–106; RESP 17–20; TEMP 96.2–97.9; O2SAT 98–100
[2023-07-19] MEDS ORDERED: ZOLPIDEM TARTRATE 10 MG TAB PO PRN
[2023-07-19] MEDS: VANCOMYCIN HCL 125 MG CAPSULE PO SCH ×4 (00:17→17:22)
[2023-07-19] MEDS: SOD CHL 0.45%/POT CHL 20MEQ 1,000 ML IV SCH ×2 (03:12→09:21)
[2023-07-19 05:42] LABS: BASOPHILS # (AUTO) 0.1 (0.0-0.1); BASOPHILS % 0.3 % (0.0-1.0); EOSINOPHILS # (AUTO) 0.7 (0.0-0.4); EOSINOPHILS % 4.4 % (0.0-6.0); HEMATOCRIT 32.7 % (34.2-44.1); HEMOGLOBIN 10.6 g/dL (12.0-16.0); LYMPHOCYTES # (AUTO) 1.4 (1.0-3.2); LYMPHOCYTES % 9.3 % (18.0-39.1); MEAN CORPUSCULAR HGB CONC 32.4 g/dL (31-35); MEAN CORPUSCULAR VOLUME 89.6 fL (81-99); MONOCYTES # (AUTO) 1.6 (0.2-0.8); MONOCYTES % 10.6 % (4.4-11.3); NEUTROPHILS # (AUTO) 11.5 (2.1-6.9); NEUTROPHILS % 74.6 % (38.7-80.0); PLATELET COUNT 225 x10e3/uL (140-360); RED BLOOD COUNT 3.65 x10e6/uL (3.6-5.1); RED CELL DISTRIBUTION WIDTH 16.6 % (11.7-14.4); WHITE BLOOD COUNT 15.41 x10e3/uL (4.8-10.8)
[2023-07-19 06:05] LABS: ANION GAP 11.1 mmol/L (8-16); CALCIUM 7.5 mg/dL (8.4-10.2); CREATININE, SERUM 1.06 mg/dL (0.57-1.11); MAGNESIUM 1.8 MG/DL (1.3-2.1); PHOSPHORUS 2.7 MG/DL (2.3-4.7); POTASSIUM 4.1 mmol/L (3.5-5.1)
[2023-07-19] MEDS: INSULIN REGULAR, HUMAN 100 UNIT/1 ML SQ SCH ×3 (07:30→16:02)
[2023-07-19] MEDS: BISACODYL 10 MG SUPP PR SCH ×2 (09:00→09:27)
[2023-07-19] MEDS: FAMOTIDINE 20 MG/2 ML VIAL IV SCH ×2 (09:18→16:01)
[2023-07-19] MEDS: DORZOLAMIDE/TIMOLOL (OPTH SOL) 10 ML DRPETTE OP SCH (09:19)
[2023-07-19] MEDS: BALSAM PERU/CASTOR OIL 60 GM OINT...G. TP SCH (09:21)
[2023-07-19] MEDS ORDERED: VENELEX OINTMEN60 GM TP (14:37)
[2023-07-19] MEDS ORDERED: SODIUM CHLORI1000 M1 IV (14:37)
[2023-07-19] MEDS ORDERED: XALATAN2.5 ML OU (14:37)
[2023-07-19] MEDS ORDERED: FUROSEMIDE20 MG PO (14:37)
[2023-07-19] MEDS ORDERED: ZOSYN 3.373.375 GM/5 IVP (14:37)
[2023-07-19] MEDS ORDERED: Acetamin/Butalbital/Caffeine PO (14:37)
[2023-07-19] MEDS ORDERED: VANCOMYCIN HCL125 MG PO (14:37)
[2023-07-19] MEDS ORDERED: BISMUTH SUBSALICYLATE PO (14:37)
[2023-07-19] MEDS ORDERED: COSOPT EYE DROP10 ML OU (14:37)
[2023-07-19] MEDS ORDERED: SODIUM BICARBONATE 650 MG TAB PO SCH (17:00)
[2023-07-20] MEDS ORDERED: FAMOTIDINE 20 MG TAB PO SCH (07:30)
[2023-07-20] MEDS ORDERED: FUROSEMIDE 20 MG TAB PO SCH (09:00)
[2023-07-20] MEDS ORDERED: COLLAGENASE 5 GM TUBE TP SCH (09:00)
[2023-08-13] MEDS ORDERED: VANCOMYCIN HCL125 MG PO (12:40)
[2023-08-13] MEDS ORDERED: DIFLUCAN100 MG PO (12:40)
== END 2023-07-19 19:05 | DRG 871 ==
LOC: ER 14:46 → ERHOLD 17:23 → MED/SURG 21:03 → MED/SURG2 07-18 14:47
PROVIDERS: ADMIT Internal Medicine; ATTEND Internal Medicine
PROC: 02HV33Z Insertion of Infusion Device into Superior Vena Cava, Percutaneous Approach (ICD-10-PCS; 2023-07-18)
PROC: 3E03329 Introduction of Other Anti-infective into Peripheral Vein, Percutaneous Approach (ICD-10-PCS; principal; 2023-07-19)
DX: A41.9 Sepsis, unspecified organism (principal); E11.10 Type 2 diabetes mellitus with ketoacidosis without coma; G93.41 Metabolic encephalopathy; T83.511A Infection and inflammatory reaction due to indwelling urethral catheter, initial encounter; N39.0 Urinary tract infection, site not specified; N17.9 Acute kidney failure, unspecified; Z16.24 Resistance to multiple antibiotics; R65.20 Severe sepsis without septic shock; Z66 Do not resuscitate; E87.5 Hyperkalemia; I12.9 Hypertensive chronic kidney disease with stage 1 through stage 4 chronic kidney disease, or unspecified chronic kidney disease; E11.22 Type 2 diabetes mellitus with diabetic chronic kidney disease; N18.9 Chronic kidney disease, unspecified; H40.9 Unspecified glaucoma; E78.5 Hyperlipidemia, unspecified; I27.20 Pulmonary hypertension, unspecified; R53.81 Other malaise; B96.5 Pseudomonas (aeruginosa) (mallei) (pseudomallei) as the cause of diseases classified elsewhere; E86.0 Dehydration; Z99.2 Dependence on renal dialysis; E66.9 Obesity, unspecified; I25.10 Atherosclerotic heart disease of native coronary artery without angina pectoris; N31.8 Other neuromuscular dysfunction of bladder; Z96.0 Presence of urogenital implants; Z68.26 Body mass index [BMI] 26.0-26.9, adult; N31.9 Neuromuscular dysfunction of bladder, unspecified; R19.7 Diarrhea, unspecified; S51.812A Laceration without foreign body of left forearm, initial encounter; X58.XXXA Exposure to other specified factors, initial encounter; L89.152 Pressure ulcer of sacral region, stage 2; J43.9 Emphysema, unspecified; F03.90 Unspecified dementia, unspecified severity, without behavioral disturbance, psychotic disturbance, mood disturbance, and anxiety; N39.46 Mixed incontinence; Y73.8 Miscellaneous gastroenterology and urology devices associated with adverse incidents, not elsewhere classified; H91.90 Unspecified hearing loss, unspecified ear; Z96.642 Presence of left artificial hip joint; Z87.440 Personal history of urinary (tract) infections; Z79.4 Long term (current) use of insulin; Z91.81 History of falling; Z79.899 Other long term (current) drug therapy; Y92.89 Other specified places as the place of occurrence of the external cause; E87.6 Hypokalemia; Z79.01 Long term (current) use of anticoagulants; Z79.1 Long term (current) use of non-steroidal anti-inflammatories (NSAID); Z82.49 Family history of ischemic heart disease and other diseases of the circulatory system; Z83.3 Family history of diabetes mellitus; Z20.822 Contact with and (suspected) exposure to COVID-19
CPT/HCPCS: 36415; 70450; 71045; 74176; 80048; 80053; 80061; 81001; 82550; 82570; 82948; 83036; 83605; 83735; 84100; 84156; 84439; 84443; 84484; 85025; 87086; 87186; 87324; 87449; 93005; 93971; 94799; 99252; 99284; J0692; J1815; J1885; J2543; J7040; J7050; J7799; U0002

== ENCOUNTER 2023-08-11 23:13 | Inpatient (IN) | payer MEDICARE, OTHER ==
[~2023-08-11] VITALS: Ht 160 cm; Wt 68.0 kg
[~2023-08-11 23:13] MED LIST changes: +Acetamin/Butalbital/Caffeine PO; +BISMUTH SUBSALICYLATE PO; +COSOPT EYE DROP10 ML OU; +FUROSEMIDE20 MG PO; +LANTUS 3ML100 UNITS/ SC; +SODIUM CHLORI1000 M1 IV; +VANCOMYCIN HCL125 MG PO; +VENELEX OINTMEN60 GM TP; +XALATAN2.5 ML OU; +ZOSYN 3.373.375 GM/5 IVP
[2023-08-11] MEDS ORDERED: ACETAMINOPHEN 1000 MG/100 ML IV STA (23:15)
[2023-08-11] MEDS ORDERED: SODIUM CHLORIDE 0.9% 1000ML 1,000 ML IV ONE (23:15)
[2023-08-11 23:51] LABS: BASOPHILS # (AUTO) 0.1 (0.0-0.1); BASOPHILS % 0.4 % (0.0-1.0); HEMATOCRIT 35.6 % (34.2-44.1); HEMOGLOBIN 11.4 g/dL (12.0-16.0); LYMPHOCYTES # (AUTO) 1.2 (1.0-3.2); LYMPHOCYTES % 5.2 % (18.0-39.1); MEAN CORPUSCULAR HEMOGLOBIN 29.1 pg (28-32); MEAN CORPUSCULAR VOLUME 90.8 fL (81-99); MONOCYTES # (AUTO) 2.1 (0.2-0.8); MONOCYTES % 9.1 % (4.4-11.3); NEUTROPHILS # (AUTO) 19.3 (2.1-6.9); NEUTROPHILS % 84.3 % (38.7-80.0); PLATELET COUNT 236 x10e3/uL (140-360); RED BLOOD COUNT 3.92 x10e6/uL (3.6-5.1); RED CELL DISTRIBUTION WIDTH 15.4 % (11.7-14.4); WHITE BLOOD COUNT 22.91 x10e3/uL (4.8-10.8)
[2023-08-12] VITALS (12 sets, daily range): BP systolic 107–135; BP diastolic 50–72; PULSE 80–122; RESP 17–20; TEMP 97.5–99.3; O2SAT 95–100
[2023-08-12 00:05] LABS: CLARITY,URINE CLEAR (CLEAR); COLOR,URINE YELLOW (YELLOW); LEUKOCYTE ESTERASE ,URINE SMALL (NEGATIVE); PH,URINE 5.5 (5 - 7)
[2023-08-12 00:06] LABS: BILIRUBIN,URINE SMALL (NEGATIVE); GLUCOSE, URINE NEGATIVE (NEGATIVE); KETONES,URINE NEGATIVE (NEGATIVE); NITRITE,URINE NEGATIVE (NEGATIVE); PROTEIN,URINE DIPSTICK >=300 (NEGATIVE); URINE UROBILINOGEN 0.2 mg/dL (0.2 - 1)
[2023-08-12 00:17] LABS: BACTERIA,URINE MANY /HPF; RBC,URINE 0-5 /HPF (0-5)
[2023-08-12 00:18] LABS: EPITHELIAL CELLS,URINE FEW /LPF
[2023-08-12 00:19] LABS: YEAST,URINE MANY
[2023-08-12] MEDS ORDERED: SODIUM CHLORIDE 0.9% 1000ML 1,000 ML IV ONE (00:30)
[2023-08-12 00:35] LABS: ALBUMIN 1.7 g/dL (3.5-5.0); ALBUMIN/GLOBULIN RATIO 0.6 (0.8-2.0); ANION GAP 15.5 mmol/L (8-16); BILIRUBIN,TOTAL 0.8 mg/dL (0.2-1.2); CALCIUM 7.9 mg/dL (8.4-10.2); CREATININE, SERUM 1.82 mg/dL (0.57-1.11); POTASSIUM 4.5 mmol/L (3.5-5.1); TOTAL PROTEIN 4.6 g/dL (6.5-8.1)
[2023-08-12] MEDS ORDERED: DEXTROSE 50% SYRINGE 50 ML IV PRN (01:15)
[2023-08-12] MEDS ORDERED: ACETAMINOPHEN 325 MG TAB PO PRN (02:00)
[2023-08-12 03:11] LABS: LYMPHOCYTES % (MANUAL) 3 % (19-48); MONOCYTES % (MANUAL) 6 % (3.4-9.0); NEUTROPHILS % (MANUAL) 91 % (40-74); PLATELET ESTIMATE ADEQUATE; PLATELET MORPHOLOGY COMMENT NORMAL; RBC MORPHOLOGY COMMENT NORMAL
[2023-08-12] MEDS: TRAMADOL HCL 50 MG TAB PO PRN (03:22)
[2023-08-12] MEDS: SODIUM CHLORIDE 0.9% 1000ML 1,000 ML IV SCH ×3 (03:23→22:04)
[2023-08-12] MEDS ORDERED: BUPRENORPHINE1 EAC1 (06:13)
[2023-08-12] MEDS ORDERED: GABAPENTIN100 MG PO (06:13)
[2023-08-12] MEDS ORDERED: FAMOTIDINE20 MG PO (06:20)
[2023-08-12] MEDS ORDERED: MELATONIN3 MG PO (06:20)
[2023-08-12] MEDS: INSULIN REGULAR, HUMAN 100 UNIT/1 ML SQ SCH ×4 (08:51→22:11)
[2023-08-12] MEDS: Morphine 2mg Syringe 2 MG/ML SYR IV PRN ×2 (15:36→22:04)
[2023-08-12] MEDS: ONDANSETRON HCL INJ 2MG/ML 2ML 2 MG/ML VIAL IV PRN ×2 (15:36→22:04)
[2023-08-13] VITALS (7 sets, daily range): BP systolic 117–123; BP diastolic 45–90; PULSE 109–126; RESP 17–19; TEMP 97.3–98.1; O2SAT 91–100
[2023-08-13 05:41] LABS: BASOPHILS % 0.2 % (0.0-1.0); EOSINOPHILS % 0.2 % (0.0-6.0); HEMATOCRIT 34.1 % (34.2-44.1); HEMOGLOBIN 10.8 g/dL (12.0-16.0); LYMPHOCYTES # (AUTO) 1.8 (1.0-3.2); MEAN CORPUSCULAR HEMOGLOBIN 28.5 pg (28-32); MEAN CORPUSCULAR HGB CONC 31.7 g/dL (31-35); MONOCYTES # (AUTO) 2.2 (0.2-0.8); MONOCYTES % 9.5 % (4.4-11.3); NEUTROPHILS # (AUTO) 18.3 (2.1-6.9); NEUTROPHILS % 80.8 % (38.7-80.0); PLATELET COUNT 264 x10e3/uL (140-360); RED BLOOD COUNT 3.79 x10e6/uL (3.6-5.1); RED CELL DISTRIBUTION WIDTH 15.2 % (11.7-14.4); WHITE BLOOD COUNT 22.64 x10e3/uL (4.8-10.8)
[2023-08-13 06:11] LABS: ALBUMIN 1.4 g/dL (3.5-5.0); ALBUMIN/GLOBULIN RATIO 0.6 (0.8-2.0); ANION GAP 11.6 mmol/L (8-16); BILIRUBIN,TOTAL 0.3 mg/dL (0.2-1.2); CREATININE, SERUM 1.23 mg/dL (0.57-1.11); POTASSIUM 3.6 mmol/L (3.5-5.1); TOTAL PROTEIN 3.9 g/dL (6.5-8.1)
[2023-08-13 06:18] LABS: CALCIUM 6.6 mg/dL (8.4-10.2)
[2023-08-13] MEDS: Morphine 2mg Syringe 2 MG/ML SYR IV PRN (06:45)
[2023-08-13] MEDS: ONDANSETRON HCL INJ 2MG/ML 2ML 2 MG/ML VIAL IV PRN (06:45)
[2023-08-13] MEDS: INSULIN REGULAR, HUMAN 100 UNIT/1 ML SQ SCH ×2 (07:30→11:30)
[2023-08-13] MEDS: SODIUM CHLORIDE 0.9% 1000ML 1,000 ML IV SCH (08:26)
[2023-08-13] MEDS: TRAMADOL HCL 50 MG TAB PO PRN (08:28)
[2023-08-13 10:26] LABS: LYMPHOCYTES % (MANUAL) 3 % (19-48); MONOCYTES % (MANUAL) 6 % (3.4-9.0); NEUTROPHILS % (MANUAL) 91 % (40-74); PLATELET ESTIMATE ADEQUATE; PLATELET MORPHOLOGY COMMENT NORMAL; RBC MORPHOLOGY COMMENT NORMAL
[2023-08-13] MEDS ORDERED: SODIUM CHLORIDE 0.9% 500ML 500 ML IV ONE (12:15)
[2023-08-13] MEDS ORDERED: FLUCONAZOLE 100 MG TAB PO SCH (12:15)
[2023-08-13] MEDS ORDERED: CIPROFLOXACIN 250 MG TAB PO SCH (12:30)
[2023-08-13] MEDS ORDERED: VANCOMYCIN HCL 125 MG CAPSULE PO SCH (12:30)
[2023-08-13] MEDS ORDERED: VANCOMYCIN HCL125 MG PO (12:40)
[2023-08-13] MEDS ORDERED: DIFLUCAN100 MG PO (12:40)
[2023-08-13] MEDS ORDERED: CALCIUM GLUC 1 G/50 ML NACL 50 ML IV ONE (13:00)
[2023-08-13] MEDS ORDERED: METRONIDAZOLE 500 MG TAB PO SCH (14:00)
== END 2023-08-13 14:45 | disposition hospice, home (50) | DRG 698 ==
LOC: ER 23:17 → ERHOLD 08-12 01:16 → MED/SURG2 08-12 02:50
PROVIDERS: ADMIT Internal Medicine; ATTEND Internal Medicine
DX: T83.518A Infection and inflammatory reaction due to other urinary catheter, initial encounter (principal); I21.4 Non-ST elevation (NSTEMI) myocardial infarction; R65.20 Severe sepsis without septic shock; A09 Infectious gastroenteritis and colitis, unspecified; N17.9 Acute kidney failure, unspecified; B37.49 Other urogenital candidiasis; A04.72 Enterocolitis due to Clostridium difficile, not specified as recurrent; E87.21 Acute metabolic acidosis; N31.9 Neuromuscular dysfunction of bladder, unspecified; Z51.5 Encounter for palliative care; E11.59 Type 2 diabetes mellitus with other circulatory complications; I25.10 Atherosclerotic heart disease of native coronary artery without angina pectoris; D64.9 Anemia, unspecified; I10 Essential (primary) hypertension; I27.20 Pulmonary hypertension, unspecified; E78.5 Hyperlipidemia, unspecified; F32.A Depression, unspecified; E86.0 Dehydration; I25.2 Old myocardial infarction; R00.0 Tachycardia, unspecified; Z79.4 Long term (current) use of insulin; Z11.52 Encounter for screening for COVID-19; Z66 Do not resuscitate; N18.9 Chronic kidney disease, unspecified; M19.90 Unspecified osteoarthritis, unspecified site; H40.9 Unspecified glaucoma
CPT/HCPCS: 36415; 70450; 71045; 74176; 80053; 81001; 82948; 83605; 84484; 85025; 87040; 87086; 87400; 93005; 94799; 96372; 99285; J0696; J2270; J2405; J7030; J7040; U0002